=== PATIENT | female | born 2000 | race Native Hawaiian/Other Pacific Islander ===

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

== ENCOUNTER 2019-02-07 20:01 | Emergency (ER) | payer OTHER ==
[2019-02-07] MEDS ORDERED: FLUTICASONE 50MCG/SPRAY NASAL 16GM EA NOSTRIL STA (20:31)
--- NOTE | 2019-02-07 20:55 | XR ---
EXAMINATION TYPE: XR chest 2V DATE OF EXAM: 02/07/2019 COMPARISON: Prior chest x-ray 06/29/2016 HISTORY: Pain, cough and congestion TECHNIQUE: Frontal and lateral views of the chest are obtained. FINDINGS: There is no focal air space opacity, pleural effusion, or pneumothorax seen. The cardiac silhouette size is within normal limits. The osseous structures are intact. IMPRESSION: No acute cardiopulmonary process.
[2019-02-07 21:06] VITALS: BP 120/60; PULSE 96; RESP 18; TEMP 100.8
--- NOTE | 2019-02-07 21:27 | ED ---
General Adult HPI - General Chief complaint: Upper Respiratory Infection Stated complaint: Sore throat Time Seen by Provider: 02/07/19 20:10 Source: patient, RN notes reviewed, old records reviewed Mode of arrival: ambulatory Limitations: no limitations - History of Present Illness Initial comments: 18-year-old female patient with no pertinent past medical history of proceeding with approximate 2 days of sinus congestion, fevers, sore throat, waxing and waning headache, dry cough. Patient is that she is not . Patient has any other complaints today. Patient denies any abdominal pain, nausea vomiting or diarrhea. Patient denies any chest pain or shortness breath. Systemic: Pt denies fatigue, myalgia, rash. Pt denies weakness, night sweats, weight loss. Neuro: Pt denies visual disturbances, syncope or pre-syncope. HEENT: Pt denies ocular discharge or irritation, otalgia, pharyngitis or notable lymphadenopathy. Cardiopulmonary: Pt denies chest pain, SOB, heart palpitations, dyspnea on exertion. Abdominal/GI: Pt denies abdominal pain, n/v/d. : Pt denies dysuria, burning w/ urination, frequency/urgency. Denies new onset urinary or bowel incontinence. MSK: Pt denies myalgia, loss of strength or function in extremities. Neuro: Pt denies new onset weakness, paresthesias. - Related Data Previous Rx's Medication Instructions Recorded Amoxicillin/Potassium Clav 1 each PO Q12HR 7 Days #14 tab 02/07/19 [Augmentin 875-125 Tablet] Allergies Allergy/AdvReac Type Severity Reaction Status Date / Time polymyxin B sulfate Allergy Intermediate Rash/Hives Verified 02/07/19 20:06 [From Polytrim] trimethoprim [From Polytrim] Allergy Intermediate Rash/Hives Verified 02/07/19 20:06 Review of Systems ROS Statement: Those systems with pertinent positive or pertinent negative responses have been documented in the HPI. ROS Other: All systems not noted in ROS Statement are negative. Past Medical History Past Medical History: No Reported History Additional Past Medical History / Comment(s): MIGRAINES, admit 12/2015 for eye infection that "spread in to my brain" History of Any Multi-Drug Resistant Organisms: None Reported Past Surgical History: No Surgical Hx Reported Past Psychological History: No Psychological Hx Reported Smoking Status: Current every day smoker Past Alcohol Use History: None Reported Past Drug Use History: Marijuana - Past Family History Mother Family Medical History: No Reported History General Exam - General Exam Comments Initial Comments: Constitutional: NAD, AOX3, Pt has pleasant affect. HEENT: NC/AT, trachea midline, neck supple, no lymphadenopathy. Posterior pharynx non erythematous, without exudates. External ears appear normal, without discharge. Mucous membranes moist. Eyes PERRLA, EOM intact. There is no scleral icterus. No pallor noted. Maxillary sinus pressure reproducible upon palpation. Cardiopulmonary: RRR, no murmurs, rubs or gallops, no JVD noted. Lungs CTAB in anterior and posterior sam. No peripheral edema. Abdominal exam: Abdomen soft and non-distended. Abdomen non-tender to palpation in all 4 quadrants. Bowel sounds active in LLQ. No hepatosplenomegaly. No ecchymosis Neuro: CN II-XII intact. No nuchal rigidity. MSK: No posterior calf tenderness bilaterally, homans sign negative bilaterally. Posterior tibialis and radial pulse +2 bilaterally. Sensation intact in upper and lower extremities. Full active ROM in upper and lower extremities, 5/5 stregnth. Limitations: no limitations Course Vital Signs 02/07/19 21:05 Temperature 100.8 F H Pulse Rate 96 Respiratory 18 Rate Blood Pressure 120/60 O2 Sat by Pulse 97 Oximetry Medical Decision Making - Medical Decision Making 18-year-old female patient with no pertinent past medical history of proceeding with approximate 2 days of sinus congestion, fevers, sore throat, waxing and waning headache, dry cough. Patient is that she is not . Patient has any other complaints today. Patient denies any abdominal pain, nausea vomiting or diarrhea. Patient denies any chest pain or shortness breath. Patient vital signs displayed mild fever 100.8. Otherwise stable. Physical exam displayed: Maxillary sinus pressure reproducible upon palpation. Laboratory investigations revealed negative influenza. Chest x-ray revealed no acute cardiopulmonary process. Patient is treated for sinusitis. With Augmentin. Patient to follow up with primary care provider in 1-2 days. Case discussed in depth with Dr. Condon. Patient to return to ER if condition worsens in any way. - Lab Data Lab Results 02/07/19 Range/Units 20:00 Influenza Type A RNA Not Detected (Not Detectd) Influenza Type B (PCR) Not Detected (Not Detectd) Disposition Clinical Impression: Sinusitis Disposition: HOME SELF-CARE Condition: Stable Instructions (If sedation given, give patient instructions): Sinusitis (ED) Additional Instructions: Patient to adhere to previously discussed treatment plan and will take medication(s) as directed. Patient to follow up with PCP in 1-2 days. Patient to return to ED if symptoms do not improve. Please up with primary care provider in 1-2 days for continued evaluation. Please take medication as prescribed. Please control fever as necessary Tylenol/Motrin. Prescriptions: Amoxicillin/Potassium Clav [Augmentin 875-125 Tablet] 1 each PO Q12HR 7 Days #14 tab Is patient prescribed a controlled substance at d/c from ED?: No Referrals: None,Stated [Primary Care Provider] - 1-2 days
== END 2019-02-07 21:45 | disposition home or self-care (01) ==
LOC: EC 20:01
DX: J32.9 Chronic sinusitis, unspecified (principal); F17.200 Nicotine dependence, unspecified, uncomplicated; Z86.69 Personal history of other diseases of the nervous system and sense organs; Z88.1 Allergy status to other antibiotic agents
CPT/HCPCS: 71046; 87502; 99284

== ENCOUNTER 2019-02-10 14:59 | Emergency (ER) | payer OTHER ==
[2019-02-10 15:16] VITALS: BP 156/88; PULSE 73; RESP 18; TEMP 98.1
[2019-02-10] MEDS ORDERED: ACETAMINOPHEN TAB 325 MG TAB PO STA (15:22)
--- NOTE | 2019-02-10 15:35 | XR ---
EXAMINATION TYPE: XR ankle complete RT, XR foot complete RT DATE OF EXAM: 02/10/2019 CLINICAL HISTORY: Twisting injury with pain. TECHNIQUE: Frontal, lateral and oblique images of the right ankle and foot are obtained. COMPARISON: None. FINDINGS: There is no acute fracture/dislocation evident in the right ankle. The ankle mortise appe ars within normal limits. The overlying soft tissue appears unremarkable. There is no acute fracture or dislocation evident in the right foot. The joint spaces in the right f oot are preserved. Overlying soft tissue is unremarkable. IMPRESSION: There is no acute fracture or dislocation in the right ankle or foot.
--- NOTE | 2019-02-10 16:06 | ED ---
General Adult HPI - General Chief complaint: Extremity Injury, Lower Stated complaint: fall/ankle pain Time Seen by Provider: 02/10/19 15:12 Source: patient, RN notes reviewed, old records reviewed Mode of arrival: ambulatory Limitations: no limitations - History of Present Illness Initial comments: 18-year-old female patient with no pertinent past history presents ED if he is standing right foot injury. Patient reports that she was walking down stairs when she stumbled and x-rays pain in her right lateral foot. Patient is currently not ambulatory secondary to pain. Patient denies any other complaints. Patient states that she did not fall, had no trauma to head or neck. Systemic: Pt denies fatigue, fever/chills, rash. Pt denies weakness, night sweats, weight loss. Neuro: Pt denies headache, visual disturbances, syncope or pre-syncope. HEENT: Pt denies ocular discharge or irritation, otalgia, rhinorrhea, pharyngitis or notable lymphadenopathy. Cardiopulmonary: Pt denies chest pain, SOB, heart palpitations, dyspnea on exertion. Abdominal/GI: Pt denies abdominal pain, n/v/d. : Pt denies dysuria, burning w/ urination, frequency/urgency. Denies new onset urinary or bowel incontinence. MSK: Pt denies loss of strength or function in extremities. Neuro: Pt denies new onset weakness, paresthesias. - Related Data Previous Rx's Medication Instructions Recorded Amoxicillin/Potassium Clav 1 each PO Q12HR 7 Days #14 tab 02/07/19 [Augmentin 875-125 Tablet] Ibuprofen [Motrin] 600 mg PO Q6HR PRN #40 day 02/10/19 Allergies Allergy/AdvReac Type Severity Reaction Status Date / Time polymyxin B sulfate Allergy Intermediate Rash/Hives Verified 02/10/19 15:15 [From Polytrim] trimethoprim [From Polytrim] Allergy Intermediate Rash/Hives Verified 02/10/19 15:15 Review of Systems ROS Statement: Those systems with pertinent positive or pertinent negative responses have been documented in the HPI. ROS Other: All systems not noted in ROS Statement are negative. Past Medical History Past Medical History: No Reported History Additional Past Medical History / Comment(s): MIGRAINES, admit 12/2015 for eye infection that "spread in to my brain" History of Any Multi-Drug Resistant Organisms: None Reported Past Surgical History: No Surgical Hx Reported Past Psychological History: No Psychological Hx Reported Smoking Status: Current every day smoker Past Alcohol Use History: None Reported Past Drug Use History: Marijuana - Past Family History Mother Family Medical History: No Reported History General Exam - General Exam Comments Initial Comments: Constitutional: NAD, AOX3, Pt has pleasant affect. HEENT: NC/AT, trachea midline, neck supple, no lymphadenopathy. Posterior pharynx non erythematous, without exudates. External ears appear normal, without discharge. Mucous membranes moist. Eyes PERRLA, EOM intact. There is no scleral icterus. No pallor noted. Cardiopulmonary: RRR, no murmurs, rubs or gallops, no JVD noted. Lungs CTAB in anterior and posterior sam. No peripheral edema. Abdominal exam: Abdomen soft and non-distended. Abdomen non-tender to palpation in all 4 quadrants. Bowel sounds active in LLQ. No hepatosplenomegaly. No ecchymosis Neuro: CN II-XII grossly intact. No nuchal rigidity. MSK: Lateral aspect of right foot mildly tender to palpation. Mild amount of ecchymoses noted. Patient able to wiggle toes. Sensation intact. Capillary refill is less than 2 seconds. Patient's is not ambulatory secondary to pain. No posterior calf tenderness bilaterally, homans sign negative bilaterally. Posterior tibialis and radial pulse +2 bilaterally. Sensation intact in upper and lower extremities. Full active ROM in upper and lower extremities, 5/5 stregnth. Limitations: no limitations Course Vital Signs 02/10/19 15:15 Temperature 98.1 F Pulse Rate 73 Respiratory 18 Rate Blood Pressure 156/88 O2 Sat by Pulse 98 Oximetry Medical Decision Making - Medical Decision Making 18-year-old female patient with no pertinent past history presents ED if he is standing right foot injury. Patient reports that she was walking down stairs when she stumbled and x-rays pain in her right lateral foot. Patient is currently not ambulatory secondary to pain. Patient denies any other complaints. Patient states that she did not fall, had no trauma to head or neck. Patient vital signs stable, afebrile. Physical exam displayed: Lateral aspect of right foot mildly tender to palpation. Mild amount of ecchymoses noted. Patient able to wiggle toes. Sensation intact. Capillary refill is less than 2 seconds. Patient's is not ambulatory secondary to pain. Plain film revealed no acute fracture and ankle or foot. Patient placed in postop walking boot. Patient to use crutches, not bear weight until follow-up with primary care provider. Patient also to follow up with orthopedic surgeon referral. Patient denies ibuprofen as needed for pain. Patient to return to ER if condition worsens in any way. Case discussed with Dr. Condon. Disposition Clinical Impression: Sprain of foot, right Disposition: HOME SELF-CARE Condition: Stable Instructions (If sedation given, give patient instructions): Foot Sprain (ED) Additional Instructions: Patient to adhere to previously discussed treatment plan and will take medication(s) as directed. Patient to follow up with PCP in 1-2 days. Patient to return to ED if symptoms do not improve. Please use ibuprofen as needed for pain. Please do not bear weight, use crutches. Please help with primary care provider in 1-2 days. Please follow up with orthopedic consult 1-2 days. Please return to ER if condition worsens in any way. Prescriptions: Ibuprofen [Motrin] 600 mg PO Q6HR PRN #40 day PRN Reason: Pain Is patient prescribed a controlled substance at d/c from ED?: No Referrals: None,Stated [Primary Care Provider] - 1-2 days Federico Velasquez MD [STAFF PHYSICIAN] - [facility] - 1-2 days
== END 2019-02-10 16:29 | disposition home or self-care (01) ==
LOC: EC 14:59
DX: S93.601A Unspecified sprain of right foot, initial encounter (principal); F17.200 Nicotine dependence, unspecified, uncomplicated; Z88.1 Allergy status to other antibiotic agents; Z88.8 Allergy status to other drugs, medicaments and biological substances; W18.40XA Slipping, tripping and stumbling without falling, unspecified, initial encounter; Y93.01 Activity, walking, marching and hiking; Y92.009 Unspecified place in unspecified non-institutional (private) residence as the place of occurrence of the external cause
CPT/HCPCS: 99284

== ENCOUNTER 2019-05-11 00:14 | Emergency (ER) | payer OTHER ==
[2019-05-11 00:30] VITALS: BP 115/68; PULSE 85; RESP 18; TEMP 98.4
[2019-05-11 01:57] LABS: Appearance,Urine Cloudy (Clear); Bilirubin,Urine Negative (Negative); Blood,Urine Negative (Negative); Color,Urine Yellow; Glucose,Urine (UA) Negative (Negative); Ketones,Urine Trace (Negative); Leukocyte Esterase,Urine Small (Negative); Mucus,Urine Few /hpf; Nitrite,Urine Negative (Negative); Protein,Urine Trace (Negative); RBC,Urine 3 /hpf (0-5); Squamous Epithelial Cell,Urine 39 /hpf (0-4)
--- NOTE | 2019-05-11 03:28 | ED ---
Female Urogenital HPI - General Source: patient Mode of arrival: ambulatory Limitations: no limitations - History of Present Illness Last Menstrual Period: 05/03/19 <Veronica Bourne - Last Filed: 05/11/19 05:10> <Chantel Paula - Last Filed: 05/11/19 06:16> - General Chief complaint: Urogenital Stated complaint: Abdominal Pain Time Seen by Provider: 05/11/19 02:22 - History of Present Illness Initial comments: 18-year-old female patient presents to the emergency department today for evaluation of suprapubic abdominal pain and vaginal pain. Patient states over the last week she's been having intermittent episodes sometimes a few per day where she will have a sudden intense cramping pain to her vagina. Patient states this does double over and makes her feel like she cannot stand. States the pain radiates through to her back. Patient denies any pain with int ercourse. Patient denies any hematuria, dysuria, urinary urgency, urinary frequency. She states that she is having some white vaginal discharge. States that her period was 8 days late and was shorter than usual and heavier than usual. Patient denies any current vaginal discharge. Denies any history of . She denies any fever or chills with this. Denies any nausea, vomiting, constipation, or diarrhea. Patient denies any recent rash, shortness breath, chest pain, numbness, tingling, dizziness, weakness, visual changes, or any other complaints. (Veronica Bourne) - Related Data Previous Rx's Medication Instructions Recorded Amoxicillin/Potassium Clav 1 each PO Q12HR 7 Days #14 tab 02/07/19 [Augmentin 875-125 Tablet] Ibuprofen [Motrin] 600 mg PO Q6HR PRN #40 day 02/10/19 Ibuprofen [Motrin] 600 mg PO Q8HR PRN #30 tab 05/11/19 Allergies Allergy/AdvReac Type Severity Reaction Status Date / Time polymyxin B sulfate Allergy Intermediate Rash/Hives Verified 05/11/19 00:30 [From Polytrim] trimethoprim [From Polytrim] Allergy Intermediate Rash/Hives Verified 05/11/19 00:30 Review of Systems ROS Other: All systems not noted in ROS Statement are negative. <Veronica Bourne - Last Filed: 05/11/19 05:10> ROS Other: All systems not noted in ROS Statement are negative. <Chantel Paula P - Last Filed: 05/11/19 06:16> ROS Statement: Those systems with pertinent positive or pertinent negative responses have been documented in the HPI. Past Medical History Past Medical History: No Reported History Additional Past Medical History / Comment(s): MIGRAINES, admit 12/2015 for eye infection that "spread in to my brain" History of Any Multi-Drug Resistant Organisms: None Reported Past Surgical History: No Surgical Hx Reported Past Psychological History: No Psychological Hx Reported Smoking Status: Current every day smoker Past Alcohol Use History: None Reported Past Drug Use History: Marijuana - Past Family History Mother Family Medical History: No Reported History <Veronica Bourne M - Last Filed: 05/11/19 05:10> General Exam Limitations: no limitations General appearance: alert, in no apparent distress, other (Physical well- developed, well-nourished adult female patient in no acute distress. Vital signs upon presentation are temperature 98.4F, pulse 85, respirations 18, blood pressure 115/68, pulse ox 100% on room air.) Eye exam: Present: normal appearance, PERRL, EOMI. Absent: scleral icterus, conjunctival injection, periorbital swelling ENT exam: Present: normal exam, normal oropharynx, mucous membranes moist Respiratory exam: Present: normal lung sounds bilaterally. Absent: respiratory distress, wheezes, rales, rhonchi, stridor Cardiovascular Exam: Present: regular rate, normal rhythm, normal heart sounds. Absent: systolic murmur, diastolic murmur, rubs, gallop, clicks GI/Abdominal exam: Present: soft, tenderness (Supra pubic), normal bowel sounds. Absent: distended, guarding, rebound, rigid External exam: Present: normal external exam Speculum exam: Present: vaginal discharge (White thin). Absent: normal speculum exam, vaginal bleeding By manual exam: Present: cervical motion tenderness, adnexal tenderness (Left). Absent: normal by manual exam Neurological exam: Present: alert, oriented X3, CN II-XII intact Psychiatric exam: Present: normal affect, normal mood Skin exam: Present: warm, dry, intact, normal color. Absent: rash <Veronica Bourne M - Last Filed: 05/11/19 05:10> Course Vital Signs 06/11/19 00:25 Temperature 98.4 F Pulse Rate 85 Respiratory 18 Rate Blood Pressure 115/68 O2 Sat by Pulse 100 Oximetry Medical Decision Making - Lab Data Result diagrams: 05/11/19 03:23 05/11/19 03:23 - Radiology Data Radiology results: report reviewed, image reviewed <Veronica Bourne - Last Filed: 05/11/19 05:10> - Lab Data Result diagrams: 05/11/19 03:23 05/11/19 03:23 <Chantel Paula - Last Filed: 05/11/19 06:16> - Medical Decision Making 18-year-old female patient presented to the emergency department today for evaluation of vaginal pain and cramping. Physical examination did reveal some mild suprapubic tenderness. Pelvic exam was obtained, patient did have significant discomfort with pelvic and bimanual exam. There is some white cervical discharge which was sent for culture. Urinalysis shows no evidence of infection. CT abdomen and pelvis was obtained and did show prominent left ovary but no evidence for ovarian cyst or abscess. Patient be discharged to follow up with a plant buyer for further evaluation. She is given a prescription for ibuprofen. Return parameters were discussed in detail. She verbalizes understanding and agrees with this plan. (Veronica Bourne) I was available for consultation in the emergency department. The history and physical exam were done by the midlevel provider. I was consulted for this patient's care. I reviewed the case with the midlevel provider and based on their presentation of the patient, I agree with the assessment, medical decision making and plan of care as documented. Chart was dictated using [employer] dictation software. Attempts were made to correct any dictation errors however some typographical errors may persist. (Chantel Paula) - Lab Data Lab Results 05/11/19 05/11/19 05/11/19 Range/Units 00:29 00:29 03:06 WBC (4.0-11.0) k/uL RBC (3.80-5.40) m/uL Hgb (11.4-16.0) gm/dL Hct (34.0-46.0) % MCV (80.0-100.0) fL MCH (25.0-35.0) pg MCHC (31.0-37.0) g/dL RDW (11.5-15.5) % Plt Count (150-450) k/uL Neutrophils % % Lymphocytes % % Monocytes % % Eosinophils % % Basophils % % Neutrophils # (1.3-7.7) k/uL Lymphocytes # (1.0-4.8) k/uL Monocytes # (0-1.0) k/uL Eosinophils # (0-0.7) k/uL Basophils # (0-0.2) k/uL Sodium (137-145) mmol/L Potassium (3.5-5.1) mmol/L Chloride (98-107) mmol/L Carbon Dioxide (22-30) mmol/L Anion Gap mmol/L BUN (7-17) mg/dL Creatinine (0.52-1.04) mg/dL Est GFR (CKD-EPI)AfAm (>60 ml/min/1.73 sqM) Est GFR (CKD-EPI)NonAf (>60 ml/min/1.73 sqM) Glucose (74-99) mg/dL Calcium (8.4-10.2) mg/dL Total Bilirubin (0.2-1.3) mg/dL AST (14-36) U/L ALT (9-52) U/L Alkaline Phosphatase (38-126) U/L Total Protein (6.3-8.2) g/dL Albumin (3.5-5.0) g/dL Urine Color Yellow Urine Appearance Cloudy H (Clear) Urine pH 6.0 (5.0-8.0) Ur Specific [place] 1.030 (1.001-1.035) Urine Protein Trace H (Negative) Urine Glucose (UA) Negative (Negative) Urine Ketones Trace H (Negative) Urine Blood Negative (Negative) Urine Nitrite Negative (Negative) Urine Bilirubin Negative (Negative) Urine Urobilinogen 2.0 (<2.0) mg/dL Ur Leukocyte Esterase Small H (Negative) Urine RBC 3 (0-5) /hpf Urine WBC 5 (0-5) /hpf Ur Squamous Epith Cells 39 H (0-4) /hpf Urine Mucus Few H (None) /hpf Urine HCG, Qual Not Detected (Not Detectd) Trichomonas Ag (Rapid) Negative (Negative) 05/11/19 05/11/19 Range/Units 03:23 03:23 WBC 10.5 (4.0-11.0) k/uL RBC 4.45 (3.80-5.40) m/uL Hgb 12.0 (11.4-16.0) gm/dL Hct 36.8 (34.0-46.0) % MCV 82.7 (80.0-100.0) fL MCH 27.0 (25.0-35.0) pg MCHC 32.6 (31.0-37.0) g/dL RDW 15.2 (11.5-15.5) % Plt Count 199 (150-450) k/uL Neutrophils % 51 % Lymphocytes % 38 % Monocytes % 6 % Eosinophils % 3 % Basophils % 0 % Neutrophils # 5.3 (1.3-7.7) k/uL Lymphocytes # 4.0 (1.0-4.8) k/uL Monocytes # 0.6 (0-1.0) k/uL Eosinophils # 0.3 (0-0.7) k/uL Basophils # 0.0 (0-0.2) k/uL Sodium 142 (137-145) mmol/L Potassium 3.3 L (3.5-5.1) mmol/L Chloride 110 H (98-107) mmol/L Carbon Dioxide 23 (22-30) mmol/L Anion Gap 9 mmol/L BUN 10 (7-17) mg/dL Creatinine 0.70 (0.52-1.04) mg/dL Est GFR (CKD-EPI)AfAm >90 (>60 ml/min/1.73 sqM) Est GFR (CKD-EPI)NonAf >90 (>60 ml/min/1.73 sqM) Glucose 90 (74-99) mg/dL Calcium 9.5 (8.4-10.2) mg/dL Total Bilirubin 0.2 (0.2-1.3) mg/dL AST 22 (14-36) U/L ALT 22 (9-52) U/L Alkaline Phosphatase 62 (38-126) U/L Total Protein 7.2 (6.3-8.2) g/dL Albumin 4.5 (3.5-5.0) g/dL Urine Color Urine Appearance (Clear) Urine pH (5.0-8.0) Ur Specific Knox (1.001-1.035) Urine Protein (Negative) Urine Glucose (UA) (Negative) Urine Ketones (Negative) Urine Blood (Negative) Urine Nitrite (Negative) Urine Bilirubin (Negative) Urine Urobilinogen (<2.0) mg/dL Ur Leukocyte Esterase (Negative) Urine RBC (0-5) /hpf Urine WBC (0-5) /hpf Ur Squamous Epith Cells (0-4) /hpf Urine Mucus (None) /hpf Urine HCG, Qual (Not Detectd) Trichomonas Ag (Rapid) (Negative) - Radiology Data CT abdomen and pelvis with contrast was obtained. Report was reviewed in its entirety. Impression by Dr. Horton shows no acute intra-abdominal process. Hepatomegaly with steatosis. Prominent left ovary measuring up to 4.4 cm. (Veronica Bourne) Disposition Is patient prescribed a controlled substance at d/c from ED?: No Time of Disposition: 05:06 <Veronica Bourne - Last Filed: 05/11/19 05:10> <Chantel Paula - Last Filed: 05/11/19 06:16> Clinical Impression: Vaginal pain Disposition: HOME SELF-CARE Condition: Good Additional Instructions: Take medication as directed. Follow up with plant buyer for further evaluation as soon as possible. Return to the emergency department immediately for any new, worsening, or concerning symptoms. Prescriptions: Ibuprofen [Motrin] 600 mg PO Q8HR PRN #30 tab PRN Reason: Pain Referrals: Bisi Fontaine DO [Doctor of Osteopathic Medicine] - 1-2 days
[2019-05-11 03:38] LABS: Basophils % (A) 0 %; Eosinophils # (A) 0.3 k/uL (0-0.7); Eosinophils % (A) 3 %; HCT 36.8 % (34.0-46.0); Lymphocytes % (A) 38 %; MCHC 32.6 g/dL (31.0-37.0); MCV 82.7 fL (80.0-100.0); Mean Platelet Volume 8.2; Monocytes # (A) 0.6 k/uL (0-1.0); Monocytes % (A) 6 %; Neutrophils # (A) 5.3 k/uL (1.3-7.7); Neutrophils % (A) 51 %; Platelet Count 199 k/uL (150-450); RBC 4.45 m/uL (3.80-5.40); RDW 15.2 % (11.5-15.5); WBC 10.5 k/uL (4.0-11.0)
[2019-05-11 03:51] LABS: ALT 22 U/L (9-52); AST 22 U/L (14-36); African American GFR (CKD) >90 (>60 ml/min/1.73 sqM); Albumin 4.5 g/dL (3.5-5.0); Alkaline Phosphatase 62 U/L (38-126); Anion Gap 9 mmol/L; Blood Urea Nitrogen 10 mg/dL (7-17); Calcium 9.5 mg/dL (8.4-10.2); Carbon Dioxide 23 mmol/L (22-30); Chloride 110 mmol/L (98-107); Glucose 90 mg/dL (74-99); Potassium 3.3 mmol/L (3.5-5.1); Sodium 142 mmol/L (137-145); Total Bilirubin 0.2 mg/dL (0.2-1.3); Total Protein 7.2 g/dL (6.3-8.2)
--- NOTE | 2019-05-11 04:52 | CT ---
EXAM: CT Abdomen and Pelvis With Intravenous Contrast CLINICAL HISTORY: ITS.REASON CT Reason: Pain TECHNIQUE: Axial computed tomography images of the abdomen and pelvis with intravenous contrast. CTDI is 21 mGy and DLP is 1034 mGy-cm. This CT exam was performed using one or more of the following dose reduction techniques: automated exposure control, adjustment of the mA and/or kV according to patient size, and/or use of iterative reconstruction technique. COMPARISON: 07/26/15 CT abdomen FINDINGS: Lung bases: No mass. No consolidation. ABDOMEN: Liver: Enlarged with mild steatosis. Gallbladder and bile ducts: Unremarkable. Pancreas: Unremarkable. Spleen: Unremarkable. Adrenals: Unremarkable. Kidneys and ureters: No hydronephrosis. Stomach and bowel: No bowel obstruction. No bowel wall thickening. PELVIS: Appendix: No evidence of appendicitis. Bladder: Unremarkable. Reproductive: Left ovary measures up to 4.4 cm. Right ovary measures approximately 3 cm. ABDOMEN and PELVIS: Intraperitoneal space: Unremarkable. Bones/joints: No acute fractures. Soft tissues: Unremarkable. Vasculature: No abdominal aortic aneurysm. Lymph nodes: No enlarged lymph nodes. IMPRESSION: No acute intra-abdominal process. Hepatomegaly with steatosis. Prominent left ovary measuring up to 4.4 cm.
[2019-05-11] MEDS ORDERED: POTASSIUM CHLORIDE ER 20 MEQ TAB.ER PO STA (05:03)
[2019-05-12 16:08] LABS: N. gonorrhoeae,PCR Negative (Neg,Equiv); Neisseria Source Vagina
[2019-05-12 16:12] LABS: C. trachomatis,PCR Negative (Neg,Equiv); Chlamydia trachomatis Source Vagina
== END 2019-05-11 05:30 | disposition home or self-care (01) ==
LOC: EC 00:14
DX: R10.2 Pelvic and perineal pain (principal); R10.9 Unspecified abdominal pain; N89.8 Other specified noninflammatory disorders of vagina; F17.200 Nicotine dependence, unspecified, uncomplicated; Z88.1 Allergy status to other antibiotic agents
CPT/HCPCS: 36415; 80053; 85025; 81001; 81025; 87808; 87491; 87591; 87070; 87205; 74177; 99284; Q9967

== ENCOUNTER 2019-09-04 21:14 | Emergency (ER) | payer OTHER ==
--- NOTE | 2019-09-04 23:09 | US ---
EXAMINATION TYPE: Transabdominal DATE OF EXAM: 09/04/2019 10:48 PM COMPARISON: NONE CLINICAL HISTORY: fall, 6 wks preg, cramping/pain. Patient fell down 4 stairs this afternoon, crampin g EXAM PERFORMED: Transvaginal (TV) and Transabdominal (TA) EXAM MEASUREMENTS: GESTATIONAL AGE / DATING Physician Established: Not yet established Dates by LMP: (6 weeks/2 days) EDC: 04/27/20 Dates by First Scan: No previous this is first scan Dates by Current Scan for: No IUP seen at this time MATERNAL ANATOMY Uterus: 7.1 x 3.4 x 5.1cm Right Ovary: 2.6 x 1.4 x 1.7cm Left Ovary: 5.5 x 2.5 x 4.3cm Post CDS / Adnexa: free fluid posterior cul-de-sac Presence of free fluid: yes Presence of corpus luteal cyst: cystic area left ovary = 2.2 x 2.2 x 2.2cm GESTATION / SURVEY IUP: No IUP seen at this time Date of LMP: 07/22/19 Beta HcG (if available): Not available at this time Technical limitations due to overlying bowel content, limited evaluation of right ovary. No evidence of IUP at this time. Cystic area left ovary. Free fluid posterior cul-de-sac IMPRESSION: There is some free fluid in the cul-de-sac. Empty uterus. No solid adnexal mass. Left ovarian cyst. N o sign of ectopic .
--- NOTE | 2019-09-04 23:11 | ED ---
Fall HPI - General Chief Complaint: Fall Stated Complaint: 6wks ,fell down stairs Time Seen by Provider: 09/04/19 21:33 Source: patient Mode of arrival: ambulatory - History of Present Illness Initial Comments: 19-year-old female with history of migraines presents emergency department for chief complaint of abdominal cramping status post fall. Patient states late morning she fell down 4 steps. She states she fell onto her bottom. Patient states that she had had abdominal cramping since. Patient states she has not had back pain neck pain she denies any head injury or injury to the neck. Patient denies any direct abdominal trauma. Patient denies any trauma to the chest or face. Patient has a pain in the upper or lower extremities. Patient was concerned that the cramping was a miscarriage and presents emergency department for further evaluation. Patient denies any vaginal bleeding denies any vaginal discharge orders dysuria urgency frequency hematuria. Patient states she started to feel slightly better. Patient states her last menstrual period was July 22, she states she has had an evaluation outpatient by a clinic she states she believes she is about 6 weeks . Remaining review of systems negative. Upon arrival patient appears well she is accompanied by 2 friends does not appear acute distress - Related Data Previous Rx's Medication Instructions Recorded Pnv No.95/Ferrous Fum/Folic AC 1 each PO DAILY 30 Days #30 tablet 09/05/19 [ Multivitamin Tablet] Allergies Allergy/AdvReac Type Severity Reaction Status Date / Time polymyxin B sulfate Allergy Intermediate Rash/Hives Verified 09/04/19 21:26 [From Polytrim] trimethoprim [From Polytrim] Allergy Intermediate Rash/Hives Verified 09/04/19 21:26 Review of Systems ROS Statement: Those systems with pertinent positive or pertinent negative responses have been documented in the HPI. ROS Other: All systems not noted in ROS Statement are negative. Past Medical History Past Medical History: No Reported History Additional Past Medical History / Comment(s): MIGRAINES, admit 12/2015 for eye infection that "spread in to my brain" History of Any Multi-Drug Resistant Organisms: None Reported Past Surgical History: No Surgical Hx Reported Past Psychological History: No Psychological Hx Reported Smoking Status: Current every day smoker Past Alcohol Use History: None Reported Past Drug Use History: Marijuana - Past Family History Mother Family Medical History: No Reported History General Exam - General Exam Comments Initial Comments: General: The patient is awake and alert, in no distress, and does not appear acutely ill. Eye: +3 mm pupils are equal, round and reactive to light, extra-ocular movements are intact. No nystagmus. There is normal conjunctiva bilaterally. No signs of icterus. Ears, nose, mouth and throat: There are moist mucous membranes and no oral lesions. Neck: The neck is supple, there is no tenderness or JVD. Cardiovascular: There is a regular rate and rhythm. No murmur, rub or gallop is appreciated. Respiratory: Lungs are clear to auscultation, respirations are non-labored, breath sounds are equal. No wheezes, stridor, rales, or rhonchi. Gastrointestinal: Soft, non-distended, non-tender abdomen without masses or organomegaly noted. There is no rebound or guarding present. No CVA tenderness. Pelvic exam revealed no external lesions, vaginal mucosa pink well rugated. Scant amount of discharge with no odor on examination. Patient has no cervical motion or adnexal tenderness. No blood in the vaginal vault. Os closed Musculoskeletal: Normal inspection of cervical thoracic and lumbar spine. There is no midline or paravertebral tenderness. No evidence of bruising. Normal ROM, no tenderness. Strength 5/5. Sensation intact. Radial pulses equal bilaterally 2+. Neurological: A&O x 3. CN II-XII intact grossly, There are no obvious motor or sensory deficits. Coordination appears grossly intact. Speech is normal. Skin: Skin is warm and dry and no rashes or lesions are noted. Psychiatric: Cooperative, appropriate mood & affect, normal judgment. Limitations: no limitations Course Vital Signs 09/04/19 09/05/19 21:23 00:34 Temperature 98.3 F 98.1 F Pulse Rate 106 H 99 Respiratory 18 18 Rate Blood Pressure 120/74 136/96 O2 Sat by Pulse 100 98 Oximetry Medical Decision Making - Medical Decision Making 19-year-old female presenting for evaluation of cramping after falling. Patient states she is currently . Last menstrual period July 22 leave she is roughly 6 weeks . Ultrasound did not reveal interuterine . There was a scant amount of free fluid in the posterior cul-de-sac. There is no findings on the ultrasound consistent with ectopic . Patient has hCG less than 900. Patient O+ there is no bleeding on vaginal examination no adnexal or cervical motion tenderness and cervical os is closed. Differential diagnosis includes threatened/active miscarriage versus early . Patient does not appear in distress she is well-appearing no [place] pain on examination. At this time after discussing case in detail reviewing ultrasound studies and labs with my attending provider Dr. Paula we feel patient stable for discharge with outpatient [employer] follow-up. Recommended repeat hCG as well as ultrasound. Patient is agreeable to this care plan she has requested discharge on multiple occasions stating she is ready to go home. Patient was discharged appearing well return parameters were discussed including immediate return for severe pain, patient was discharged appearing well - Lab Data Result diagrams: 09/04/19 22:45 09/04/19 22:45 Lab Results 09/04/19 09/04/19 09/04/19 Range/Units 22:45 22:45 22:45 WBC 12.5 H (4.0-11.0) k/uL RBC 4.60 (3.80-5.40) m/uL Hgb 12.8 (11.4-16.0) gm/dL Hct 40.0 (34.0-46.0) % MCV 87.0 (80.0-100.0) fL MCH 27.8 (25.0-35.0) pg MCHC 32.0 (31.0-37.0) g/dL RDW 14.5 (11.5-15.5) % Plt Count 196 (150-450) k/uL Neutrophils % 57 % Lymphocytes % 32 % Monocytes % 6 % Eosinophils % 3 % Basophils % 1 % Neutrophils # 7.1 (1.3-7.7) k/uL Lymphocytes # 4.0 (1.0-4.8) k/uL Monocytes # 0.7 (0-1.0) k/uL Eosinophils # 0.4 (0-0.7) k/uL Basophils # 0.1 (0-0.2) k/uL Sodium 141 (137-145) mmol/L Potassium 4.0 (3.5-5.1) mmol/L Chloride 107 (98-107) mmol/L Carbon Dioxide 22 (22-30) mmol/L Anion Gap 12 mmol/L BUN 7 (7-17) mg/dL Creatinine 0.62 (0.52-1.04) mg/dL Est GFR (CKD-EPI)AfAm >90 (>60 ml/min/1.73 sqM) Est GFR (CKD-EPI)NonAf >90 (>60 ml/min/1.73 sqM) Glucose 69 L (74-99) mg/dL Calcium 9.5 (8.4-10.2) mg/dL Total Bilirubin 0.4 (0.2-1.3) mg/dL AST 26 (14-36) U/L ALT 19 (9-52) U/L Alkaline Phosphatase 53 (38-126) U/L Total Protein 7.7 (6.3-8.2) g/dL Albumin 4.6 (3.5-5.0) g/dL HCG, Quant 894.6 mIU/mL Urine Color Urine Appearance (Clear) Urine pH (5.0-8.0) Ur Specific Dendron (1.001-1.035) Urine Protein (Negative) Urine Glucose (UA) (Negative) Urine Ketones (Negative) Urine Blood (Negative) Urine Nitrite (Negative) Urine Bilirubin (Negative) Urine Urobilinogen (<2.0) mg/dL Ur Leukocyte Esterase (Negative) Trichomonas Ag (Rapid) (Negative) Blood Type A Positive Blood Type Recheck No Previous Record Bld Type Recheck Status CABO Indicated Antibody Screen NEGATIVE Spec Expiration Date 09/07/2019232809/04/19 09/05/19 Range/Units 22:57 00:20 WBC (4.0-11.0) k/uL RBC (3.80-5.40) m/uL Hgb (11.4-16.0) gm/dL Hct (34.0-46.0) % MCV (80.0-100.0) fL MCH (25.0-35.0) pg MCHC (31.0-37.0) g/dL RDW (11.5-15.5) % Plt Count (150-450) k/uL Neutrophils % % Lymphocytes % % Monocytes % % Eosinophils % % Basophils % % Neutrophils # (1.3-7.7) k/uL Lymphocytes # (1.0-4.8) k/uL Monocytes # (0-1.0) k/uL Eosinophils # (0-0.7) k/uL Basophils # (0-0.2) k/uL Sodium (137-145) mmol/L Potassium (3.5-5.1) mmol/L Chloride (98-107) mmol/L Carbon Dioxide (22-30) mmol/L Anion Gap mmol/L BUN (7-17) mg/dL Creatinine (0.52-1.04) mg/dL Est GFR (CKD-EPI)AfAm (>60 ml/min/1.73 sqM) Est GFR (CKD-EPI)NonAf (>60 ml/min/1.73 sqM) Glucose (74-99) mg/dL Calcium (8.4-10.2) mg/dL Total Bilirubin (0.2-1.3) mg/dL AST (14-36) U/L ALT (9-52) U/L Alkaline Phosphatase (38-126) U/L Total Protein (6.3-8.2) g/dL Albumin (3.5-5.0) g/dL HCG, Quant mIU/mL Urine Color Yellow Urine Appearance Clear (Clear) Urine pH 6.5 (5.0-8.0) Ur Specific Dendron 1.026 (1.001-1.035) Urine Protein Trace H (Negative) Urine Glucose (UA) Negative (Negative) Urine Ketones Negative (Negative) Urine Blood Negative (Negative) Urine Nitrite Negative (Negative) Urine Bilirubin Negative (Negative) Urine Urobilinogen <2.0 (<2.0) mg/dL Ur Leukocyte Esterase Negative (Negative) Trichomonas Ag (Rapid) Negative (Negative) Blood Type Blood Type Recheck Bld Type Recheck Status Antibody Screen Spec Expiration Date Disposition Clinical Impression: Threatened , Abdominal cramping Disposition: HOME SELF-CARE Condition: Good Instructions (If sedation given, give patient instructions): Threatened Miscarriage (ED) Additional Instructions: Please use medication as discussed. Please follow-up with OBGYN in next week, repeat HCG and ultrasound. Please return to emergency room if the symptoms inc rease or worsen or for any other concerns. Prescriptions: Pnv No.95/Ferrous Fum/Folic AC [ Multivitamin Tablet] 1 each PO DAILY 30 Days #30 tablet Is patient prescribed a controlled substance at d/c from ED?: No Referrals: None,Stated [Primary Care Provider] - 1-2 days Jocelynn Guzman MD [STAFF PHYSICIAN] - 1-2 days Time of Disposition: 00:25
[2019-09-04 23:20] LABS: Basophils # (A) 0.1 k/uL (0-0.2); Basophils % (A) 1 %; Eosinophils # (A) 0.4 k/uL (0-0.7); Eosinophils % (A) 3 %; HGB 12.8 gm/dL (11.4-16.0); Lymphocytes % (A) 32 %; MCH 27.8 pg (25.0-35.0); Mean Platelet Volume 7.8; Monocytes # (A) 0.7 k/uL (0-1.0); Monocytes % (A) 6 %; Neutrophils # (A) 7.1 k/uL (1.3-7.7); Neutrophils % (A) 57 %; Platelet Count 196 k/uL (150-450); RDW 14.5 % (11.5-15.5); WBC 12.5 k/uL (4.0-11.0)
[2019-09-04 23:21] LABS: Appearance,Urine Clear (Clear); Bilirubin,Urine Negative (Negative); Blood,Urine Negative (Negative); Color,Urine Yellow; Glucose,Urine (UA) Negative (Negative); Ketones,Urine Negative (Negative); Leukocyte Esterase,Urine Negative (Negative); Nitrite,Urine Negative (Negative); PH, Urine 6.5 (5.0-8.0); Protein,Urine Trace (Negative); Specific Gravity,Urine 1.026 (1.001-1.035); Urobilinogen,Urine <2.0 mg/dL (<2.0)
[2019-09-04 23:33] LABS: ALT 19 U/L (9-52); AST 26 U/L (14-36); African American GFR (CKD) >90 (>60 ml/min/1.73 sqM); Albumin 4.6 g/dL (3.5-5.0); Alkaline Phosphatase 53 U/L (38-126); Anion Gap 12 mmol/L; Blood Urea Nitrogen 7 mg/dL (7-17); Calcium 9.5 mg/dL (8.4-10.2); Carbon Dioxide 22 mmol/L (22-30); Chloride 107 mmol/L (98-107); Glucose 69 mg/dL (74-99); Sodium 141 mmol/L (137-145); Total Bilirubin 0.4 mg/dL (0.2-1.3); Total Protein 7.7 g/dL (6.3-8.2)
[2019-09-04 23:49] LABS: HCG,Quantitative Serum 894.6 mIU/mL
[2019-09-05 00:19] VITALS: TEMP 98.1
[2019-09-05 00:35] VITALS: BP 136/96; PULSE 99; RESP 18
[2019-09-06 13:39] LABS: C. trachomatis,PCR Negative (Neg,Equiv); Chlamydia trachomatis Source Vagina; N. gonorrhoeae,PCR Negative (Neg,Equiv); Neisseria Source Vagina
== END 2019-09-05 00:35 | disposition home or self-care (01) ==
LOC: EC 21:14
DX: O20.0 Threatened abortion (principal); Z67.40 Type O blood, Rh positive; O99.331 Smoking (tobacco) complicating pregnancy, first trimester; F17.200 Nicotine dependence, unspecified, uncomplicated; Z88.1 Allergy status to other antibiotic agents; W10.9XXA Fall (on) (from) unspecified stairs and steps, initial encounter; Y92.89 Other specified places as the place of occurrence of the external cause; Z3A.01 Less than 8 weeks gestation of pregnancy
CPT/HCPCS: 36415; 76801; 76817; 80053; 81003; 84702; 85025; 86850; 86900; 86901; 87070; 87491; 87591; 87808; 99284

== ENCOUNTER → 2019-11-03 | Outpatient (CLI) | payer OTHER ==
[2019-11-03 14:20] LABS: HCT 38.5 % (34.0-46.0); HGB 13.2 gm/dL (11.4-16.0); MCH 29.9 pg (25.0-35.0); MCHC 34.2 g/dL (31.0-37.0); MCV 87.5 fL (80.0-100.0); Mean Platelet Volume 7.2; Platelet Count 181 k/uL (150-450); RDW 14.2 % (11.5-15.5); WBC 13.2 k/uL (4.0-11.0)
[2019-11-03 20:02] LABS: African American GFR (CKD) 152.1 (60.0-200.0); Non-African American GFR(CKD) 131.2 (60.0-200.0)
[2019-11-03 20:23] LABS: Hepatitis B Surface Antigen Non-Reactive (Non-Reactive)
[2019-11-03 20:31] LABS: HIV 1 AB Non-Reactive (Non-Reactive); HIV 2 AB Non-Reactive (Non-Reactive); HIV AB P24 Non-Reactive (Non-Reactive); HIV P24 AG Non-Reactive (Non-Reactive)
[2019-11-04 16:15] LABS: C. trachomatis,PCR Negative (Neg,Equiv); Chlamydia trachomatis Source Urine; N. gonorrhoeae,PCR Negative (Neg,Equiv); Neisseria Source Urine
== END | disposition home or self-care (01) ==
LOC: LABWHC1 13:35
PROVIDERS: ATTEND Obstetrics & Gynecology
DX: Z34.01 Encounter for supervision of normal first pregnancy, first trimester (principal); Z3A.00 Weeks of gestation of pregnancy not specified
CPT/HCPCS: 36415; 82565; 82947; 85027; 86762; 86780; 86850; 86900; 86901; 87340; 87390; 87491; 87591

== ENCOUNTER 2020-01-04 19:50 | Outpatient (CLI) | payer OTHER ==
[2020-01-04 20:37] VITALS: BP 138/73; PULSE 98; RESP 18; TEMP 97.7
[2020-01-04 20:44] LABS: Appearance,Urine Clear (Clear); Bilirubin,Urine Negative (Negative); Blood,Urine Negative (Negative); Color,Urine Light Yellow; Glucose,Urine (UA) Negative (Negative); Ketones,Urine Negative (Negative); Leukocyte Esterase,Urine Negative (Negative); Nitrite,Urine Negative (Negative); PH, Urine 6.5 (5.0-8.0); Protein,Urine Negative (Negative); Specific Gravity,Urine 1.008 (1.001-1.035); Urobilinogen,Urine <2.0 mg/dL (<2.0)
--- NOTE | 2020-01-05 06:45 | P.MSEPDOC ---
Presenting Problems - Arrival Data Date of Arrival on Unit: 01/04/20 Time of Arrival on Unit: 19:50 Mode of Transport: Ambulatory - Complaint OB-Reason for Admission/Chief Complaint: Pain Comment: pain started 45 min prior to arrival when walking home from a friends house. lower abdominal and lower back pt rates 8/10. Medical History - Information : 1 Para: 0 Term: 0 : 0 Abortions: Spontaneous or Elective: 0 Number of Living Children: 0 - Gestational Age Gestational Age by CORINNE (wks/days): 22 Weeks and 0 Days Review of Systems - Review of Systems Constitutional: No problems Breast: No problems ENT: No problems Cardiovascular: No problems Respiratory: No problems Gastrointestinal: No problems Genitourinary: Urgency Musculoskeletal: No problems Neurological: No problems Skin: No problems Vital Signs - Temperature Temperature: 97.7 F Temperature Source: Temporal Artery Scan - Pulse Right Pulse Oximetery Pulse Rate: 98 Pulse Assessment Method: Pulse Oximetry - Respirations Respiratory Rate: 18 Oxygen Delivery Method: Room Air O2 Sat by Pulse Oximetry: 98 - Blood Pressure Right Arm Blood Pressure: 138/73 Blood Pressure Mean: 94 Blood Pressure Source: Automatic Cuff Medical Screen Scoring (Pre) - Cervical Exam Dilation: 0 cm = 0 Membranes: Intact - Uterine Contractions Frequency: N/A Duration: N/A Intensity: N/A - Maternal Vital Signs Maternal Temperature: N/A Maternal Blood Pressure: N/A Signs of Preeclampsia: N/A Maternal Respirations: N/A - Maternal Trauma Maternal Trauma: N/A - Assessment - Baby A Baseline FHR: 140 Heart Rate - NICHD Category: Category I (Normal) = 0 Position: N/A Station: N/A - Total Score - Baby A Total Score - Baby A: 0 - Total Score - Baby B Total Score - Baby B: 0 - Total Score - Baby C Total Score - Baby C: 0 - Level of Risk - Baby A Level of Risk - Baby A: Low (0-5) - Level of Risk - Baby B Level of Risk - Baby B: Low (0-5) - Level of Risk - Baby C Level of Risk - Baby C: Low (0-5) Physician Notification (Pre) - Physician Notified Physician Notified Date: 01/04/20 Physician Notified Time: 20:15 New Order Received: Yes - Notification Comment Comment: order received to send U/A and culture and sensitivity and check patients cervix. physician states if patients cervix is closed, pt to be discharged with instructions to increase fluids and to call office for culture results in 2 days. states not necessary to wait for U/A prior to discharge Disposition - Disposition OB Disposition: Discharge to home Discharge Date: 01/04/20 Discharge Time: 20:30 I agree with the RN Medical Screening Exam: Yes Risk & Benefit of care provided described in d/c instruction: Yes Diagnosis: FALSE LABOR BEFORE 37 COMPLETED WEEKS OF GEST, THIRD TRI
== END 2020-01-04 20:30 | disposition home or self-care (01) ==
LOC: FBPOP 19:50
PROVIDERS: ATTEND Obstetrics & Gynecology
DX: O47.02 False labor before 37 completed weeks of gestation, second trimester (principal); Z3A.22 22 weeks gestation of pregnancy
CPT/HCPCS: 81003; 87086; G0463; 99213

== ENCOUNTER 2020-02-12 19:05 | Outpatient (CLI) | payer OTHER ==
[2020-02-12 20:17] VITALS: BP 128/75; PULSE 95; RESP 16; TEMP 96.5
--- NOTE | 2020-02-22 07:37 | P.MSEPDOC ---
Presenting Problems - Arrival Data Date of Arrival on Unit: 02/12/20 Time of Arrival on Unit: 19:05 Mode of Transport: Ambulatory - Complaint OB-Reason for Admission/Chief Complaint: Decreased Movement Comment: Pt states decreased movement since yesterday Medical History - Information : 1 Para: 0 Term: 0 : 0 Abortions: Spontaneous or Elective: 0 Number of Living Children: 0 - Gestational Age Gestational Age by CORINNE (wks/days): 29 Weeks and 1 Days - History Complications: No Care Review of Systems - Review of Systems Constitutional: No problems Breast: No problems ENT: No problems Cardiovascular: No problems Respiratory: No problems Gastrointestinal: No problems Genitourinary: No problems Musculoskeletal: No problems Neurological: No problems Skin: No problems Vital Signs - Temperature Temperature: 96.5 F Temperature Source: Temporal Artery Scan - Pulse Right Brachial Pulse Rate: 95 Pulse Assessment Method: Automatic Cuff - Respirations Respiratory Rate: 16 Oxygen Delivery Method: Room Air O2 Sat by Pulse Oximetry: 98 - Blood Pressure Right Arm Blood Pressure: 128/75 Blood Pressure Mean: 92 Blood Pressure Source: Automatic Cuff Medical Screen Scoring (Pre) - Cervical Exam Dilation: Exam Deferred Effacement: Exam Deferred - Uterine Contractions Frequency: N/A Duration: N/A Intensity: N/A - Maternal Vital Signs Maternal Temperature: N/A Signs of Preeclampsia: N/A Maternal Respirations: N/A - Maternal Trauma Maternal Trauma: N/A - Assessment - Baby A Baseline FHR: 135 Heart Rate - NICHD Category: Category I (Normal) = 0 - Total Score - Baby A Total Score - Baby A: 0 - Total Score - Baby B Total Score - Baby B: 0 - Total Score - Baby C Total Score - Baby C: 0 - Level of Risk - Baby A Level of Risk - Baby A: Low (0-5) - Level of Risk - Baby B Level of Risk - Baby B: Low (0-5) - Level of Risk - Baby C Level of Risk - Baby C: Low (0-5) Physician Notification (Pre) - Physician Notified Physician Notified Date: 02/12/20 Physician Notified Time: 19:50 New Order Received: Yes - Notification Comment Comment: D/c home, reactive NST, pt feeling infant moving. Disposition - Disposition OB Disposition: Discharge to home, Written follow up instructions reviewed Discharge Date: 02/12/20 Discharge Time: 19:57 I agree with the RN Medical Screening Exam: Yes Risk & Benefit of care provided described in d/c instruction: Yes Diagnosis: DECREASED MOVEMENTS, THIRD TRIMESTER, FETUS 1
== END 2020-02-12 19:57 | disposition home or self-care (01) ==
LOC: FBPOP 19:05
PROVIDERS: ATTEND Obstetrics & Gynecology
DX: O36.8131 Decreased fetal movements, third trimester, fetus 1 (principal); Z3A.29 29 weeks gestation of pregnancy
CPT/HCPCS: 59025; G0463; 99213

== ENCOUNTER 2020-03-26 12:32 | Outpatient (CLI) | payer OTHER ==
[2020-03-26] MEDS ORDERED: LACTATED RINGERS 1,000 ML IV SCH (13:45)
[2020-03-26 13:49] LABS: Basophils % (A) 0 %; Eosinophils # (A) 0.2 k/uL (0-0.7); Eosinophils % (A) 2 %; HCT 38.4 % (34.0-46.0); HGB 12.4 gm/dL (11.4-16.0); Lymphocytes # (A) 1.8 k/uL (1.0-4.8); Lymphocytes % (A) 16 %; MCH 28.7 pg (25.0-35.0); MCHC 32.4 g/dL (31.0-37.0); MCV 88.8 fL (80.0-100.0); Mean Platelet Volume 9.4; Monocytes # (A) 0.7 k/uL (0-1.0); Monocytes % (A) 6 %; Neutrophils # (A) 8.4 k/uL (1.3-7.7); Neutrophils % (A) 75 %; Platelet Count 138 k/uL (150-450); RBC 4.33 m/uL (3.80-5.40); RDW 14.3 % (11.5-15.5); WBC 11.2 k/uL (4.0-11.0)
[2020-03-26 15:03] LABS: Amorphous Sediment,Urine Few /hpf; Appearance,Urine Turbid (Clear); Bilirubin,Urine 1+ (Negative); Blood,Urine Trace (Negative); Color,Urine Yellow; Glucose,Urine (UA) Negative (Negative); Ketones,Urine Negative (Negative); Leukocyte Esterase,Urine Negative (Negative); Mucus,Urine Occasional /hpf; Nitrite,Urine Negative (Negative); PH, Urine 7.5 (5.0-8.0); Protein,Urine Trace (Negative); RBC,Urine 3 /hpf (0-5); Specific Gravity,Urine 1.019 (1.001-1.035); Squamous Epithelial Cell,Urine <1 /hpf (0-4); WBC,Urine 3 /hpf (0-5)
[2020-03-26 16:27] VITALS: BP 137/78; PULSE 98; RESP 16; TEMP 96.2
--- NOTE | 2020-04-06 08:59 | P.MSEPDOC ---
Presenting Problems - Arrival Data Date of Arrival on Unit: 03/26/20 Time of Arrival on Unit: 12:32 Mode of Transport: Wheelchair - Complaint OB-Reason for Admission/Chief Complaint: Pain Comment: pelvic pressure and back pain Medical History - Information : 1 Para: 0 Term: 0 : 0 Abortions: Spontaneous or Elective: 0 Number of Living Children: 0 - Gestational Age Gestational Age by CORINNE (wks/days): 35 Weeks and 2 Days - History Complications: Smoker Review of Systems - Review of Systems Constitutional: No problems Breast: No problems ENT: No problems Cardiovascular: No problems Respiratory: No problems Gastrointestinal: No problems Genitourinary: No problems Musculoskeletal: No problems Neurological: No problems Skin: No problems Vital Signs - Temperature Temperature: 96.2 F Temperature Source: Temporal Artery Scan - Pulse Right Sitting Pulse Rate: 98 Pulse Assessment Method: Automatic Cuff - Respirations Respiratory Rate: 16 Oxygen Delivery Method: Room Air - Blood Pressure Right Arm Blood Pressure: 137/78 Blood Pressure Mean: 97 Blood Pressure Source: Automatic Cuff Medical Screen Scoring (Pre) - Cervical Exam Dilation: 1-3 cm = 1 Membranes: Intact - Uterine Contractions Frequency: N/A Duration: N/A Intensity: N/A - Maternal Vital Signs Maternal Temperature: N/A Maternal Blood Pressure: N/A Signs of Preeclampsia: N/A Maternal Respirations: N/A - Maternal Trauma Maternal Trauma: N/A - Assessment - Baby A Baseline FHR: 150 Heart Rate - NICHD Category: Category I (Normal) = 0 NST: Reactive Position: N/A Station: N/A - Total Score - Baby A Total Score - Baby A: 1 - Total Score - Baby B Total Score - Baby B: 1 - Total Score - Baby C Total Score - Baby C: 1 - Level of Risk - Baby A Level of Risk - Baby A: Low (0-5) - Level of Risk - Baby B Level of Risk - Baby B: Low (0-5) - Level of Risk - Baby C Level of Risk - Baby C: Low (0-5) Physician Notification (Pre) - Physician Notified Physician Notified Date: 03/26/20 Physician Notified Time: 13:15 New Order Received: Yes (iv hydration, cbc, ua) Disposition - Disposition OB Disposition: Discharge to home Discharge Date: 03/26/20 Discharge Time: 15:30 I agree with the RN Medical Screening Exam: Yes Physician's MSE Comment: Pt was seen in triage by myself as well. She did look uncomfortable at first but with IV fluids, she appeared comfortable in the bed. Her abdomen was soft, only tender in suprapubic area and low back. Minimal vaginal bleeding on pad after digital exam of cervix. category 1 tracing Risk & Benefit of care provided described in d/c instruction: Yes Risk & Benefit of Care Comment: Pt was instructed to return in pain or bleeding increased. Diagnosis: URINARY TRACT INFECTION, SITE NOT SPECIFIED
== END 2020-03-26 15:30 | disposition home or self-care (01) ==
LOC: FBPOP 12:32
PROVIDERS: ATTEND Obstetrics & Gynecology
DX: O23.43 Unspecified infection of urinary tract in pregnancy, third trimester (principal); O99.333 Smoking (tobacco) complicating pregnancy, third trimester; F17.200 Nicotine dependence, unspecified, uncomplicated; Z3A.35 35 weeks gestation of pregnancy
CPT/HCPCS: 59025; 96360; 96361; 85025; 81001; 87086; G0463; 99214

== ENCOUNTER 2020-03-26 23:49 | Inpatient (IN) | payer OTHER ==
[2020-03-27] MEDS ORDERED: LIDOCAINE 0.5% (PF) 5 MG/ML (50 ML SDV) SQ PRN (00:41)
[2020-03-27] MEDS ORDERED: TERBUTALINE 1 MG/ML VIAL SQ PRN (00:41)
[2020-03-27] MEDS ORDERED: OXYTOCIN 10 UNIT/ML 1 ML VIAL IM PRN (00:41)
[2020-03-27] MEDS ORDERED: CITRIC ACID-SODIUM CITRATE 15 ML CUP PO ONE (00:41)
[2020-03-27] MEDS ORDERED: METHYLERGONOVINE 0.2 MG/ML 1 ML AMP IM PRN (00:41)
[2020-03-27] MEDS ORDERED: CARBOPROST TROMETHAMINE 250 MCG/ML 1 ML AMP IM PRN (00:41)
[2020-03-27 01:00] LABS: Basophils % (A) 0 %; Eosinophils # (A) 0.5 k/uL (0-0.7); Eosinophils % (A) 2 %; HCT 36.5 % (34.0-46.0); HGB 11.6 gm/dL (11.4-16.0); Lymphocytes # (A) 1.6 k/uL (1.0-4.8); Lymphocytes % (A) 7 %; MCH 28.3 pg (25.0-35.0); MCHC 31.9 g/dL (31.0-37.0); MCV 88.8 fL (80.0-100.0); Mean Platelet Volume 9.9; Monocytes # (A) 0.8 k/uL (0-1.0); Monocytes % (A) 3 %; Neutrophils # (A) 20.8 k/uL (1.3-7.7); Neutrophils % (A) 88 %; Platelet Count 146 k/uL (150-450); RBC 4.11 m/uL (3.80-5.40); RDW 14.1 % (11.5-15.5); WBC 23.8 k/uL (4.0-11.0)
[2020-03-27] MEDS ORDERED: MORPHINE SULFATE (PF) 0.3 MG/0.3 ML SYR ONE (01:07)
[2020-03-27] MEDS ORDERED: ONDANSETRON 4 MG/2 ML VIAL ONE (01:07)
[2020-03-27] MEDS ORDERED: OXYTOCIN 10 UNIT/ML 1 ML VIAL ONE (01:07)
--- NOTE | 2020-03-27 01:11 | US ---
EXAMINATION TYPE: US OB limited DATE OF EXAM: 03/27/2020 COMPARISON: NONE CLINICAL HISTORY: bleeding and pain. pelvic pain and bleeding today EXAM PERFORMED: Transabdominal (TA) GESTATIONAL AGE / DATING Physician Established: (35 weeks/3 days) EDC: 04/28/20 SURVEY PLACENTA: Anterior - heterogeneous PREVIA: No Previa CATHERINE: 8.8 cm lower limits of normal CERVICAL LENGTH (transabdominal: norm > 3.0cm): 4.5 cm PRESENTATION: Vertex LIE: Longitudinal HEART RATE: 149 bpm RHYTHM: Normal IMPRESSION: Cervix is closed. Amniotic fluid is adequate. No complicating process seen.
[2020-03-27] MEDS ORDERED: ONDANSETRON 4 MG/2 ML VIAL IVP PRN (01:35)
[2020-03-27] MEDS ORDERED: NALOXONE 0.4 MG/ML 1 ML VIAL IV PRN (01:35)
[2020-03-27] MEDS ORDERED: diphenhydrAMINE 50 MG/ML 1 ML VIAL IVP PRN ×3 (01:35→01:57)
[2020-03-27] MEDS ORDERED: LANOLIN CREAM 5 GM TUBE TOPICAL PRN (01:57)
[2020-03-27] MEDS ORDERED: diphenhydrAMINE 25 MG CAP PO PRN (01:57)
[2020-03-27] MEDS ORDERED: METOCLOPRAMIDE 5 MG/ML 2 ML VIAL IVP PRN (01:57)
[2020-03-27] MEDS ORDERED: ACETAMINOPHEN TAB 325 MG TAB PO PRN (01:57)
[2020-03-27] MEDS ORDERED: ZOLPIDEM 5 MG TAB PO PRN (01:57)
[2020-03-27] MEDS ORDERED: diphenhydrAMINE 50 MG CAP PO PRN (01:57)
[2020-03-27] MEDS ORDERED: SIMETHICONE 80 MG CHEWABLE PO PRN (01:57)
[2020-03-27] MEDS ORDERED: OXYTOCIN 20 UNITS/1000 ML NS 1,000 ML IV SCH (02:00)
--- NOTE | 2020-03-27 02:18 | P.HPOB ---
History of Present Illness H&P Date: 03/27/20 Chief Complaint: vaginal bleeding and abdominal pain 19-year-old presents at 35 weeks and 1 day complaining of suprapubic pain, back pain and increased vaginal bleeding. Her cervix is once entered, 90% effaced, and -2 station. She is skyla every 2-3 minutes. heart tones 140 with minimal variability and repetitive decelerations down to 120 after contractions. This is a category 3 monitoring strip. Patient was in earlier in the day but was not having contractions, did have some suprapubic pain and back pain but her abdomen was soft and heart tones had moderate variability with a reactive NST. She called me after her pain and bleeding increased at home and instructed her to come back to the hospital. She came back to the hospital approximately 2 hours after a spoke with her. Review of Systems All systems: negative Constitutional: Denies chills, Denies fever Eyes: denies blurred vision, denies pain Ears, nose, mouth and throat: Denies headache, Denies sore throat Cardiovascular: Denies chest pain, Denies shortness of breath Respiratory: Denies cough Gastrointestinal: Denies abdominal pain, Denies diarrhea, Denies nausea, Denies vomiting Genitourinary: Denies dysuria, Denies hematuria Musculoskeletal: Denies myalgias Integumentary: Denies pruritus, Denies rash Neurological: Denies numbness, Denies weakness Psychiatric: Denies anxiety, Denies depression Endocrine: Denies fatigue, Denies weight change Past Medical History Past Medical History: No Reported History Additional Past Medical History / Comment(s): MIGRAINES, admit 12/2015 for eye infection that "spread in to my brain". Obstetric history:She has had care with Dr Hernandez. A+, abs neg, Rub Imm, RPR NR, Hep B neg. History of Any Multi-Drug Resistant Organisms: None Reported Past Surgical History: No Surgical Hx Reported Past Anesthesia/Blood Transfusion Reactions: No Reported Reaction Past Psychological History: No Psychological Hx Reported Smoking Status: Current every day smoker Past Alcohol Use History: None Reported Past Drug Use History: Marijuana Additional Drug Use History / Comment(s): pt states smokes less than half a pack a day - Past Family History Mother Family Medical History: No Reported History Medications and Allergies Home Medications Medication Instructions Recorded Confirmed Type Pnv No.95/Ferrous Fum/Folic AC 1 each PO DAILY 30 Days #30 tablet 09/05/19 03/26/20 Rx [ Multivitamin Tablet] Allergies Allergy/AdvReac Type Severity Reaction Status Date / Time polymyxin B sulfate Allergy Intermediate Rash/Hives Verified 03/26/20 13:36 [From Polytrim] trimethoprim [From Polytrim] Allergy Intermediate Rash/Hives Verified 03/26/20 13:36 Exam Osteopathic Statement: *. No significant issues noted on an osteopathic structural exam other than those noted in the History and Physical/Consult. Vital Signs Temp Pulse Resp BP 03/27/20 00:03 97.6 F 72 16 132/64 03/26/20 23:57 97.6 F 87 16 132/64 Intake and Output 03/26/20 03/26/20 03/27/20 14:59 22:59 06:59 Other: Weight 96.162 kg Heart: Regular rate and rhythm Lungs: Clear to auscultation bilaterally Abdomen: Soft, tender over the lower pelvis/uterus but soft. tender with contractions. Extremities: Negative Homans sign Results Result Diagrams: 03/27/20 00:39 Abnormal Lab Results - Last 24 Hours (Table) 03/27/20 Range/Units 00:39 WBC 23.8 H (4.0-11.0) k/uL Plt Count 146 L (150-450) k/uL Neutrophils # 20.8 H (1.3-7.7) k/uL Assessment and Plan (1) with third trimester bleeding, antepartum Current Visit: Yes Status: Acute Code(s): O46.93 - ANTEPARTUM HEMORRHAGE, UNSPECIFIED, THIRD TRIMESTER SNOMED Code(s): 845603264 (2) 35 weeks gestation of Current Visit: Yes Status: Acute Code(s): Z3A.35 - 35 WEEKS GESTATION OF SNOMED Code(s): 52143014 (3) Late deceleration of heart rate Current Visit: Yes Status: Acute Code(s): O36.8390 - MATERN CARE FOR ABNLT FETL HRT RATE OR RHYM, UNSP TRI, UNSP SNOMED Code(s): 355852722 Plan: 1. Informed consent was obtained and section was called 2. prep for
--- NOTE | 2020-03-27 02:29 | P.OP ---
Date of Procedure: 03/27/20 Preoperative Diagnosis: 1. at 35 weeks and 1 day 2. Category 3 heart tones 3. Vaginal bleeding in the third trimester Postoperative Diagnosis: 1. at 35 weeks and 1 day 2. Category 3 heart tones 3. Vaginal bleeding in the third trimester 4. Abruption of the placenta Procedure(s) Performed: Primary low transverse Anesthesia: spinal Surgeon: Alva Sparrow Weather Forcaster #1: Johana Covington Estimated Blood Loss (ml): 1,000 IV fluids (ml): 1,000 Urine output (ml): 300 Pathology: other (Placenta) Condition: stable Disposition: floor Indications for Procedure: Please see dictated H&P for indications for this procedure. Operative Findings: Viable male, Apgars pending, weight 4 pounds 8.8 ounces Description of Procedure: Patient was taken to the operating room where spinal anesthesia was found be adequate. She was prepped and draped in normal sterile fashion in dorsal supine position with a leftward tilt. Pfannenstiel skin incision was made the scalpel and carried through to the underlying layer of fascia with the scalpel. Fascia was incised in midline and carried bilaterally with the Gonsales scissors. The superior aspect of the fascial incision was grasped with Darlene clamps elevated and the underlying rectus muscles dissected off with the Gonsales's. Attention was then turned to inferior aspect of same incision which in a similar fashion was grasped tented up and the underlying rectus muscles dissected off with the Gonsales's. The rectus muscles were the midline and the peritoneum was identified tented up and entered sharply with the scalpel. The incision was extended superiorly and inferiorly with good visualization of the bladder. The bladder blade was inserted. A low transverse incision was then made on the uterus with the scalpel. This was carried bilaterally and digital manner. 's head delivered atraumatically, nose and mouth bulb suctioned, cord clamped and cut, handed off to waiting nurses. Apgars pending, weight 4 lbs. 8.8 oz. Placenta delivered manually, intact with three-vessel cord. There were several clots behind the placenta indicating the likelihood of abruption. The uterus is exteriorized and cleared of all clots and debris. The uterine incision was closed with 0 Vicryl in a running locked fashion. Second layer of the same sutures used in imbricating fashion to obtain excellent hemostasis. Both ovaries and tubes appeared normal. The uterus was placed back into the abdomen. The fascia was reapproximated using 0 Vicryl in a running fashion. The subcutaneous tissues closed with 3-0 Vicryl running fashion. The skin was closed zechariah. Patient tolerated the procedure well, sponge and instrument counts were correct times 2 and she was taken to the recovery room in stable condition.
[2020-03-27] MEDS: KETOROLAC 30 MG/ML 1 ML VIAL IVP SCH ×3 (07:54→20:37)
[2020-03-27] MEDS: LACTATED RINGERS 1,000 ML IV SCH ×6 (07:55→23:12)
[2020-03-27] MEDS: MORPHINE SULFATE 2 MG/ML SYRINGE IVP PRN ×2 (10:14→16:41)
[2020-03-27] MEDS: SENNOSIDES-DOCUSATE SODIUM 1 EACH TAB PO SCH ×2 (10:29→20:37)
[2020-03-28] MEDS: MORPHINE SULFATE 2 MG/ML SYRINGE IVP PRN (00:11)
[2020-03-28] MEDS: KETOROLAC 30 MG/ML 1 ML VIAL IVP SCH (02:33)
[2020-03-28] MEDS: LACTATED RINGERS 1,000 ML IV SCH (02:58)
[2020-03-28] MEDS: HYDROcodone/APAP 7.5-325MG 1 EACH TAB PO PRN ×3 (05:39→19:32)
[2020-03-28 05:54] LABS: Basophils % (A) 0 %; Eosinophils # (A) 0.2 k/uL (0-0.7); Eosinophils % (A) 1 %; HCT 29.3 % (34.0-46.0); Hypochromasia Slight; Lymphocytes # (A) 2.7 k/uL (1.0-4.8); Lymphocytes % (A) 23 %; MCH 29.9 pg (25.0-35.0); MCHC 33.2 g/dL (31.0-37.0); MCV 90.3 fL (80.0-100.0); Mean Platelet Volume 10.6; Monocytes # (A) 0.8 k/uL (0-1.0); Monocytes % (A) 7 %; Neutrophils # (A) 7.9 k/uL (1.3-7.7); Neutrophils % (A) 67 %; Platelet Count 104 k/uL (150-450); RBC 3.24 m/uL (3.80-5.40); RDW 14.3 % (11.5-15.5); WBC 11.8 k/uL (4.0-11.0)
[2020-03-28 06:10] LABS: HGB 9.7 gm/dL (11.4-16.0)
--- NOTE | 2020-03-28 06:51 | P.PN ---
Progress Note - Text Progress Note Date: 03/28/20 Patient doing well. Ambulating without pain or paresthesia. Denies headache or pruritis. Moderate pain treated with breakthrough medication. Back c/d A/P POD#1 s/p with duramorph -- doing well
--- NOTE | 2020-03-28 08:19 | P.PNOBGPC ---
Subjective - Subjective Principal diagnosis: S/P 1*LTCS POD #1 Interval history: Pt seen and examined. denies N/V, F,/C, CP, SOB, calf pain. Her pain is controlled and she did realize that after we had a talk about realistic expectations of pain control with po pain meds, ice packs, ets. reviewed Incentive Spirometry. Patient reports: Reports appetite normal, Reports voiding normally, Reports pain well controlled, Reports ambulating normally Objective - Vital Signs Latest vital signs: Vital Signs Temp Pulse Resp BP Pulse Ox 03/28/20 08:00 98.7 F 90 16 116/67 98 03/28/20 00:00 98.8 F 79 18 122/63 98 03/27/20 19:55 99.0 F 87 18 116/71 100 03/27/20 16:00 98.3 F 66 16 118/68 99 03/27/20 12:00 98.3 F 76 16 115/62 99 03/27/20 10:00 16 Intake and Output 03/27/20 03/28/20 03/28/20 22:59 06:59 14:59 Output Total 200 550 Balance -200 -550 Output: Urine 200 550 Straight 200 Other: # Voids 0 1 1 - Exam Lungs: bilateral: normal Chest: Normal S1, Normal S2 Extremities: Present: normal Abdomen: Present: normal appearance, soft. Absent: distention, tenderness Incision: Present: normal, dry, intact Uterus: Present: normal, firm - Labs Labs: Abnormal Lab Results - Last 24 Hours (Table) 03/28/20 Range/Units 05:34 WBC 11.8 H (4.0-11.0) k/uL RBC 3.24 L (3.80-5.40) m/uL Hgb 9.7 L D (11.4-16.0) gm/dL Hct 29.3 L (34.0-46.0) % Plt Count 104 L (150-450) k/uL Neutrophils # 7.9 H (1.3-7.7) k/uL Assessment and Plan (1) with third trimester bleeding, antepartum Current Visit: Yes Status: Resolved Code(s): O46.93 - ANTEPARTUM HEMORRHAGE, UNSPECIFIED, THIRD TRIMESTER SNOMED Code(s): 388758403 (2) 35 weeks gestation of Current Visit: Yes Status: Resolved Code(s): Z3A.35 - 35 WEEKS GESTATION OF SNOMED Code(s): 28200249 (3) Late deceleration of heart rate Current Visit: Yes Status: Resolved Code(s): O36.8390 - MATERN CARE FOR ABNLT FETL HRT RATE OR RHYM, UNSP TRI, UNSP SNOMED Code(s): 941414215 (4) Status post primary low transverse section Current Visit: Yes Status: Acute Code(s): Z98.891 - HISTORY OF UTERINE SCAR FROM PREVIOUS SURGERY SNOMED Code(s): 883989347 Plan: 1. increase ambulation 2. po pain meds 3. IS 4. reg diet
[2020-03-28] MEDS: IBUPROFEN 600 MG TAB PO PRN ×3 (09:04→22:35)
[2020-03-28] MEDS: SENNOSIDES-DOCUSATE SODIUM 1 EACH TAB PO SCH ×2 (09:04→19:32)
[2020-03-29] MEDS: HYDROcodone/APAP 7.5-325MG 1 EACH TAB PO PRN ×3 (01:40→19:37)
[2020-03-29] MEDS: SENNOSIDES-DOCUSATE SODIUM 1 EACH TAB PO SCH ×2 (08:14→19:37)
--- NOTE | 2020-03-29 08:23 | P.PNOBGPC ---
Subjective - Subjective Principal diagnosis: Postop day 2 Interval history: Patient doing very well postop day 2 from primary section. She is involuting, voiding and tolerating her diet. She voices no complaints other than incisional tenderness. She is passing flatus. Patient reports: Reports appetite normal, Reports voiding normally, Reports pain well controlled, Reports ambulating normally : in NICU Objective - Vital Signs Latest vital signs: Vital Signs Temp Pulse Resp BP Pulse Ox 03/29/20 00:00 98.3 F 83 16 125/75 97 03/28/20 15:59 98.5 F 99 16 113/59 99 Intake and Output 03/28/20 03/29/20 03/29/20 22:59 06:59 14:59 Other: # Voids 1 2 - Exam Lungs: bilateral: normal Chest: Normal S1, Normal S2 Extremities: Present: normal Abdomen: Present: normal appearance, soft. Absent: distention, tenderness Incision: Present: normal, dry, intact Uterus: Present: normal, firm
[2020-03-29] MEDS: IBUPROFEN 600 MG TAB PO PRN ×2 (13:02→22:46)
[2020-03-30] MEDS: HYDROcodone/APAP 7.5-325MG 1 EACH TAB PO PRN ×3 (01:23→22:47)
[2020-03-30] MEDS: IBUPROFEN 600 MG TAB PO PRN ×2 (04:39→16:29)
[2020-03-30] MEDS: SENNOSIDES-DOCUSATE SODIUM 1 EACH TAB PO SCH ×2 (08:00→21:54)
--- NOTE | 2020-03-30 10:09 | P.PNOBGPC ---
Subjective - Subjective Principal diagnosis: Postop day 3 Interval history: Patient doing very well this morning. Her pain is much better controlled and she is ambulating voiding without difficulty. She voices no complaints this time. Patient reports: Reports appetite normal, Reports voiding normally, Reports pain well controlled, Reports ambulating normally [place]: in NICU Objective - Vital Signs Latest vital signs: Vital Signs Temp Pulse Resp BP Pulse Ox 03/30/20 08:00 98.2 F 94 18 104/62 97 03/29/20 23:54 98.7 F 81 16 112/62 03/29/20 16:00 98.4 F 76 18 131/74 97 Intake and Output 03/29/20 03/30/20 03/30/20 22:59 06:59 14:59 Other: # Voids 2 1 2 # Bowel Movements 1 1 - Exam Lungs: bilateral: normal Chest: Normal S1, Normal S2 Extremities: Present: normal Abdomen: Present: normal appearance, soft. Absent: distention, tenderness Incision: Present: normal, dry, intact Uterus: Present: normal, firm
[2020-03-30 16:44] VITALS: RESP 16
[2020-03-31] MEDS: IBUPROFEN 600 MG TAB PO PRN ×2 (05:39→11:38)
[2020-03-31] MEDS: HYDROcodone/APAP 7.5-325MG 1 EACH TAB PO PRN ×2 (07:56→14:37)
[2020-03-31 08:15] VITALS: BP 117/66; PULSE 95; TEMP 98.4
[2020-03-31] MEDS: SENNOSIDES-DOCUSATE SODIUM 1 EACH TAB PO SCH (10:50)
== END 2020-03-31 14:45 | disposition home or self-care (01) | DRG 786 ==
LOC: 4FBP 23:49 → OBSVTOIN 03-27 06:39
PROVIDERS: ADMIT Obstetrics & Gynecology; ATTEND Obstetrics & Gynecology
PROC: 10D00Z1 Extraction of Products of Conception, Low, Open Approach (ICD-10-PCS; principal; 2020-03-27 01:02)
DX: O76 Abnormality in fetal heart rate and rhythm complicating labor and delivery (principal); O45.93 Premature separation of placenta, unspecified, third trimester; O99.334 Smoking (tobacco) complicating childbirth; F17.200 Nicotine dependence, unspecified, uncomplicated; Z3A.35 35 weeks gestation of pregnancy
CPT/HCPCS: 76815; 85025; 86850; 86900; 86901; 88307

== ENCOUNTER 2020-04-10 18:47 | Inpatient (IN) | payer OTHER ==
[2020-04-10] MEDS ORDERED: FAMOTIDINE 20 MG/2 ML VIAL IV STA (19:02)
[2020-04-10] MEDS ORDERED: SODIUM CHLORIDE 0.9% 500 ML 500 ML IV STA (19:02)
[2020-04-10] MEDS ORDERED: ONDANSETRON 4 MG/2 ML VIAL IVP STA (19:02)
[2020-04-10] MEDS ORDERED: MORPHINE SULFATE 4 MG/ML SYRINGE IVP STA (19:02)
[2020-04-10] MEDS ORDERED: SODIUM CHLORIDE 0.9% 1,000 ML IV STA (19:02)
[2020-04-10 19:28] LABS: Basophils % (A) 0 %; Eosinophils # (A) 0.3 k/uL (0-0.7); Eosinophils % (A) 3 %; HCT 37.4 % (34.0-46.0); HGB 11.7 gm/dL (11.4-16.0); Hypochromasia Slight; Lymphocytes # (A) 1.7 k/uL (1.0-4.8); Lymphocytes % (A) 17 %; MCH 27.2 pg (25.0-35.0); MCHC 31.3 g/dL (31.0-37.0); MCV 86.9 fL (80.0-100.0); Mean Platelet Volume 8.6; Monocytes # (A) 0.7 k/uL (0-1.0); Monocytes % (A) 7 %; Neutrophils # (A) 6.8 k/uL (1.3-7.7); Neutrophils % (A) 71 %; RDW 14.3 % (11.5-15.5); WBC 9.6 k/uL (4.0-11.0)
[2020-04-10 19:34] LABS: Appearance,Urine Clear (Clear); Bilirubin,Urine Negative (Negative); Blood,Urine Moderate (Negative); Color,Urine Yellow; Glucose,Urine (UA) Negative (Negative); Ketones,Urine Negative (Negative); Leukocyte Esterase,Urine Small (Negative); Nitrite,Urine Negative (Negative); Protein,Urine Negative (Negative); RBC,Urine 1 /hpf (0-5); Specific Gravity,Urine 1.001 (1.001-1.035); Squamous Epithelial Cell,Urine <1 /hpf (0-4); Urobilinogen,Urine <2.0 mg/dL (<2.0); WBC,Urine 2 /hpf (0-5)
--- NOTE | 2020-04-10 19:35 | ED ---
Abdominal Pain HPI - General Source: patient Mode of arrival: ambulatory Limitations: no limitations <Veronica Bourne - Last Filed: 04/10/20 21:40> <Jamie Linda - Last Filed: 04/10/20 21:50> - General Chief Complaint: Abdominal Pain Stated Complaint: Abd Pain Time Seen by Provider: 04/10/20 18:53 - History of Present Illness Initial Comments: 19-year-old female patient presents to the emergency department today for evaluation of midepigastric abdominal pain radiates through to her back. States that pain started for her around 3:00 this morning and has been persistent. States that she has had pain like this on and off for the last couple of months but this is worse. Patient is 2 weeks after delivering via section. She is breast-feeding. Patient thought that these symptoms over the last couple of months related to heartburn. States she has been taking Motrin for symptom relief but is not helping. States she has been nauseated but has not vomited. Denies any constipation or diarrhea. Denies any hematuria, dysuria, urinary frequency, urinary urgency. Denies any other abdominal surgeries other than the . Denies fever or chills. Patient denies any recent rash, cough, shortness of breath, chest pain, back pain, numbness, tingling, dizziness, weakness, hematuria, dysuria, urinary urgency, urinary frequency, headache, visual changes, or any other complaints. (Veronica Bourne) - Related Data Previous Rx's Medication Instructions Recorded Ibuprofen [Motrin] 600 mg PO Q6HR PRN #30 tab 03/31/20 Allergies Allergy/AdvReac Type Severity Reaction Status Date / Time polymyxin B sulfate Allergy Intermediate Rash/Hives Verified 04/10/20 21:11 [From Polytrim] trimethoprim [From Polytrim] Allergy Intermediate Rash/Hives Verified 04/10/20 21:11 Review of Systems ROS Other: All systems not noted in ROS Statement are negative. <Veronica Bourne - Last Filed: 04/10/20 21:40> ROS Other: All systems not noted in ROS Statement are negative. <Jamie Linda - Last Filed: 04/10/20 21:50> ROS Statement: Those systems with pertinent positive or pertinent negative responses have been documented in the HPI. Past Medical History Past Medical History: No Reported History Additional Past Medical History / Comment(s): MIGRAINES, admit 12/2015 for eye infection that "spread in to my brain". Obstetric history:She has had care with Dr Hernandez. A+, abs neg, Rub Imm, RPR NR, Hep B neg. History of Any Multi-Drug Resistant Organisms: None Reported Past Surgical History: No Surgical Hx Reported Past Anesthesia/Blood Transfusion Reactions: No Reported Reaction Past Psychological History: No Psychological Hx Reported Smoking Status: Current every day smoker Past Alcohol Use History: None Reported Past Drug Use History: Marijuana - Past Family History Mother Family Medical History: No Reported History <Veronica Bourne - Last Filed: 04/10/20 21:40> General Exam Limitations: no limitations General appearance: alert, in no apparent distress, other (This is a well- developed, well-nourished adult female patient in no acute distress. Vital signs upon presentation are temperature 98.7F, pulse 126, respirations 18, blood pressure 101/52, pulse ox 100% on room air.) Eye exam: Present: normal appearance, PERRL, EOMI. Absent: scleral icterus, conjunctival injection, periorbital swelling ENT exam: Present: normal exam, normal oropharynx, mucous membranes moist Respiratory exam: Present: normal lung sounds bilaterally. Absent: respiratory distress, wheezes, rales, rhonchi, stridor Cardiovascular Exam: Present: regular rate, normal rhythm, normal heart sounds. Absent: systolic murmur, diastolic murmur, rubs, gallop, clicks GI/Abdominal exam: Present: soft, tenderness (Midepigastric and right upper quadrant tenderness), normal bowel sounds, other (Positive [place] sign). Absent: distended, guarding, rebound, rigid Back exam: Present: normal inspection. Absent: CVA tenderness (R), CVA tenderness (L) Neurological exam: Present: alert, oriented X3, CN II-XII intact Psychiatric exam: Present: normal affect, normal mood Skin exam: Present: warm, dry, intact, normal color. Absent: rash <Veronica Bourne - Last Filed: 04/10/20 21:40> Course <Jamie Linda - Last Filed: 04/10/20 21:50> Vital Signs 04/10/20 18:49 Temperature 98.7 F Pulse Rate 126 H Respiratory 18 Rate Blood Pressure 101/52 O2 Sat by Pulse 100 Oximetry - Reevaluation(s) Reevaluation #1: 04/10/20 21:18 LICENSED PHARMACIST supervision: I did personally evaluate his patient does have cholecystitis with a lipase elevation she'll be admitted to medicine with GI and surgical consultation. I do agree with the assessment and plan (Jamie Linda) Reevaluation #2: 04/10/20 21:[address] Matos the patient's presence and consult (Jamie Linda) Medical Decision Making - Lab Data Result diagrams: 04/10/20 19:15 04/10/20 19:15 - Radiology Data Radiology results: report reviewed, image reviewed <Veronica Bourne - Last Filed: 04/10/20 21:40> - Lab Data Result diagrams: 04/10/20 19:15 04/10/20 19:15 <Jamie Linda - Last Filed: 04/10/20 21:50> - Medical Decision Making 19-year-old female who is two weeks post , presents to the emergency department today for evaluation of midepigastric and right upper quadrant abdominal pain radiating through to her back. Patient is also reporting nausea. Physical examination did reveal tenderness over the midepigastric and right upper quadrant regions. Labs reviewed and did reveal transaminitis with elevated lipase. Ultrasound was obtained and showed a large gallbladder, multiple gallstones consistent with possible cholecystitis. Given pancreatitis and presence of gallstones this is most likely choledocholithiasis. We will give zosyn. Consult GI and surgery. Patient is agreeable with this plan. Patient will be placed on the Labor and Delivery unit where her is currently in the special care unit. (Veronica Bourne) - Lab Data Lab Results 04/10/20 04/10/20 04/10/20 Range/Units 19:15 19:15 19:15 WBC 9.6 (4.0-11.0) k/uL RBC 4.30 (3.80-5.40) m/uL Hgb 11.7 (11.4-16.0) gm/dL Hct 37.4 (34.0-46.0) % MCV 86.9 (80.0-100.0) fL MCH 27.2 (25.0-35.0) pg MCHC 31.3 (31.0-37.0) g/dL RDW 14.3 (11.5-15.5) % Plt Count 246 D (150-450) k/uL Neutrophils % 71 % Lymphocytes % 17 % Monocytes % 7 % Eosinophils % 3 % Basophils % 0 % Neutrophils # 6.8 (1.3-7.7) k/uL Lymphocytes # 1.7 (1.0-4.8) k/uL Monocytes # 0.7 (0-1.0) k/uL Eosinophils # 0.3 (0-0.7) k/uL Basophils # 0.0 (0-0.2) k/uL Hypochromasia Slight Sodium 142 (137-145) mmol/L Potassium 3.7 (3.5-5.1) mmol/L Chloride 110 H (98-107) mmol/L Carbon Dioxide 26 (22-30) mmol/L Anion Gap 6 mmol/L BUN 7 (7-17) mg/dL Creatinine 0.71 (0.52-1.04) mg/dL Est GFR (CKD-EPI)AfAm >90 (>60 ml/min/1.73 sqM) Est GFR (CKD-EPI)NonAf >90 (>60 ml/min/1.73 sqM) Glucose 97 (74-99) mg/dL Plasma Lactic Acid [place] (0.7-2.0) mmol/L Calcium 9.3 (8.4-10.2) mg/dL Total Bilirubin 1.3 (0.2-1.3) mg/dL AST 980 H (14-36) U/L ALT 409 H (4-34) U/L Alkaline Phosphatase 356 H (38-126) U/L Total Protein 7.4 (6.3-8.2) g/dL Albumin 4.2 (3.5-5.0) g/dL Amylase 3021 H* (30-110) U/L Lipase >77761 H (23-300) U/L Urine Color Yellow Urine Appearance Clear (Clear) Urine pH 6.0 (5.0-8.0) Ur Specific [place] 1.001 (1.001-1.035) Urine Protein Negative (Negative) Urine Glucose (UA) Negative (Negative) Urine Ketones Negative (Negative) Urine Blood Moderate H (Negative) Urine Nitrite Negative (Negative) Urine Bilirubin Negative (Negative) Urine Urobilinogen <2.0 (<2.0) mg/dL Ur Leukocyte Esterase Small H (Negative) Urine RBC 1 (0-5) /hpf Urine WBC 2 (0-5) /hpf Ur Squamous Epith Cells <1 (0-4) /hpf Urine HCG, Qual (Not Detectd) 04/10/20 04/10/20 Range/Units 19:15 19:15 WBC (4.0-11.0) k/uL RBC (3.80-5.40) m/uL Hgb (11.4-16.0) gm/dL Hct (34.0-46.0) % MCV (80.0-100.0) fL MCH (25.0-35.0) pg MCHC (31.0-37.0) g/dL RDW (11.5-15.5) % Plt Count (150-450) k/uL Neutrophils % % Lymphocytes % % Monocytes % % Eosinophils % % Basophils % % Neutrophils # (1.3-7.7) k/uL Lymphocytes # (1.0-4.8) k/uL Monocytes # (0-1.0) k/uL Eosinophils # (0-0.7) k/uL Basophils # (0-0.2) k/uL Hypochromasia Sodium (137-145) mmol/L Potassium (3.5-5.1) mmol/L Chloride (98-107) mmol/L Carbon Dioxide (22-30) mmol/L Anion Gap mmol/L BUN (7-17) mg/dL Creatinine (0.52-1.04) mg/dL Est GFR (CKD-EPI)AfAm (>60 ml/min/1.73 sqM) Est GFR (CKD-EPI)NonAf (>60 ml/min/1.73 sqM) Glucose (74-99) mg/dL Plasma Lactic Acid [place] 1.0 (0.7-2.0) mmol/L Calcium (8.4-10.2) mg/dL Total Bilirubin (0.2-1.3) mg/dL AST (14-36) U/L ALT (4-34) U/L Alkaline Phosphatase (38-126) U/L Total Protein (6.3-8.2) g/dL Albumin (3.5-5.0) g/dL Amylase (30-110) U/L Lipase (23-300) U/L Urine Color Urine Appearance (Clear) Urine pH (5.0-8.0) Ur Specific [place] (1.001-1.035) Urine Protein (Negative) Urine Glucose (UA) (Negative) Urine Ketones (Negative) Urine Blood (Negative) Urine Nitrite (Negative) Urine Bilirubin (Negative) Urine Urobilinogen (<2.0) mg/dL Ur Leukocyte Esterase (Negative) Urine RBC (0-5) /hpf Urine WBC (0-5) /hpf Ur Squamous Epith Cells (0-4) /hpf Urine HCG, Qual Not Detected (Not Detectd) - Radiology Data Ultrasound of the right upper quadrant was obtained. Report is reviewed in its entirety. Impression by Dr. Pena shows numerous gallstones. Some tenderness over the gallbladder. No gallbladder wall thickening. No dilated ducts. Gallbladder is large and measures 9.2 x 3.6 cm. Cholecystitis is possible (Veronica Bourne) Disposition Decision to Admit Reason: Admit from EC Decision Date: 04/10/20 Decision Time: 21:42 <Veronica Bourne - Last Filed: 04/10/20 21:40> <Jamie Linda - Last Filed: 04/10/20 21:50> Clinical Impression: Choledocholithiasis, Pancreatitis Disposition: ADMITTED IP TO THIS [facility] Condition: Serious
[2020-04-10 19:37] LABS: ALT 409 U/L (4-34); African American GFR (CKD) >90 (>60 ml/min/1.73 sqM); Albumin 4.2 g/dL (3.5-5.0); Alkaline Phosphatase 356 U/L (38-126); Anion Gap 6 mmol/L; Blood Urea Nitrogen 7 mg/dL (7-17); Calcium 9.3 mg/dL (8.4-10.2); Carbon Dioxide 26 mmol/L (22-30); Chloride 110 mmol/L (98-107); Glucose 97 mg/dL (74-99); Non-African American GFR(CKD) >90 (>60 ml/min/1.73 sqM); Potassium 3.7 mmol/L (3.5-5.1); Sodium 142 mmol/L (137-145); Total Bilirubin 1.3 mg/dL (0.2-1.3); Total Protein 7.4 g/dL (6.3-8.2)
[2020-04-10 19:49] LABS: Platelet Count 246 k/uL (150-450)
[2020-04-10 19:51] LABS: AST 980 U/L (14-36)
[2020-04-10 20:07] LABS: Amylase 3021 U/L (30-110)
[2020-04-10] MEDS ORDERED: HYDROmorphone 1 MG/ML 1 ML SYRINGE IVP STA (20:51)
[2020-04-10] MEDS: SODIUM CHLORIDE 0.9% 1,000 ML IV SCH (21:04)
--- NOTE | 2020-04-10 21:13 | US ---
EXAMINATION TYPE: US abdomen limited DATE OF EXAM: 04/10/2020 COMPARISON: CT CLINICAL HISTORY: RUQ/midepigastric pain. RUQ/Midepigastric pain x 4 months. Pain worsened x 1 day. H x of . EXAM MEASUREMENTS: Liver Length: 18.6 cm Gallbladder Wall: 0.39 cm CBD: 0.67 cm Right Kidney: 12.6 x 5.5 x 4.4 cm. Pancreas: Partially obscured by overlying bowel gas. Liver: Measures enlarged. Gallbladder: Measures 9.2 cm in length. Multiple echogenic foci with posterior shadowing seen within the gallbladder. Wall measures upper limits of normal versus slightly thickened. Evidence for sonographic [place]'s sign: Patient did feel pain while scanning over the gallbladder. CBD: Measures upper limits of normal versus mildly dilated. Right Kidney: No hydronephrosis or masses seen. Measures minimally enlarged. IMPRESSION: There are numerous gallstones. There is some tenderness over the gallbladder. There is no gallbladder wall thickening. No dilated ducts. Gallbladder is large and measures 9.2 x 3.6 cm. Cholecystitis is possible.
[2020-04-10] MEDS ORDERED: PIPERACILLIN-TAZOBACTAM 3.375 GM in SODIUM CHLORIDE 0.9% 100 ML IVPB STA (21:15)
[2020-04-10] MEDS ORDERED: NALOXONE 0.4 MG/ML 1 ML VIAL IV PRN (21:24)
[2020-04-10] MEDS ORDERED: MORPHINE SULFATE 4 MG/ML SYRINGE IV PRN (21:24)
[2020-04-10] MEDS ORDERED: ONDANSETRON 4 MG/2 ML VIAL IVP PRN (21:42)
[2020-04-11] MEDS: HYDROmorphone 1 MG/ML 1 ML SYRINGE IVP PRN ×4 (03:37→19:33)
[2020-04-11 05:44] LABS: Basophils % (A) 0 %; Eosinophils # (A) 0.3 k/uL (0-0.7); Eosinophils % (A) 4 %; HCT 30.2 % (34.0-46.0); Hypochromasia Moderate; Lymphocytes # (A) 2.2 k/uL (1.0-4.8); Lymphocytes % (A) 31 %; MCH 27.8 pg (25.0-35.0); MCHC 31.3 g/dL (31.0-37.0); MCV 88.6 fL (80.0-100.0); Mean Platelet Volume 9.6; Monocytes # (A) 0.5 k/uL (0-1.0); Monocytes % (A) 8 %; Neutrophils % (A) 56 %; Platelet Count 236 k/uL (150-450); RBC 3.41 m/uL (3.80-5.40); RDW 14.2 % (11.5-15.5); WBC 7.2 k/uL (4.0-11.0)
[2020-04-11] MEDS: PIPERACILLIN-TAZOBACTAM 3.375 GM in SODIUM CHLORIDE 0.9% 100 ML IVPB SCH ×2 (05:47→13:50)
[2020-04-11 05:52] LABS: ALT 359 U/L (4-34); AST 483 U/L (14-36); African American GFR (CKD) >90 (>60 ml/min/1.73 sqM); Albumin 3.4 g/dL (3.5-5.0); Alkaline Phosphatase 344 U/L (38-126); Anion Gap 5 mmol/L; Blood Urea Nitrogen 7 mg/dL (7-17); Calcium 8.2 mg/dL (8.4-10.2); Carbon Dioxide 24 mmol/L (22-30); Chloride 113 mmol/L (98-107); Glucose 99 mg/dL (74-99); Non-African American GFR(CKD) >90 (>60 ml/min/1.73 sqM); Potassium 3.8 mmol/L (3.5-5.1); Sodium 142 mmol/L (137-145); Total Bilirubin 0.8 mg/dL (0.2-1.3); Total Protein 6.2 g/dL (6.3-8.2)
[2020-04-11 06:01] LABS: HGB 9.5 gm/dL (11.4-16.0)
[2020-04-11] MEDS: SODIUM CHLORIDE 0.9% 1,000 ML IV SCH ×3 (06:13→16:54)
--- NOTE | 2020-04-11 13:29 | P.GSCN ---
History of Present Illness Consult date: 04/11/20 Reason for Consult: Cholecystitis, cholelithiasis Requesting physician: Veronica Bourne History of present illness: CHIEF COMPLAINT: Abdominal pain HISTORY OF PRESENT ILLNESS: 19-year-old female who presented to emergency room with a chief complaint of abdominal pain. Patient is 2 weeks . Patient reports the pain is in the epigastric region and radiates to her back. Patient reports nausea but denies emesis. Denies fever or chills. PAST MEDICAL HISTORY: See list. PAST SURGICAL HISTORY: See list. SOCIAL HISTORY: No illicit drug use. REVIEW OF SYSTEMS: CONSTITUTIONAL: Denies fever or chills. HEENT: Denies blurred vision, vision changes, or eye pain. Denies hemoptysis CARDIOVASCULAR: Denies chest pain or pressure. RESPIRATORY: No shortness of breath. GASTROINTESTINAL: Refer to [facility] for pertinent findings HEMATOLOGIC: Denies bleeding disorders. GENITOURINARY: Denies any blood in urine. SKIN: Denies pruitis. Denies rash. PHYSICAL EXAM: VITAL SIGNS: Reviewed. GENERAL: Well-developed in no acute distress. HEENT: No sclera icterus. Extraocular movements grossly intact. Moist buccal mucosa. Head is atraumatic, normocephalic. ABDOMEN: Soft. Nondistended. Tenderness upon palpation of epigastric region. NEUROLOGIC: Alert and oriented. Cranial nerves II through XII grossly intact. LABORATORY DATA: WBC 7.2. AST 483. ALT 359. Bilirubin 0.8. Amylase 3021. Lipase greater than 20,000 on admission. Repeat 9606. IMAGING: Abdominal ultrasound: Numerous gallstones. Tenderness over the gallbladder. No clubbing thickening. No dilated ducts. Gallbladder is large and measures 9.2 x 3.6 cm. Cholecystitis is possible. ASSESSMENT: 1. Abdominal pain 2. Cholelithiasis 3. Cholecystitis 4. Pancreatitis PLAN: -NPO -Continue IV fluids -GI consulted. Await evaluation -Monitor labs -Patient to undergo lap candice today with Dr. Matos Nurse practitioner note has been reviewed by physician. Signing provider agrees with the documented findings, assessment, and plan of care. Past Medical History Past Medical History: No Reported History Additional Past Medical History / Comment(s): MIGRAINES, admit 12/2015 for eye infection that "spread in to my brain". Obstetric history:She has had care with Dr Hernandez. A+, abs neg, Rub Imm, RPR NR, Hep B neg. History of Any Multi-Drug Resistant Organisms: None Reported Past Surgical History: No Surgical Hx Reported Past Anesthesia/Blood Transfusion Reactions: No Reported Reaction Past Psychological History: No Psychological Hx Reported Smoking Status: Current every day smoker Past Alcohol Use History: None Reported Past Drug Use History: Marijuana Additional Drug Use History / Comment(s): pt states smokes less than half a pack a day - Past Family History Mother Family Medical History: No Reported History Medications and Allergies Home Medications Medication Instructions Recorded Confirmed Type Ibuprofen [Motrin] 600 mg PO Q6HR PRN #30 tab 03/31/20 04/10/20 Rx Allergies Allergy/AdvReac Type Severity Reaction Status Date / Time polymyxin B sulfate Allergy Intermediate Rash/Hives Verified 04/10/20 21:11 [From Polytrim] trimethoprim [From Polytrim] Allergy Intermediate Rash/Hives Verified 04/10/20 21:11 Surgical - Exam Vital Signs Temp Pulse Resp BP Pulse Ox 98.7 F 126 H 18 101/52 100 04/10/20 18:49 04/10/20 18:49 04/10/20 18:49 04/10/20 18:49 04/10/20 18:49 Results - Labs 04/11/20 05:19 04/11/20 05:19 Abnormal Lab Results - Last 24 Hours (Table) 04/10/20 04/10/20 04/11/20 Range/Units 19:15 19:15 05:19 RBC 3.41 L (3.80-5.40) m/uL Hgb 9.5 L D (11.4-16.0) gm/dL Hct 30.2 L (34.0-46.0) % Chloride 110 H (98-107) mmol/L Calcium (8.4-10.2) mg/dL AST 980 H (14-36) U/L ALT 409 H (4-34) U/L Alkaline Phosphatase 356 H (38-126) U/L Total Protein (6.3-8.2) g/dL Albumin (3.5-5.0) g/dL Amylase 3021 H* (30-110) U/L Lipase >76260 H (23-300) U/L Urine Blood Moderate H (Negative) Ur Leukocyte Esterase Small H (Negative) 04/11/20 Range/Units 05:19 RBC (3.80-5.40) m/uL Hgb (11.4-16.0) gm/dL Hct (34.0-46.0) % Chloride 113 H (98-107) mmol/L Calcium 8.2 L (8.4-10.2) mg/dL AST 483 H (14-36) U/L ALT 359 H (4-34) U/L Alkaline Phosphatase 344 H (38-126) U/L Total Protein 6.2 L (6.3-8.2) g/dL Albumin 3.4 L (3.5-5.0) g/dL Amylase (30-110) U/L Lipase 9606 H (23-300) U/L Urine Blood (Negative) Ur Leukocyte Esterase (Negative) Diabetes panel 04/10/20 04/11/20 Range/Units 19:15 05:19 Sodium 142 142 (137-145) mmol/L Potassium 3.7 3.8 (3.5-5.1) mmol/L Chloride 110 H 113 H (98-107) mmol/L Carbon Dioxide 26 24 (22-30) mmol/L BUN 7 7 (7-17) mg/dL Creatinine 0.71 0.78 (0.52-1.04) mg/dL Glucose 97 99 (74-99) mg/dL Calcium 9.3 8.2 L (8.4-10.2) mg/dL AST 980 H 483 H (14-36) U/L ALT 409 H 359 H (4-34) U/L Alkaline Phosphatase 356 H 344 H (38-126) U/L Total Protein 7.4 6.2 L (6.3-8.2) g/dL Albumin 4.2 3.4 L (3.5-5.0) g/dL Calcium panel 04/10/20 04/11/20 Range/Units 19:15 05:19 Calcium 9.3 8.2 L (8.4-10.2) mg/dL Albumin 4.2 3.4 L (3.5-5.0) g/dL Pituitary panel 04/10/20 04/11/20 Range/Units 19:15 05:19 Sodium 142 142 (137-145) mmol/L Potassium 3.7 3.8 (3.5-5.1) mmol/L Chloride 110 H 113 H (98-107) mmol/L Carbon Dioxide 26 24 (22-30) mmol/L BUN 7 7 (7-17) mg/dL Creatinine 0.71 0.78 (0.52-1.04) mg/dL Glucose 97 99 (74-99) mg/dL Calcium 9.3 8.2 L (8.4-10.2) mg/dL Adrenal panel 04/10/20 04/11/20 Range/Units 19:15 05:19 Sodium 142 142 (137-145) mmol/L Potassium 3.7 3.8 (3.5-5.1) mmol/L Chloride 110 H 113 H (98-107) mmol/L Carbon Dioxide 26 24 (22-30) mmol/L BUN 7 7 (7-17) mg/dL Creatinine 0.71 0.78 (0.52-1.04) mg/dL Glucose 97 99 (74-99) mg/dL Calcium 9.3 8.2 L (8.4-10.2) mg/dL Total Bilirubin 1.3 0.8 (0.2-1.3) mg/dL AST 980 H 483 H (14-36) U/L ALT 409 H 359 H (4-34) U/L Alkaline Phosphatase 356 H 344 H (38-126) U/L Total Protein 7.4 6.2 L (6.3-8.2) g/dL Albumin 4.2 3.4 L (3.5-5.0) g/dL
--- NOTE | 2020-04-11 17:51 | CONS ---
CONSULTATION DATE OF DICTATION: 04/11/2020 REASON FOR CONSULTATION: Elevated LFTs and gallstone pancreatitis. HISTORY OF PRESENT ILLNESS: The patient is a 19-year-old pleasant white female who is 2 weeks , admitted to the hospital with acute onset of severe epigastric pain about 2 nights ago. The pain is mostly in the epigastric area radiating to the right upper quadrant area and to the back associated with several episodes of nausea and vomiting. She came into the emergency room and was noted to have elevated amylase and lipase consistent with acute pancreatitis. She was also noted to have elevated serum transaminases, with an AST and ALT in the range of 600 and 900, respectively. She did have ultrasound of the gallbladder done that showed evidence of multiple gallstones but no biliary ductal dilation. PAST MEDICAL HISTORY: Unremarkable. PAST SURGICAL HISTORY: 2 weeks ago. MEDICATIONS AT HOME: Ibuprofen. ALLERGIES: SULFA. SOCIAL HISTORY: Chronic smoker. No alcohol use. FAMILY HISTORY: Mother and father are healthy. REVIEW OF SYSTEMS: CARDIOPULMONARY: No chest pain or shortness of breath. GENITOURINARY: No dysuria or hematuria. MUSCULOSKELETAL: Unremarkable. SKIN: Unremarkable. ENDOCRINE: Unremarkable. PSYCHIATRIC: Unremarkable. NEUROLOGY: Unremarkable. ENT/VISION: Unremarkable. CONSTITUTIONAL: No recent weight loss. No fever, chills, night sweats. PHYSICAL EXAMINATION: She appears comfortable. No apparent distress. Vital signs are stable. Blood pressure 130/65, pulse rate 60, temperature 98.4. HEENT examination unremarkable. Conjunctivae pink. Sclerae anicteric. Oral cavity no lesions. NECK: No JVD or lymph node enlargement. CHEST: Clear to auscultation. HEART: Regular rate and rhythm. ABDOMEN: Soft. Tenderness in the epigastric and right upper quadrant area. Rest of the abdomen benign. Bowel sounds are positive. No organomegaly. EXTREMITIES: No pedal edema. SKIN: No rashes. NEUROLOGIC: Alert and oriented x3. No focal deficits. LABS: WBC 9.6, hemoglobin 11.7, platelets normal. Basic metabolic panel is within normal limits. Amylase 3021, lipase more than 20,000. AST and ALT are 980 and 409, respectively. Alkaline phosphatase and T-bilirubin are within normal limits. Today AST is down to 483, ALT is down to 359. Lipase is down to 9606, alkaline phosphatase is 344, but T-bilirubin is 0.8. IMPRESSION: 1. Acute gallstone pancreatitis with elevated serum transaminases and elevated amylase and lipase. Ultrasound did show multiple gallstones but no biliary ductal dilation. She is noted to have elevated serum transaminases, and possibility of CBD stone is very likely, but her serum transaminases are improving, which could indicate spontaneous passage of the stone. Clinically she is improving. 2. Two weeks . RECOMMENDATIONS: 1. Symptomatic and supportive care. 2. Pain medications as needed. 3. Repeat LFTs tomorrow morning. 4. Patient is already scheduled for gallbladder surgery today by Dr. Matos. 5. If her labs continue to improve, we will hold off on the ERCP. Will follow with you closely and repeat labs tomorrow morning. Thank you for this consultation. MMODL / IJN: [id number] /
[2020-04-11] MEDS ORDERED: DEXAMETHASONE SOD PHOSPHATE 10 MG/ML 1 ML VIAL IV ONE ×2 (18:46→21:44)
[2020-04-11] MEDS ORDERED: MIDAZOLAM 2 MG/2 ML VIAL IV PRN (18:46)
[2020-04-11] MEDS ORDERED: HYDROmorphone 0.5 MG/0.5 ML SYRINGE IVP PRN (18:46)
[2020-04-11] MEDS ORDERED: SCOPOLAMINE 1.5MG/72HR PATCH TRANSDERM ONE ×2 (18:46→21:44)
[2020-04-11] MEDS ORDERED: ONDANSETRON 4 MG/2 ML VIAL IVP ONE ×2 (18:46→21:44)
[2020-04-11] MEDS ORDERED: METOCLOPRAMIDE 5 MG/ML 2 ML VIAL IVP PRN (18:46)
[2020-04-11] MEDS ORDERED: LIDOCAINE 1% (10MG/ML) FOR IV START INTRADERMA PRN (18:46)
[2020-04-11] MEDS ORDERED: LACTATED RINGERS 1,000 ML IV SCH (19:00)
[2020-04-11] MEDS ORDERED: GLYCOPYRROLATE 0.2 MG/ML 2 ML VIAL ONE (22:05)
[2020-04-11] MEDS ORDERED: KETOROLAC 30 MG/ML 1 ML VIAL ONE (22:05)
[2020-04-11] MEDS ORDERED: IV FLUID CONTINUATION 300 ML IV ONE (22:05)
[2020-04-11] MEDS ORDERED: MIDAZOLAM 2 MG/2 ML VIAL ONE (22:05)
[2020-04-11] MEDS ORDERED: NEOSTIGMINE 1 MG/ML 10 ML VIAL ONE (22:05)
[2020-04-11] MEDS ORDERED: PROPOFOL 10 MG/ML 20 ML VIAL IV ONE (22:05)
[2020-04-11] MEDS ORDERED: SUCCINYLCHOLINE CHLORIDE 100 MG/5 ML SYR IV ONE (22:05)
[2020-04-11] MEDS ORDERED: fentaNYL (PF) 50 MCG/ML 2 ML AMP ONE (22:05)
[2020-04-11] MEDS ORDERED: LIDOCAINE 1% INJ 10MG/ML (20 ML MDV) ONE (22:05)
[2020-04-11] MEDS ORDERED: ROCURONIUM BROMIDE 10 MG/ML 5 ML VIAL IV ONE (22:05)
[2020-04-11] MEDS ORDERED: BUPIVACAIN-EPI 0.25%-1:200,000 30 ML VIAL SQ ONE ×2 (22:18→22:22)
[2020-04-11] MEDS ORDERED: LACTATED RINGERS 1,000 ML IV ONE (22:25)
--- NOTE | 2020-04-11 22:39 | P.OP ---
Date of Procedure: 04/11/20 Preoperative Diagnosis: Cholecystitis Postoperative Diagnosis: Cholecystitis Procedure(s) Performed: Laparoscopic cholecystectomy Anesthesia: FLORENCE Surgeon: Wilfrid Matos Estimated Blood Loss (ml): 10 Pathology: other (Gallbladder) Condition: stable Disposition: PACU Description of Procedure: The patient was placed on the operating table. The patient received a general endotracheal tube anesthesia. The patients abdomen was prepped and draped in the usual sterile fashion. Through an infraumbilical stab incision, the fascia of the anterior abdominal wall was grasped with a pair of Kochers and then the Veress needle was placed in the peritoneal cavity. Position of the Veress needle was confirmed with positive drop test. The abdomen was then insufflated. After adequate insufflation, the 10 mm trocar was placed in the peritoneal cavity. Following this the laparoscope was placed in the peritoneal cavity. The patient was placed in the head-up, right side up position and then a 5 mm trocar was placed in the right lateral and right subcostal position under direct visualization. A 8 mm trocar was placed in the epigastric position. The gallbladder was grasped in the fundus and infundibulum. Traction on the gallbladder was placed in the lateral and the cephalad positions. The triangle of Calot was visualized.. The cystic duct was bluntly dissected until the union of the cystic duct and common bile duct was seen. A critical view of safety was achieved. The cystic duct was then divided and sealed with the Harmonic scissors. A PDS Endoloop was then placed throughout the cystic duct stump. The cystic artery divided and sealed with the Harmonic scissors. The gallbladder was then removed from the liver bed using Harmonic scissors. The gallbladder was then extracted through the epigastric port site. Operative field was checked for any bleeding spots and Harmonic scissors was used to coagulate the liver bed. The abdomen was irrigated. The trocars were removed. The skin was closed using interrupted 3-0 Vicryl suture. Dermabond dressing were applied. The patient tolerated the procedure well.
[2020-04-11 22:55] VITALS: RESP 16
--- NOTE | 2020-04-11 23:02 | P.HPIM ---
History of Present Illness H&P Date: 04/11/20 Chief Complaint: Abdominal pain Patient is a 19-year-old female with a known history of migraine headache and 2 weeks came to ER with the complaints of abdominal pain mainly in the epigastric region radiating to her back. Patient states that she has been having epigastric abdominal pain for almost 4 months and thought it is due to her heartburn. Patient has been taking Motrin for symptom relief but not helping. Last night around 3 AM patient has been having persistent pain which made her to come to ER. States she has been nauseated but has not vomited. Den ies any constipation or diarrhea. Denies any hematuria, dysuria, urinary frequency, urinary urgency. Denies any other abdominal surgeries other than the . Denies fever or chills. Patient denies any recent rash, cough, shortness of breath, chest pain, back pain, numbness, tingling, dizziness, weakness, hematuria, dysuria, urinary urgency, urinary frequency, headache, visual changes, or any other complaints. Ultrasound of the abdomen showed there are numerous gallstones. There is some tenderness of the gallbladder. There is no gallbladder wall thickening. No ductal dilatation. Gallbladder is large and measures 9.2 x 3.6 cm. Cholecystitis is possible. Laboratory data showed AST 980, ALT 409, alk phos 356, amylase 3021 and lipase level greater than 20,000. UA negative for infection. Review of Systems Constitutional: Patient denies any fever or chills . No generalized weakness or weight loss. Abdomen: Patient denied nausea vomiting and diarrhea . epigastric abdominal pain. Cardiovascular: Patient denies any chest pain or short of breath no palpitations. Respiratory: patient denied any cough is from production. No shortness of breath Neurologic: Patient denied any numbness or tingling. Patient does have dizziness and headache and ringing ears. Musculoskeletal: Patient denies any complaints of joint swelling or deformity. Skin: Negative Psychiatric: Negative Endocrine: No heat or cold intolerance. No recent weight gain. Genitourinary: No dysuria or hematuria. All other 14 point ROS negative except the above Past Medical History Past Medical History: No Reported History Additional Past Medical History / Comment(s): MIGRAINES, admit 12/2015 for eye infection that "spread in to my brain". Obstetric history:She has had care with Dr Hernandez. A+, abs neg, Rub Imm, RPR NR, Hep B neg. History of Any Multi-Drug Resistant Organisms: None Reported Past Surgical History: No Surgical Hx Reported Past Anesthesia/Blood Transfusion Reactions: No Reported Reaction Past Psychological History: No Psychological Hx Reported Smoking Status: Current every day smoker Past Alcohol Use History: None Reported Past Drug Use History: Marijuana Additional Drug Use History / Comment(s): pt states smokes less than half a pack a day - Past Family History Mother Family Medical History: No Reported History Medications and Allergies Home Medications Medication Instructions Recorded Confirmed Type Ibuprofen [Motrin] 600 mg PO Q6HR PRN #30 tab 03/31/20 04/10/20 Rx Allergies Allergy/AdvReac Type Severity Reaction Status Date / Time polymyxin B sulfate Allergy Intermediate Rash/Hives Verified 04/10/20 21:11 [From Polytrim] trimethoprim [From Polytrim] Allergy Intermediate Rash/Hives Verified 04/10/20 21:11 Physical Exam Vitals: Vital Signs Temp Pulse Pulse Resp BP BP Pulse Ox 04/11/20 11:55 98.2 F 69 16 128/82 98 04/11/20 07:43 97.4 F L 71 16 120/72 98 04/11/20 03:46 98.5 F 65 16 130/77 98 04/10/20 22:42 98.6 F 95 16 138/78 98 04/10/20 22:16 99.3 F 74 17 116/69 99 04/10/20 18:49 98.7 F 126 H 18 101/52 100 Intake and Output 04/10/20 04/11/20 04/11/20 22:59 06:59 14:59 Intake Total 200 Balance 200 Intake: Amount of Fluid Infused ( 200 ml) Other: Weight 96.162 kg PHYSICAL EXAMINATION: Patient is lying in the bed comfortably, no acute distress, awake alert and oriented.. HEENT: Normocephalic. Neck is supple. Pupils reactive. Nostrils clear. Oral cavity is moist. Ears reveal no drainage. Neck reveals no JVD, carotid bruits, or thyromegaly. CHEST EXAMINATION: Trachea is central. Symmetrical expansion. Lung sam clear to auscultation and percussion. CARDIAC: Normal S1, S2 with no gallops. No murmurs ABDOMEN: Soft. epigastric tenderness, Bowel sounds normal. No organomegaly. No abdominal bruits. Extremities: reveal no edema. No clubbing or cyanosis Neurologically awake, alert, oriented x3 with well-coordinated movements. No focal deficits noted Skin: No rash or skin lesions. Psychiatric: Coperative. Nonsuicidal Musculoskeletal: No joint swelling or deformity. Normal range of motion. Results CBC & Chem 7: 04/11/20 05:19 04/11/20 05:19 Labs: Abnormal Lab Results - Last 24 Hours (Table) 04/10/20 04/10/20 04/11/20 Range/Units 19:15 19:15 05:19 RBC 3.41 L (3.80-5.40) m/uL Hgb 9.5 L D (11.4-16.0) gm/dL Hct 30.2 L (34.0-46.0) % Chloride 110 H (98-107) mmol/L Calcium (8.4-10.2) mg/dL AST 980 H (14-36) U/L ALT 409 H (4-34) U/L Alkaline Phosphatase 356 H (38-126) U/L Total Protein (6.3-8.2) g/dL Albumin (3.5-5.0) g/dL Amylase 3021 H* (30-110) U/L Lipase >35934 H (23-300) U/L Urine Blood Moderate H (Negative) Ur Leukocyte Esterase Small H (Negative) 04/11/20 Range/Units 05:19 RBC (3.80-5.40) m/uL Hgb (11.4-16.0) gm/dL Hct (34.0-46.0) % Chloride 113 H (98-107) mmol/L Calcium 8.2 L (8.4-10.2) mg/dL AST 483 H (14-36) U/L ALT 359 H (4-34) U/L Alkaline Phosphatase 344 H (38-126) U/L Total Protein 6.2 L (6.3-8.2) g/dL Albumin 3.4 L (3.5-5.0) g/dL Amylase (30-110) U/L Lipase 9606 H (23-300) U/L Urine Blood (Negative) Ur Leukocyte Esterase (Negative) Thrombosis Risk Factor Assmnt - DVT/VTE Prophylaxis DVT/VTE Prophylaxis: Pharmacologic Prophylaxis ordered Assessment and Plan Assessment: Acute gallstone pancreatitis Possible Acute Cholecystitis Elevated AST, ALT and alk phos and amylase lipase secondary to above 2 weeks History of migraine headache Ongoing nicotine addiction History of marijuana use Plan: Patient will be continued on IV hydration and empiric antibiotics. Liver enzymes are trending down as well as lipase level. No ductal dilation noted in the ultrasound of the abdomen. Gastroenterology and general surgery is following. General surgery is planning for cholecystectomy today. Continue with pain management. Time with Patient: Greater than 30
[2020-04-12] MEDS: HYDROmorphone 1 MG/ML 1 ML SYRINGE IVP PRN ×2 (00:52→12:49)
[2020-04-12 05:48] LABS: Basophils % (A) 0 %; Eosinophils % (A) 0 %; HCT 32.6 % (34.0-46.0); HGB 10.3 gm/dL (11.4-16.0); Hypochromasia Marked; Lymphocytes # (A) 1.2 k/uL (1.0-4.8); Lymphocytes % (A) 14 %; MCHC 31.7 g/dL (31.0-37.0); MCV 88.1 fL (80.0-100.0); Monocytes # (A) 0.1 k/uL (0-1.0); Monocytes % (A) 1 %; Neutrophils # (A) 7.2 k/uL (1.3-7.7); Neutrophils % (A) 83 %; Platelet Count 236 k/uL (150-450); RDW 14.2 % (11.5-15.5); WBC 8.6 k/uL (4.0-11.0)
[2020-04-12] MEDS: PIPERACILLIN-TAZOBACTAM 3.375 GM in SODIUM CHLORIDE 0.9% 100 ML IVPB SCH ×3 (05:56→05:58)
[2020-04-12] MEDS: SODIUM CHLORIDE 0.9% 1,000 ML IV SCH (06:00)
[2020-04-12 06:02] LABS: ALT 235 U/L (4-34); AST 98 U/L (14-36); African American GFR (CKD) >90 (>60 ml/min/1.73 sqM); Albumin 3.7 g/dL (3.5-5.0); Alkaline Phosphatase 350 U/L (38-126); Anion Gap 12 mmol/L; Blood Urea Nitrogen 9 mg/dL (7-17); Carbon Dioxide 18 mmol/L (22-30); Chloride 108 mmol/L (98-107); Glucose 93 mg/dL (74-99); Non-African American GFR(CKD) >90 (>60 ml/min/1.73 sqM); Potassium 4.1 mmol/L (3.5-5.1); Sodium 138 mmol/L (137-145); Total Bilirubin 0.4 mg/dL (0.2-1.3); Total Protein 6.8 g/dL (6.3-8.2)
[2020-04-12] MEDS: KETOROLAC 30 MG/ML 1 ML VIAL IVP SCH ×2 (08:37→17:21)
[2020-04-12] MEDS ORDERED: ENOXAPARIN 40 MG/0.4 ML SYRINGE SQ SCH (09:00)
--- NOTE | 2020-04-12 11:34 | P.PN ---
Subjective Progress Note Date: 04/12/20 CHIEF COMPLAINT: Abdominal pain HISTORY OF PRESENT ILLNESS: Patient is status post laparoscopic cholecystectomy Dr. Maots. Postoperative day #1. Patient examined at the bedside with Dr. Matos. Patient states her pain is tolerable at this time. She denies nausea or vomiting. Vital signs stable. She is afebrile. Bilirubin 0.4. AST 98. ALT 235. Lipase 329. PHYSICAL EXAM: VITAL SIGNS: Reviewed. GENERAL: Well-developed in no acute distress. HEENT: No sclera icterus. Extraocular movements grossly intact. Moist buccal mucosa. Head is atraumatic, normocephalic. ABDOMEN: Soft. Nondistended. Surgical sites clean dry and intact. NEUROLOGIC: Alert and oriented. Cranial nerves II through XII grossly intact. ASSESSMENT: 1. Abdominal pain 2. Cholelithiasis 3. Cholecystitis 4. Pancreatitis PLAN: -Clear liquid diet. Advance as tolerated to regular diet -Pain control -Incentive spirometer -Activity as tolerated -Patient is stable for discharge from a surgical standpoint. We will defer to internal medicine. Patient to follow-up with Dr. Matos in one week. Nurse practitioner note has been reviewed by physician. Signing provider agrees with the documented findings, assessment, and plan of care. Objective - Vital Signs Vital signs: Vital Signs Temp 98.3 F 04/12/20 08:00 Pulse 83 04/12/20 08:00 Resp 16 04/12/20 08:00 BP 124/83 04/12/20 08:00 Pulse Ox 99 04/12/20 08:00 Intake & Output 04/11/20 04/12/20 04/12/20 18:59 06:59 18:59 Intake Total 400 Output Total 5 Balance 395 Intake: IV 400 Output: Estimated Blood Loss 5 Other: # Voids 0 - Labs CBC & Chem 7: 04/12/20 05:18 04/12/20 05:18 Labs: Abnormal Lab Results - Last 24 Hours (Table) 04/12/20 04/12/20 Range/Units 05:18 05:18 RBC 3.70 L (3.80-5.40) m/uL Hgb 10.3 L (11.4-16.0) gm/dL Hct 32.6 L (34.0-46.0) % Chloride 108 H (98-107) mmol/L Carbon Dioxide 18 L (22-30) mmol/L AST 98 H (14-36) U/L ALT 235 H (4-34) U/L Alkaline Phosphatase 350 H (38-126) U/L Lipase 329 H (23-300) U/L
[2020-04-12] MEDS ORDERED: HYDROcodone/APAP 5-325MG 1 EACH TAB PO PRN (15:07)
--- NOTE | 2020-04-12 15:22 | PN ---
PROGRESS NOTE DATE OF DICTATION: 04/12/2020 Patient is a 19-year-old female admitted to hospital with acute onset of severe epigastric and right upper quadrant abdominal pain, 2 weeks . She was diagnosed with gallstones and elevated LFTs and elevated amylase and lipase consistent with acute gallstone pancreatitis. She is feeling much better today. She underwent laparoscopic cholecystectomy by Dr. Matos yesterday. She is feeling much better. She has some epigastric discomfort. No further episodes of nausea, vomiting. On a clear liquid diet and tolerating well. PHYSICAL EXAMINATION: Appears comfortable. VITAL SIGNS: Stable, blood pressure 124/83, pulse rate 83, temperature 98.3. HEENT: Examination unremarkable, conjunctivae are pink, sclerae nonicteric, oral cavity no lesions. NECK: No JVD or lymph node enlargement. CHEST: Clear to auscultation. HEART: Regular rate and rhythm. ABDOMEN: Soft. There was mild tenderness in the epigastric area. The rest of the abdomen was benign. EXTREMITIES: No pedal edema. SKIN: No rashes. NEUROLOGIC: Alert and oriented x3. No focal deficits. LABS: From today WBC 8.6, hemoglobin 10.3, platelets normal. Basic metabolic panel is within normal limits. AST and ALT have significantly improved to 98 and 235 respectively. Alkaline phosphatase is 350. T-bilirubin is normal. Lipase is down to 329. IMPRESSION: 1. Acute gallstone pancreatitis, gradually improving. 2. Gallstones, status post laparoscopic cholecystectomy yesterday by Dr. Matos. 3. Elevated serum transaminases with AST and ALT at 409 and 90 respectively, which are significantly improved and today is 98 and 235 respectively, possibly she has passed the CBD stone spontaneously. RECOMMENDATION: 1. Continue with a clear liquid diet and advance as tolerated. 2. Symptomatic pain medications as needed. 3. Increase ambulation. 4. Repeat labs in the morning and if serum transaminases continue to trend down, will continue with the close observation and a conservative approach. No plans for any endoscopic intervention at the present time. Thank you for this consultation. MMODL / IJN: [id number] /
[2020-04-12 15:33] VITALS: BP 138/75; PULSE 82; TEMP 98.2
== END 2020-04-12 17:50 | disposition home or self-care (01) | DRG 769 ==
LOC: EC 18:47 → 4FBP 21:17
PROVIDERS: ADMIT Hospitalist; ATTEND Hospitalist
PROC: 0FT44ZZ Resection of Gallbladder, Percutaneous Endoscopic Approach (ICD-10-PCS; principal; 2020-04-11 10:25)
DX: O99.63 Diseases of the digestive system complicating the puerperium (principal); K85.10 Biliary acute pancreatitis without necrosis or infection; K80.64 Calculus of gallbladder and bile duct with chronic cholecystitis without obstruction; G43.909 Migraine, unspecified, not intractable, without status migrainosus; F17.210 Nicotine dependence, cigarettes, uncomplicated; Z11.59 Encounter for screening for other viral diseases; Z88.1 Allergy status to other antibiotic agents; Z98.891 History of uterine scar from previous surgery; Z88.2 Allergy status to sulfonamides
CPT/HCPCS: 36415; 76705; 80053; 81001; 81025; 82150; 83605; 83690; 85025; 87635; 88304; 96361; 96365; 96375; 99285

== ENCOUNTER 2020-08-08 21:44 | Emergency (ER) | payer OTHER ==
[2020-08-08] MEDS ORDERED: FLUORESCEIN STRIPS 1 MG STRIP RIGHT EYE STA (22:05)
[2020-08-08] MEDS ORDERED: PROPARACAINE 0.5% OPHTH DROPS 15 ML BTL RIGHT EYE STA (22:05)
--- NOTE | 2020-08-08 22:17 | ED ---
General Adult HPI - General Source: patient, RN notes reviewed Mode of arrival: ambulatory <Luis Antonio Gay P - Last Filed: 08/08/20 23:12> <Chantel Paula P - Last Filed: 08/08/20 23:55> - General Chief complaint: Eye Problems Stated complaint: Eye Problems Time Seen by Provider: 08/08/20 21:59 - History of Present Illness Initial comments: 20-year-old female with a past medical history of migraines, orbital cellulitis presents to the emergency room for a chief complaint of right eye pain. Patient states it is painful to move her right eye. She denies visual changes. She states it is a little bit swollen. Patient is concerned given her history of orbital cellulitis about 5 years ago for which she was treated here in this hosp ital. Patient has not had any fevers. No drainage from the eye. She has noticed some erythema. She does not wear contacts. She does were glasses but reports she hasn't worn them in a few years.Patient has no other complaints at this time including shortness of breath, chest pain, abdominal pain, nausea or vomiting, headache, or visual changes. (Luis Antonio Gay) - Related Data Previous Rx's Medication Instructions Recorded Clindamycin [Cleocin] 450 mg PO Q8H #30 cap 08/08/20 Allergies Allergy/AdvReac Type Severity Reaction Status Date / Time polymyxin B sulfate Allergy Intermediate Rash/Hives Verified 08/08/20 22:32 [From Polytrim] trimethoprim [From Polytrim] Allergy Intermediate Rash/Hives Verified 08/08/20 22:32 Review of Systems ROS Other: All systems not noted in ROS Statement are negative. <Luis Antonio Gay P - Last Filed: 08/08/20 23:12> ROS Other: All systems not noted in ROS Statement are negative. <Chantel Paula P - Last Filed: 08/08/20 23:55> ROS Statement: Those systems with pertinent positive or pertinent negative responses have been documented in the HPI. Past Medical History Past Medical History: No Reported History Additional Past Medical History / Comment(s): MIGRAINES, admit 12/2015 for eye infection that "spread in to my brain". Obstetric history:She has had care with Dr Hernandez. A+, abs neg, Rub Imm, RPR NR, Hep B neg. History of Any Multi-Drug Resistant Organisms: None Reported Past Surgical History: Section, Cholecystectomy Past Anesthesia/Blood Transfusion Reactions: No Reported Reaction Past Psychological History: No Psychological Hx Reported Smoking Status: Former smoker Past Alcohol Use History: None Reported Past Drug Use History: None Reported - Past Family History Mother Family Medical History: No Reported History <Luis Antonio Gay P - Last Filed: 08/08/20 23:12> General Exam General appearance: alert, in no apparent distress Head exam: Present: atraumatic, normocephalic, normal inspection Eye exam: Present: normal appearance, PERRL, EOMI, periorbital swelling (Minimal lateral right periorbital edema. tenderness noted ). Absent: scleral icterus, conjunctival injection, periorbital tenderness Expanded IOP (R) in mmH IOP (L) in mmH IOP measured with: Tonopen ENT exam: Present: normal exam, mucous membranes moist Neck exam: Present: normal inspection. Absent: tenderness, meningismus, lymphadenopathy Respiratory exam: Present: normal lung sounds bilaterally. Absent: respiratory distress, wheezes, rales, rhonchi, stridor Cardiovascular Exam: Present: regular rate, normal rhythm, normal heart sounds. Absent: systolic murmur, diastolic murmur, rubs, gallop, clicks GI/Abdominal exam: Present: soft, normal bowel sounds. Absent: distended, tende rness, guarding, rebound, rigid <Luis Antonio Gay P - Last Filed: 08/08/20 23:12> Course Vital Signs 08/08/20 21:50 Temperature 98.5 F Pulse Rate 111 H Respiratory 20 Rate Blood Pressure 116/87 O2 Sat by Pulse 98 Oximetry Medical Decision Making - Lab Data Result diagrams: 08/08/20 22:32 08/08/20 22:32 <Luis Antonio Gay P - Last Filed: 08/08/20 23:12> - Lab Data Result diagrams: 08/08/20 22:32 08/08/20 22:32 <Chantel Paula P - Last Filed: 08/08/20 23:55> - Medical Decision Making Patient presents for right eye pain. Patient has a history of orbital cellulitis. States that it will do this from time to time ever since she had orbital cellulitis. Patient reports that her symptoms today are not similar with her previous episode of orbital cellulitis. States her eye was much more swollen at that time. Patient denies any fevers to as she does report there is some pain with movement of the right eye and some minimal swelling. The eye was stained with fluorescein stain, no evidence of corneal abrasion. Pressures are normal. Lab work was obtained and white blood cell count is normal. CMP is unremarkable. Patient was found to be . Therefore urinalysis was obtained. CRP was ordered. It care was signed out to Dr. Paula pending this result. (Luis Antonio Gay) - Lab Data Lab Results 08/08/20 08/08/20 08/08/20 Range/Units 22:32 22:32 22:32 WBC 10.5 (3.8-10.6) k/uL RBC 4.89 (3.80-5.40) m/uL Hgb 10.8 L (11.4-16.0) gm/dL Hct 34.9 (34.0-46.0) % MCV 71.4 L (80.0-100.0) fL MCH 22.2 L (25.0-35.0) pg MCHC 31.1 (31.0-37.0) g/dL RDW 18.0 H (11.5-15.5) % Plt Count 209 (150-450) k/uL Neutrophils % 60 % Lymphocytes % 28 % Monocytes % 7 % Eosinophils % 4 % Basophils % 0 % Neutrophils # 6.2 (1.3-7.7) k/uL Lymphocytes # 2.9 (1.0-4.8) k/uL Monocytes # 0.7 (0-1.0) k/uL Eosinophils # 0.4 (0-0.7) k/uL Basophils # 0.0 (0-0.2) k/uL Hypochromasia Slight Anisocytosis Slight Microcytosis Marked Sodium 137 (137-145) mmol/L Potassium 3.6 (3.5-5.1) mmol/L Chloride 107 (98-107) mmol/L Carbon Dioxide 21 L (22-30) mmol/L Anion Gap 9 mmol/L BUN 10 (7-17) mg/dL Creatinine 0.75 (0.52-1.04) mg/dL Est GFR (CKD-EPI)AfAm >90 (>60 ml/min/1.73 sqM) Est GFR (CKD-EPI)NonAf >90 (>60 ml/min/1.73 sqM) Glucose 77 (74-99) mg/dL Plasma Lactic Acid [place] (0.7-2.0) mmol/L Calcium 9.2 (8.4-10.2) mg/dL Total Bilirubin 0.2 (0.2-1.3) mg/dL AST 27 (14-36) U/L ALT 32 (4-34) U/L Alkaline Phosphatase 60 (38-126) U/L C-Reactive Protein (<10.0) mg/L Total Protein 6.9 (6.3-8.2) g/dL Albumin 4.2 (3.5-5.0) g/dL Urine Color Urine Appearance (Clear) Urine pH (5.0-8.0) Ur Specific [place] (1.001-1.035) Urine Protein (Negative) Urine Glucose (UA) (Negative) Urine Ketones (Negative) Urine Blood (Negative) Urine Nitrite (Negative) Urine Bilirubin (Negative) Urine Urobilinogen (<2.0) mg/dL Ur Leukocyte Esterase (Negative) Urine RBC (0-5) /hpf Urine WBC (0-5) /hpf Ur Squamous Epith Cells (0-4) /hpf Urine Bacteria (None) /hpf Urine Mucus (None) /hpf Urine HCG, Qual Detected (Not Detectd) 08/08/20 08/08/20 08/08/20 Range/Units 22:32 22:32 22:32 WBC (3.8-10.6) k/uL RBC (3.80-5.40) m/uL Hgb (11.4-16.0) gm/dL Hct (34.0-46.0) % MCV (80.0-100.0) fL MCH (25.0-35.0) pg MCHC (31.0-37.0) g/dL RDW (11.5-15.5) % Plt Count (150-450) k/uL Neutrophils % % Lymphocytes % % Monocytes % % Eosinophils % % Basophils % % Neutrophils # (1.3-7.7) k/uL Lymphocytes # (1.0-4.8) k/uL Monocytes # (0-1.0) k/uL Eosinophils # (0-0.7) k/uL Basophils # (0-0.2) k/uL Hypochromasia Anisocytosis Microcytosis Sodium (137-145) mmol/L Potassium (3.5-5.1) mmol/L Chloride (98-107) mmol/L Carbon Dioxide (22-30) mmol/L Anion Gap mmol/L BUN (7-17) mg/dL Creatinine (0.52-1.04) mg/dL Est GFR (CKD-EPI)AfAm (>60 ml/min/1.73 sqM) Est GFR (CKD-EPI)NonAf (>60 ml/min/1.73 sqM) Glucose (74-99) mg/dL Plasma Lactic Acid [place] 1.3 (0.7-2.0) mmol/L Calcium (8.4-10.2) mg/dL Total Bilirubin (0.2-1.3) mg/dL AST (14-36) U/L ALT (4-34) U/L Alkaline Phosphatase (38-126) U/L C-Reactive Protein <5.0 (<10.0) mg/L Total Protein (6.3-8.2) g/dL Albumin (3.5-5.0) g/dL Urine Color Yellow Urine Appearance Turbid H (Clear) Urine pH 6.0 (5.0-8.0) Ur Specific [place] 1.023 (1.001-1.035) Urine Protein Trace H (Negative) Urine Glucose (UA) Negative (Negative) Urine Ketones Negative (Negative) Urine Blood Negative (Negative) Urine Nitrite Negative (Negative) Urine Bilirubin Negative (Negative) Urine Urobilinogen <2.0 (<2.0) mg/dL Ur Leukocyte Esterase Trace H (Negative) Urine RBC 1 (0-5) /hpf Urine WBC 2 (0-5) /hpf Ur Squamous Epith Cells 51 H (0-4) /hpf Urine Bacteria Rare H (None) /hpf Urine Mucus Rare H (None) /hpf Urine HCG, Qual (Not Detectd) Disposition <Luis Antonio Gay P - Last Filed: 08/08/20 23:12> Is patient prescribed a controlled substance at d/c from ED?: No <Chantel Paula P - Last Filed: 08/08/20 23:55> Clinical Impression: Preseptal cellulitis of right eye, Disposition: HOME SELF-CARE Condition: Stable Prescriptions: Clindamycin [Cleocin] 450 mg PO Q8H #30 cap Referrals: None,Stated [Primary Care Provider] - 1-2 days
[2020-08-08 22:46] LABS: Anisocytosis Slight; Basophils % (A) 0 %; Eosinophils # (A) 0.4 k/uL (0-0.7); Eosinophils % (A) 4 %; HCT 34.9 % (34.0-46.0); HGB 10.8 gm/dL (11.4-16.0); Hypochromasia Slight; Lymphocytes # (A) 2.9 k/uL (1.0-4.8); Lymphocytes % (A) 28 %; MCH 22.2 pg (25.0-35.0); MCHC 31.1 g/dL (31.0-37.0); MCV 71.4 fL (80.0-100.0); Mean Platelet Volume 9.1; Microcytosis Marked; Monocytes # (A) 0.7 k/uL (0-1.0); Monocytes % (A) 7 %; Neutrophils # (A) 6.2 k/uL (1.3-7.7); Neutrophils % (A) 60 %; Platelet Count 209 k/uL (150-450); RBC 4.89 m/uL (3.80-5.40); WBC 10.5 k/uL (3.8-10.6)
[2020-08-08 22:52] LABS: ALT 32 U/L (4-34); AST 27 U/L (14-36); African American GFR (CKD) >90 (>60 ml/min/1.73 sqM); Albumin 4.2 g/dL (3.5-5.0); Alkaline Phosphatase 60 U/L (38-126); Anion Gap 9 mmol/L; Blood Urea Nitrogen 10 mg/dL (7-17); Calcium 9.2 mg/dL (8.4-10.2); Carbon Dioxide 21 mmol/L (22-30); Chloride 107 mmol/L (98-107); Glucose 77 mg/dL (74-99); Non-African American GFR(CKD) >90 (>60 ml/min/1.73 sqM); Potassium 3.6 mmol/L (3.5-5.1); Sodium 137 mmol/L (137-145); Total Bilirubin 0.2 mg/dL (0.2-1.3); Total Protein 6.9 g/dL (6.3-8.2)
[2020-08-08 23:08] LABS: Appearance,Urine Turbid (Clear); Bacteria,Urine Rare /hpf; Bilirubin,Urine Negative (Negative); Blood,Urine Negative (Negative); Color,Urine Yellow; Glucose,Urine (UA) Negative (Negative); Ketones,Urine Negative (Negative); Leukocyte Esterase,Urine Trace (Negative); Mucus,Urine Rare /hpf; Nitrite,Urine Negative (Negative); Protein,Urine Trace (Negative); RBC,Urine 1 /hpf (0-5); Specific Gravity,Urine 1.023 (1.001-1.035); Squamous Epithelial Cell,Urine 51 /hpf (0-4); Urobilinogen,Urine <2.0 mg/dL (<2.0); WBC,Urine 2 /hpf (0-5)
[2020-08-08] MEDS ORDERED: CLINDAMYCIN 150 MG CAP PO STA (23:52)
[2020-08-09 00:09] VITALS: BP 140/78; PULSE 93; RESP 19; TEMP 99.1
== END 2020-08-09 00:09 | disposition home or self-care (01) ==
LOC: EC 21:44
DX: L03.213 Periorbital cellulitis (principal); Z88.1 Allergy status to other antibiotic agents; Z87.891 Personal history of nicotine dependence
CPT/HCPCS: 36415; 80053; 81001; 81025; 83605; 85025; 86140; 99283

== ENCOUNTER 2020-09-25 23:02 | Emergency (ER) | payer OTHER ==
--- NOTE | 2020-09-25 23:30 | ED ---
ENT HPI - General Chief complaint: ENT Stated complaint: Pain on RT side of head Time Seen by Provider: 09/25/20 23:12 Source: patient Mode of arrival: ambulatory Limitations: no limitations - History of Present Illness Initial comments: 20-year-old female patient presents to the emergency department today for evaluation of right-sided head pain. Patient states that couple of hours ago she started having pain and tenderness to the right scalp kind the right ear. States the area is tender to touch. States the pain is going into her ear. States she did take Tylenol which didn't help. States she has been having some intermittent dental pain but no pain today. No pain with chewing. Denies fever or chills. Eyes nausea or vomiting. Denies facial pain. Denies any recent upper respiratory infection. Denies history of frequent ear infections or diabetes. She is 10 weeks . Denies having any abdominal pain or vaginal bleeding/discharge. Patient denies any recent rash, cough, shortness of breath, chest pain, abdominal pain, nausea, vomiting, diarrhea, constipation, back pain, numbness, tingling, dizziness, weakness, hematuria, dysuria, urinary urgency, urinary frequency, headache, visual changes, or any other complaints. - Related Data Previous Rx's Medication Instructions Recorded Amoxicillin 875 mg PO Q12HR #20 tablet 09/26/20 Allergies Allergy/AdvReac Type Severity Reaction Status Date / Time polymyxin B sulfate Allergy Intermediate Rash/Hives Verified 09/25/20 23:53 [From Polytrim] trimethoprim [From Polytrim] Allergy Intermediate Rash/Hives Verified 09/25/20 23:53 Review of Systems ROS Statement: Those systems with pertinent positive or pertinent negative responses have been documented in the HPI. ROS Other: All systems not noted in ROS Statement are negative. Past Medical History Past Medical History: No Reported History Additional Past Medical History / Comment(s): MIGRAINES, admit 12/2015 for eye infection that "spread in to my brain". Obstetric history:She has had care with Dr Hernandez. A+, abs neg, Rub Imm, RPR NR, Hep B neg. History of Any Multi-Drug Resistant Organisms: None Reported Past Surgical History: Section, Cholecystectomy Past Anesthesia/Blood Transfusion Reactions: No Reported Reaction Past Psychological History: No Psychological Hx Reported Smoking Status: Current every day smoker Past Alcohol Use History: None Reported Past Drug Use History: None Reported - Past Family History Mother Family Medical History: No Reported History General Exam Limitations: no limitations General appearance: alert, in no apparent distress, other (This is a well- developed, well-nourished adult female patient in no acute distress. Vital signs upon presentation are temperature 98.9F, pulse 98, respirations 18, blood pressure 113/72, pulse ox 100% on room air) ENT exam: Present: normal exam, normal oropharynx, mucous membranes moist, TM's normal bilaterally, other (There is a right mastoid tenderness, right scalp tenderness. No skin changes or edema.) Respiratory exam: Present: normal lung sounds bilaterally. Absent: respiratory distress, wheezes, rales, rhonchi, stridor Cardiovascular Exam: Present: regular rate, normal rhythm, normal heart sounds. Absent: systolic murmur, diastolic murmur, rubs, gallop, clicks Neurological exam: Present: alert, oriented X3, CN II-XII intact Psychiatric exam: Present: normal affect, normal mood Skin exam: Present: warm, dry, intact, normal color. Absent: rash Course Vital Signs 09/25/20 09/26/20 23:08 00:17 Temperature 98.9 F 98.2 F Pulse Rate 98 71 Respiratory 18 20 Rate Blood Pressure 113/72 129/74 O2 Sat by Pulse 100 97 Oximetry Medical Decision Making - Medical Decision Making 20-year-old female patient presented to the emergency department today for evaluation of right-sided head pain especially over the postauricular area. Physical examination did reveal some mastoid tenderness. She is afebrile, vital signs. She is 10 weeks with no abdominal or vaginal complaints. Labs reviewed and did reveal mildly elevated white blood cell count consistent with . She also had normal CRP. Patient will be given amoxicillin for possible early ear infection or dental infection. She is instructed follow up with her primary care physician for recheck in 1-2 days. Return parameters discussed in detail. She verbalizes understanding and agrees with this plan. - Lab Data Result diagrams: 09/25/20 23:30 09/25/20 23:30 Lab Results 09/25/20 09/25/20 Range/Units 23:30 23:30 WBC 13.7 H (3.8-10.6) k/uL RBC 4.96 (3.80-5.40) m/uL Hgb 12.1 (11.4-16.0) gm/dL Hct 38.1 (34.0-46.0) % MCV 76.9 L D (80.0-100.0) fL MCH 24.4 L (25.0-35.0) pg MCHC 31.8 (31.0-37.0) g/dL RDW 18.7 H (11.5-15.5) % Plt Count 205 (150-450) k/uL Neutrophils % 61 % Lymphocytes % 30 % Monocytes % 5 % Eosinophils % 3 % Basophils % 0 % Neutrophils # 8.4 H (1.3-7.7) k/uL Lymphocytes # 4.1 (1.0-4.8) k/uL Monocytes # 0.7 (0-1.0) k/uL Eosinophils # 0.4 (0-0.7) k/uL Basophils # 0.0 (0-0.2) k/uL Anisocytosis Slight Microcytosis Moderate Sodium 136 L (137-145) mmol/L Potassium 3.6 (3.5-5.1) mmol/L Chloride 106 (98-107) mmol/L Carbon Dioxide 22 (22-30) mmol/L Anion Gap 8 mmol/L BUN 5 L (7-17) mg/dL Creatinine 0.56 (0.52-1.04) mg/dL Est GFR (CKD-EPI)AfAm >90 (>60 ml/min/1.73 sqM) Est GFR (CKD-EPI)NonAf >90 (>60 ml/min/1.73 sqM) Glucose 95 (74-99) mg/dL Calcium 9.7 (8.4-10.2) mg/dL Total Bilirubin 0.2 (0.2-1.3) mg/dL AST 24 (14-36) U/L ALT 27 (4-34) U/L Alkaline Phosphatase 63 (38-126) U/L C-Reactive Protein 6.5 (<10.0) mg/L Total Protein 7.8 (6.3-8.2) g/dL Albumin 4.4 (3.5-5.0) g/dL Disposition Clinical Impression: Head pain, Right ear pain Disposition: ADMITTED IP TO THIS HOSP Condition: Good Instructions (If sedation given, give patient instructions): Acute Headache (ED), Earache (ED) Additional Instructions: Take tylenol for pain control. Complete antibiotic prescription in full. follow- up with your primary care physician for recheck in 1-2 days. Return to the emergency department for any new, worsening, or concerning symptoms. Prescriptions: Amoxicillin 875 mg PO Q12HR #20 tablet Is patient prescribed a controlled substance at d/c from ED?: No Referrals: None,Stated [Primary Care Provider] - 1-2 days Time of Disposition: 00:11
[2020-09-25 23:43] LABS: Anisocytosis Slight; Basophils % (A) 0 %; Eosinophils # (A) 0.4 k/uL (0-0.7); Eosinophils % (A) 3 %; HCT 38.1 % (34.0-46.0); HGB 12.1 gm/dL (11.4-16.0); Lymphocytes # (A) 4.1 k/uL (1.0-4.8); Lymphocytes % (A) 30 %; MCH 24.4 pg (25.0-35.0); MCHC 31.8 g/dL (31.0-37.0); Microcytosis Moderate; Monocytes # (A) 0.7 k/uL (0-1.0); Monocytes % (A) 5 %; Neutrophils # (A) 8.4 k/uL (1.3-7.7); Neutrophils % (A) 61 %; Platelet Count 205 k/uL (150-450); RBC 4.96 m/uL (3.80-5.40); RDW 18.7 % (11.5-15.5); WBC 13.7 k/uL (3.8-10.6)
[2020-09-25 23:59] LABS: ALT 27 U/L (4-34); AST 24 U/L (14-36); African American GFR (CKD) >90 (>60 ml/min/1.73 sqM); Albumin 4.4 g/dL (3.5-5.0); Alkaline Phosphatase 63 U/L (38-126); Anion Gap 8 mmol/L; Blood Urea Nitrogen 5 mg/dL (7-17); C Reactive Protein 6.5 mg/L (<10.0); Calcium 9.7 mg/dL (8.4-10.2); Carbon Dioxide 22 mmol/L (22-30); Chloride 106 mmol/L (98-107); Glucose 95 mg/dL (74-99); Non-African American GFR(CKD) >90 (>60 ml/min/1.73 sqM); Potassium 3.6 mmol/L (3.5-5.1); Sodium 136 mmol/L (137-145); Total Bilirubin 0.2 mg/dL (0.2-1.3); Total Protein 7.8 g/dL (6.3-8.2)
[2020-09-26 00:06] LABS: MCV 76.9 fL (80.0-100.0)
[2020-09-26] MEDS ORDERED: AMOXICILLIN 500MG STARTER PACK 3 CAP BTL PO STA (00:11)
[2020-09-26 00:20] VITALS: BP 129/74; PULSE 71; RESP 20; TEMP 98.2
== END 2020-09-26 00:20 | disposition other institution (70) ==
LOC: EC 23:02
DX: O99.351 Diseases of the nervous system complicating pregnancy, first trimester (principal); R51.9 Headache, unspecified; H92.01 Otalgia, right ear; O99.111 Other diseases of the blood and blood-forming organs and certain disorders involving the immune mechanism complicating pregnancy, first trimester; D72.829 Elevated white blood cell count, unspecified; O99.331 Smoking (tobacco) complicating pregnancy, first trimester; F17.200 Nicotine dependence, unspecified, uncomplicated; Z88.1 Allergy status to other antibiotic agents; Z88.8 Allergy status to other drugs, medicaments and biological substances; Z3A.10 10 weeks gestation of pregnancy
CPT/HCPCS: 36415; 80053; 85025; 86140; 99284

== ENCOUNTER 2020-11-10 17:33 | Emergency (ER) | payer OTHER ==
[2020-11-10 19:25] LABS: Appearance,Urine Cloudy (Clear); Bacteria,Urine Rare /hpf; Bilirubin,Urine Negative (Negative); Blood,Urine Negative (Negative); Color,Urine Yellow; Glucose,Urine (UA) Negative (Negative); Hyaline Casts,Urine 3 /lpf (0-2); Ketones,Urine Negative (Negative); Leukocyte Esterase,Urine Small (Negative); Mucus,Urine Rare /hpf; Nitrite,Urine Negative (Negative); PH, Urine 6.5 (5.0-8.0); Protein,Urine Negative (Negative); RBC,Urine 1 /hpf (0-5); Specific Gravity,Urine 1.016 (1.001-1.035); Squamous Epithelial Cell,Urine 30 /hpf (0-4); Urobilinogen,Urine <2.0 mg/dL (<2.0); WBC,Urine 3 /hpf (0-5)
--- NOTE | 2020-11-10 20:03 | ED ---
General Adult HPI - General Chief complaint: Abdominal Pain Stated complaint: 17wks preg, bleeding/cramping Time Seen by Provider: 11/10/20 18:27 Source: patient Mode of arrival: ambulatory Limitations: no limitations - History of Present Illness Initial comments: Patient is a 20-year-old female presenting to the emergency Department with complaints of abnormal vaginal discharge 4 days. She is currently 17 weeks , no complications thus far. , SR. PRICING ANALYST is Dr. Sparrow. Patient states 4 days ago she started noticing a brownish colored discharge and some dysuria. Patient states her boyfriend was cheating on her and that the other girl had gonorrhea. Patient is concerned that she contracted an STD. Patient states she is currently high risk secondary to her first delivering at 33 weeks. Patient states she is supposed to be on pelvic rest however she has been having intercourse with her boyfriend. She denies any pain with intercourse. Patient denies any abdominal pain, she states she does get some very mild cramping over her bladder. She denies any vaginal bleeding. She denies any fever, chills, nausea or vomiting. She has any diarrhea. She has no further complaints at this time. - Related Data Previous Rx's Medication Instructions Recorded Amoxicillin 875 mg PO Q12HR #20 tablet 09/26/20 Allergies Allergy/AdvReac Type Severity Reaction Status Date / Time polymyxin B sulfate Allergy Intermediate Rash/Hives Verified 11/10/20 17:55 [From Polytrim] trimethoprim [From Polytrim] Allergy Intermediate Rash/Hives Verified 11/10/20 17:55 Review of Systems ROS Statement: Those systems with pertinent positive or pertinent negative responses have been documented in the HPI. ROS Other: All systems not noted in ROS Statement are negative. Past Medical History Past Medical History: No Reported History Additional Past Medical History / Comment(s): MIGRAINES, admit 12/2015 for eye infection that "spread in to my brain". Obstetric history:She has had care with Dr Hernandez. A+, abs neg, Rub Imm, RPR NR, Hep B neg. History of Any Multi-Drug Resistant Organisms: None Reported Past Surgical History: Section, Cholecystectomy Past Anesthesia/Blood Transfusion Reactions: No Reported Reaction Past Psychological History: No Psychological Hx Reported Smoking Status: Current every day smoker Past Alcohol Use History: None Reported Past Drug Use History: None Reported - Past Family History Mother Family Medical History: No Reported History General Exam - General Exam Comments Initial Comments: GENERAL: Patient is well-developed and well-nourished. Patient is nontoxic and in no acute distress. HEAD: Atraumatic, normocephalic. EYES: Pupils equal round and reactive to light, extraocular movements intact, sclera anicteric, conjunctiva are normal. Eyelids were unremarkable. ENT: TMs normal, nares patent, oropharynx clear without exudates. Moist mucous membranes. NECK: Normal range of motion, supple without lymphadenopathy or JVD. LUNGS: Unlabored respirations. Breath sounds clear to auscultation bilaterally and equal. No wheezes rales or rhonchi. HEART: Regular rate and rhythm without murmurs, rubs or gallops. ABDOMEN: Soft, nontender, normoactive bowel sounds. No guarding, no rebound. No masses appreciated. MUSCULOSKELETAL: Normal extremities with adequate strength and normal range of motion, no pitting or edema. No clubbing or cyanosis. NEUROLOGICAL: Patient is alert and oriented x 3. Motor and sensory are also intact. Cranial nerves II through XII grossly intact. Symmetrical smile. Normal speech, normal gait. PSYCH: Normal mood, normal affect. SKIN: Warm, Dry, normal turgor, no rashes or lesions noted. Limitations: no limitations External exam: Present: normal external exam Speculum exam: Present: vaginal discharge. Absent: vaginal bleeding, foreign body By manual exam: Present: normal by manual exam Course Vital Signs 11/10/20 11/10/20 17:51 19:45 Temperature 98.6 F 98.2 F Pulse Rate 102 H 88 Respiratory 18 16 Rate Blood Pressure 124/78 118/82 O2 Sat by Pulse 99 98 Oximetry Medical Decision Making - Medical Decision Making Patient is a 20-year-old female, currently 17 weeks , presenting with abnormal vaginal discharge 4 days. She was exposed to gonorrhea as her boyfriend was cheating on her. Patient denies any fever, no abdominal pain, some very mild lower abdominal cramping. No vaginal bleeding. heart tones were also completed and were normal at around 156 bpm. Urinalysis shows rare urine bacteria, small amount leukocyte Estrace. Trichomonas is positive. Patient will be treated for Trichomonas as well as gonorrhea and chlamydia. Those swabs are pending as well as genital culture. Patient is in agreement with this plan of care. Patient's partner needs to be treated. Patient will follow up with her SR. PRICING ANALYST. Return parameters were discussed with the patient she verbalized understanding. - Lab Data Lab Results 11/10/20 11/10/20 Range/Units 19:03 19:40 Urine Color Yellow Urine Appearance Cloudy H (Clear) Urine pH 6.5 (5.0-8.0) Ur Specific [place] 1.016 (1.001-1.035) Urine Protein Negative (Negative) Urine Glucose (UA) Negative (Negative) Urine Ketones Negative (Negative) Urine Blood Negative (Negative) Urine Nitrite Negative (Negative) Urine Bilirubin Negative (Negative) Urine Urobilinogen <2.0 (<2.0) mg/dL Ur Leukocyte Esterase Small H (Negative) Urine RBC 1 (0-5) /hpf Urine WBC 3 (0-5) /hpf Ur Squamous Epith Cells 30 H (0-4) /hpf Urine Bacteria Rare H (None) /hpf Hyaline Casts 3 H (0-2) /lpf Urine Mucus Rare H (None) /hpf Trichomonas Ag (Rapid) Positive H (Negative) Disposition Clinical Impression: Vaginal discharge, Trichomonas infection, Disposition: HOME SELF-CARE Condition: Stable Instructions (If sedation given, give patient instructions): Trichomoniasis (ED) Additional Instructions: Please return to the Emergency Department if symptoms worsen or any other concerns. Positive for Trichomonas today. You were treated for Trichomonas, gonorrhea and Chlamydia. The rest of the swabs are pending at this time. Partner needs to be treated as well. Follow-up with your SR. PRICING ANALYST. Is patient prescribed a controlled substance at d/c from ED?: No Referrals: None,Stated [Primary Care Provider] - 1-2 days
[2020-11-10 20:05] VITALS: BP 118/82; PULSE 88; RESP 16; TEMP 98.2
[2020-11-10] MEDS ORDERED: AZITHROMYCIN 250 MG TAB PO STA (20:21)
[2020-11-10] MEDS ORDERED: metroNIDAZOLE 500 MG TAB PO STA (20:21)
[2020-11-10] MEDS ORDERED: cefTRIAXone 250 MG VIAL IM STA (20:21)
== END 2020-11-10 20:50 | disposition home or self-care (01) ==
LOC: EC 17:33
DX: O98.312 Other infections with a predominantly sexual mode of transmission complicating pregnancy, second trimester (principal); A59.9 Trichomoniasis, unspecified; O99.332 Smoking (tobacco) complicating pregnancy, second trimester; Z3A.17 17 weeks gestation of pregnancy; F17.200 Nicotine dependence, unspecified, uncomplicated; Z88.1 Allergy status to other antibiotic agents; Z90.49 Acquired absence of other specified parts of digestive tract; Z98.890 Other specified postprocedural states
CPT/HCPCS: 81001; 87808; 87491; 87591; 87070; 99284; 96372; J0696

== ENCOUNTER 2021-01-18 22:45 | Outpatient (CLI) | payer OTHER ==
[2021-01-18 23:15] LABS: Appearance,Urine Cloudy (Clear); Bacteria,Urine Rare /hpf; Bilirubin,Urine Negative (Negative); Blood,Urine Negative (Negative); Color,Urine Yellow; Glucose,Urine (UA) Negative (Negative); Ketones,Urine Negative (Negative); Leukocyte Esterase,Urine Moderate (Negative); Mucus,Urine Occasional /hpf; Nitrite,Urine Negative (Negative); PH, Urine 6.5 (5.0-8.0); Protein,Urine 1+ (Negative); Squamous Epithelial Cell,Urine 43 /hpf (0-4); WBC,Urine 7 /hpf (0-5)
--- NOTE | 2021-01-18 23:31 | P.HPOB ---
History of Present Illness H&P Date: 01/18/21 Chief Complaint: Intrauterine Precis 26 weeks: Left-sided pain Patient is a 20-year-old at 27 weeks gestation who arrives having a 2 hour history of left back and flank pain radiating down towards the groin. She relates the pain started suddenly and is coming and going it is not severe at this second certainly renal lithiasis needs to be ruled out. Urine was sent to the lab but was contaminated sample. We'll plan to do straight catheter sample if renal stone appears negative. Her prior was, complicated by a abruption at 32 weeks necessitating emergency delivery. This is, complicated by a low-lying placenta but she is seeing maternal medicine and coordinating care with them. She denies bleeding or contractions there is no signs of abruption but will order ultrasound of the fetus and ultrasound kidneys to fully evaluate her current condition. She does relate that she had a bowel movement earlier today and was normal. No issues with constipation or diarrhea no blood in her stool. Category 1 tracings noted and for 26 weeks. What is reactive with 10 x 10 accelerations. Vital signs are stable and she is afebrile. Heart regular, lungs clear, extremities without pain. Abdomen is overall soft there is some mild tenderness in the left flank but no true costovertebral angle tenderness. Will await ultrasound. Past Medical History Past Medical History: No Reported History Additional Past Medical History / Comment(s): MIGRAINES, admit 12/2015 for eye infection that "spread in to my brain". Obstetric history:She has had care with Dr Hernandez. A+, abs neg, Rub Imm, RPR NR, Hep B neg. History of Any Multi-Drug Resistant Organisms: None Reported Past Surgical History: Section, Cholecystectomy Past Anesthesia/Blood Transfusion Reactions: No Reported Reaction Smoking Status: Never smoker - Past Family History Mother Family Medical History: No Reported History Medications and Allergies Allergies Allergy/AdvReac Type Severity Reaction Status Date / Time polymyxin B sulfate Allergy Intermediate Rash/Hives Verified 01/18/21 23:01 [From Polytrim] trimethoprim [From Polytrim] Allergy Intermediate Rash/Hives Verified 01/18/21 23:01 Exam Osteopathic Statement: *. No significant issues noted on an osteopathic structural exam other than those noted in the History and Physical/Consult. Intake and Output 0201/18/21 01/19/21 14:59 22:59 06:59 Other: Weight 97.069 kg Results Abnormal Lab Results - Last 24 Hours (Table) 01/18/21 Range/Units 22:50 Urine Appearance Cloudy H (Clear) Urine Protein 1+ H (Negative) Ur Leukocyte Esterase Moderate H (Negative) Urine WBC 7 H (0-5) /hpf Ur Squamous Epith Cells 43 H (0-4) /hpf Urine Bacteria Rare H (None) /hpf Urine Mucus Occasional H (None) /hpf
--- NOTE | 2021-01-19 01:20 | US ---
EXAM: US Second or Third Trimester , Transabdominal and Transvaginal CLINICAL HISTORY: ITS.REASON US Reason: abdominal pain TECHNIQUE: Real-time transabdominal and endovaginal obstetrical ultrasound of the maternal pelvis and a second or third trimester with image documentation. Endovaginal imaging was used for better evaluation of the fetus and adnexa. COMPARISON: No relevant prior studies available. FINDINGS: Fetus: Single live intrauterine . Heart rate: 150 BPM Presentation: Cephalic Placenta: Posterior placenta, inferior tip not well seen. Amniotic fluid: CATHERINE 13.4 cm Anatomy: Limited evaluation. No gross anomaly as visualized. BIOMETRICS Gestational age: 26 weeks 5 days CORINNE: 04/21/21 EFW: 1021 g BPD: 6.8 cm HC: 25.3 cm AC: 22.8 cm FL: 5 cm MATERNAL: Uterus: Unremarkable, as visualized. Cervix: The cervix measures approximately 3.5 cm in length. Free fluid: No significant free fluid. IMPRESSION: 1. Single live intrauterine measuring 26 weeks 5 days. 2. Posterior placenta, inferior tip not well seen. Recommend attention on followup to evaluate for placenta previa.
--- NOTE | 2021-01-19 01:30 | US ---
EXAM: US Retroperitoneal Limited, Renal CLINICAL HISTORY: abdominal pain TECHNIQUE: Real-time limited ultrasound of the retroperitoneum with image documentation. COMPARISON: No relevant prior studies available. FINDINGS: Right kidney: The right kidney measures 12.5 x 5.7 x 4.5 cm. No significant hydronephrosis. Left kidney: The left kidney measures 12.8 x 5.5 x 5.1 cm. No significant hydronephrosis. Bladder: Bladder jets not visualized. IMPRESSION: No significant hydronephrosis.
[2021-01-19 02:34] VITALS: BP 113/65; PULSE 97; RESP 16; TEMP 97.7
--- NOTE | 2021-01-19 07:40 | US ---
EXAMINATION TYPE: US OB TV Cervical Measurement DATE OF EXAM: 01/19/2021 COMPARISON: NONE REASON FOR EXAM: Per Ordering Physician?this transvaginal scan is to assess the CERVICAL LENGTH for i ncompetence or funneling. GESTATIONAL AGE / DATING Physician Established: (27weeks/0 days) EDC: 04/19/2021 MATERNAL/ SURVEY CERVICAL LENGTH (transvaginal: norm> 2.5cm): 3.51 cm. Ultrasound evidence of shortened cervix? No PRESENTATION: Vertex HEART RATE: 150pm RHYTHM: Normal *Images under OB Growth study. IMPRESSION: As above
== END 2021-01-19 01:59 | disposition home or self-care (01) ==
LOC: FBPOP 22:45
PROVIDERS: ATTEND Obstetrics & Gynecology
DX: O26.892 Other specified pregnancy related conditions, second trimester (principal); Z3A.26 26 weeks gestation of pregnancy; R10.32 Left lower quadrant pain
CPT/HCPCS: 81001; 76805; 76817; 76770; G0463; 99213

== ENCOUNTER 2021-01-22 02:56 | Outpatient (CLI) | payer OTHER ==
[2021-01-22 03:52] LABS: Appearance,Urine Clear (Clear); Bilirubin,Urine Negative (Negative); Blood,Urine Negative (Negative); Color,Urine Yellow; Glucose,Urine (UA) Negative (Negative); Ketones,Urine Negative (Negative); Leukocyte Esterase,Urine Negative (Negative); Nitrite,Urine Negative (Negative); PH, Urine 6.5 (5.0-8.0); Protein,Urine Negative (Negative); Urobilinogen,Urine <2.0 mg/dL (<2.0)
--- NOTE | 2021-01-22 05:32 | US ---
EXAM: US Retroperitoneal Limited, Renal CLINICAL HISTORY: ITS.REASON US Reason: Abdominal pain TECHNIQUE: Real-time limited ultrasound of the retroperitoneum with image documentation. COMPARISON: No relevant prior studies available. FINDINGS: Right Kidney: 12.0 x 5.1 x 4.8 cm Left Kidney: 12.7 x 4.8 x 4.8 cm Right Kidney: No hydronephrosis or masses seen Left Kidney: No hydronephrosis or masses seen Bladder: Within normal limits. IMPRESSION: No acute findings.
[2021-01-22 05:53] VITALS: BP 128/64; PULSE 102; RESP 16; TEMP 98.2
--- NOTE | 2021-01-26 07:37 | P.MSEPDOC ---
Presenting Problems - Arrival Data Date of Arrival on Unit: 01/22/21 Time of Arrival on Unit: 02:56 Mode of Transport: Wheelchair - Complaint OB-Reason for Admission/Chief Complaint: Pain Comment: LLQ pain that extends to LL back. Medical History - Information : 2 Para: 1 Term: 0 : 1 Abortions: Spontaneous or Elective: 0 Number of Living Children: 1 - Gestational Age Gestational Age by CORINNE (wks/days): 27 Weeks and 6 Days Review of Systems - Review of Systems Constitutional: No problems Breast: No problems ENT: No problems Cardiovascular: No problems Respiratory: No problems Gastrointestinal: No problems Genitourinary: No problems Musculoskeletal: No problems Neurological: No problems Skin: No problems Vital Signs - Temperature Temperature: 98.2 F Temperature Source: Oral - Pulse Right Brachial Pulse Rate: 102 Pulse Assessment Method: Automatic Cuff - Respirations Respiratory Rate: 16 Oxygen Delivery Method: Room Air O2 Sat by Pulse Oximetry: 98 - Blood Pressure Right Arm Blood Pressure: 128/64 Blood Pressure Mean: 85 Blood Pressure Source: Automatic Cuff Medical Screen Scoring (Pre) - Cervical Exam Dilation: Exam Deferred Effacement: Exam Deferred Membranes: Intact - Uterine Contractions Frequency: N/A Duration: N/A Intensity: N/A - Maternal Vital Signs Maternal Temperature: N/A Maternal Blood Pressure: N/A Signs of Preeclampsia: N/A Maternal Respirations: N/A - Maternal Trauma Maternal Trauma: N/A - Assessment - Baby A Baseline FHR: 135 Heart Rate - NICHD Category: Category I (Normal) = 0 NST: Reactive Position: N/A Station: N/A - Total Score - Baby A Total Score - Baby A: 0 - Total Score - Baby B Total Score - Baby B: 0 - Total Score - Baby C Total Score - Baby C: 0 - Level of Risk - Baby A Level of Risk - Baby A: Low (0-5) - Level of Risk - Baby B Level of Risk - Baby B: Low (0-5) - Level of Risk - Baby C Level of Risk - Baby C: Low (0-5) Physician Notification (Pre) - Physician Notified Physician Notified Date: 01/22/21 Physician Notified Time: 05:43 New Order Received: Yes - Notification Comment Comment: Dr. Steele called and given report on pt. Pt c/o. VS WNL. Cat 1 FHTs. No. contractions noted per monitor. Partial placenta previa. U/A results WNL. aware of. pt recent visit with lab results. Orders recieved to send urine for culture. To obtain. bilat Kidney U/S limited. Results readback to Pt rates pain 0/10. Orders to d/c to home. Disposition - Disposition OB Disposition: Discharge to home Discharge Date: 01/22/21 Discharge Time: 05:50 I agree with the RN Medical Screening Exam: Yes Case reviewed; plan agreed upon as documented in EMR&OBIX.: Yes Diagnosis: LOWER ABDOMINAL PAIN, UNSPECIFIED
== END 2021-01-22 05:50 | disposition home or self-care (01) ==
LOC: FBPOP 02:56
PROVIDERS: ATTEND Obstetrics & Gynecology
DX: O26.92 Pregnancy related conditions, unspecified, second trimester (principal); Z3A.27 27 weeks gestation of pregnancy
CPT/HCPCS: 81003; 87086; 76770; G0463; 99213

== ENCOUNTER 2021-04-09 08:46 | Inpatient (IN) | payer OTHER ==
[2021-04-09 09:36] LABS: Amorphous Sediment,Urine Occasional /hpf; Appearance,Urine Cloudy (Clear); Bacteria,Urine Rare /hpf; Bilirubin,Urine Negative (Negative); Blood,Urine Negative (Negative); Color,Urine Yellow; Glucose,Urine (UA) Negative (Negative); Ketones,Urine Trace (Negative); Leukocyte Esterase,Urine Large (Negative); Mucus,Urine Many /hpf; Nitrite,Urine Negative (Negative); PH, Urine 6.5 (5.0-8.0); Protein,Urine 1+ (Negative); RBC,Urine 2 /hpf (0-5); Specific Gravity,Urine 1.029 (1.001-1.035); Squamous Epithelial Cell,Urine 43 /hpf (0-4); WBC,Urine 6 /hpf (0-5)
[2021-04-09 10:44] LABS: Amphetamine Screen,Urine Not Detected (NotDetected); Barbiturate Screen,Urine Not Detected (NotDetected); Benzodiazepines Screen,Urine Not Detected (NotDetected); Cocaine Screen,Urine Not Detected (NotDetected); Methadone Screen, Urine Not Detected (NotDetected); Opiate Screen,Urine Not Detected (NotDetected); Oxycodone Screen, Urine Not Detected (NotDetected); Phencyclidine Screen,Urine Not Detected (NotDetected); Tricyclic Antidepressant,Urine Not Detected (NotDetected); Urn Cannabinoid Scrn Detected (NotDetected)
[2021-04-09] MEDS ORDERED: LACTATED RINGERS 1,000 ML IV ONE (12:02)
[2021-04-09] MEDS ORDERED: CITRIC ACID-SODIUM CITRATE 15 ML CUP PO ONE (12:02)
[2021-04-09] MEDS ORDERED: LACTATED RINGERS 1,000 ML IV SCH (12:15)
[2021-04-09 12:26] LABS: Anisocytosis Slight; Basophils % (A) 0 %; Eosinophils # (A) 0.2 k/uL (0-0.7); Eosinophils % (A) 1 %; Hypochromasia Slight; Lymphocytes # (A) 2.2 k/uL (1.0-4.8); Lymphocytes % (A) 17 %; MCH 23.5 pg (25.0-35.0); MCHC 32.3 g/dL (31.0-37.0); MCV 72.8 fL (80.0-100.0); Mean Platelet Volume 10.5; Microcytosis Moderate; Monocytes # (A) 0.7 k/uL (0-1.0); Monocytes % (A) 5 %; Neutrophils # (A) 9.7 k/uL (1.3-7.7); Neutrophils % (A) 76 %; Platelet Count 144 k/uL (150-450); Poikilocytosis Slight; RBC 4.67 m/uL (3.80-5.40); RDW 17.4 % (11.5-15.5); WBC 12.8 k/uL (3.8-10.6)
--- NOTE | 2021-04-09 12:45 | P.HPOB ---
History of Present Illness H&P Date: 04/09/21 Chief Complaint: Contractions, previous section This patient is a 20-year-old 2 para 1 female estimated date of confinement 04/19/2021 estimated gestational age 38-4/7 weeks gestation who presents to labor and delivery with complaints of contractions since 6:00 this morning. Patient care is complicated by history of a previous abruption and subsequent section. Patient is scheduled for repeat section. otherwise was complicated by low-lying placenta but this has resolved. Patient is now very uncomfortable thought to be in active labor. Review of Systems Genitourinary: Reports Menstruation: Reports amenorrhea Past Medical History Past Medical History: No Reported History Additional Past Medical History / Comment(s): Previous (35 weeks) for placental abruption. History of Any Multi-Drug Resistant Organisms: None Reported Past Surgical History: Section, Cholecystectomy Past Anesthesia/Blood Transfusion Reactions: No Reported Reaction Smoking Status: Never smoker Past Alcohol Use History: None Reported Past Drug Use History: Marijuana - Past Family History Mother Family Medical History: No Reported History Medications and Allergies Home Medications Medication Instructions Recorded Confirmed Type Pnv No.95/Ferrous Fum/Folic AC 1 tab PO DAILY 04/09/21 04/09/21 History [ Multivitamin Tablet] Allergies Allergy/AdvReac Type Severity Reaction Status Date / Time polymyxin B sulfate Allergy Intermediate Rash/Hives Verified 04/09/21 09:07 [From Polytrim] trimethoprim [From Polytrim] Allergy Intermediate Rash/Hives Verified 04/09/21 09:07 Exam Intake and Output 04/08/21 04/09/21 04/09/21 22:59 06:59 14:59 Other: Weight 101.151 kg - OBG Physical Exam Abdomen: bowel sounds normal, no diffuse tenderness, no bruit present, no guarding noted, no hepatomegaly, no splenomegaly, no mass Vulva: both: normal Vagina: normal moisture, no discharge Cervix: no lesion, no discharge Uterus: enlarged (Fundal height is 37 cm) Results blood work shows she is A positive, rubella immune, RPR nonreactive, hepatitis B negative, HIV is nonreactive, anatomy ultrasounds have been normal. Group B strep was negative Result Diagrams: 04/09/21 12:00 Abnormal Lab Results - Last 24 Hours (Table) 04/09/21 04/09/21 04/09/21 Range/Units 08:55 08:55 12:00 WBC 12.8 H (3.8-10.6) k/uL Hgb 11.0 L (11.4-16.0) gm/dL MCV 72.8 L (80.0-100.0) fL MCH 23.5 L (25.0-35.0) pg RDW 17.4 H (11.5-15.5) % Plt Count 144 L (150-450) k/uL Neutrophils # 9.7 H (1.3-7.7) k/uL Urine Appearance Cloudy H (Clear) Urine Protein 1+ H (Negative) Urine Ketones Trace H (Negative) Ur Leukocyte Esterase Large H (Negative) Urine WBC 6 H (0-5) /hpf Ur Squamous Epith Cells 43 H (0-4) /hpf Amorphous Sediment Occasional H (None) /hpf Urine Bacteria Rare H (None) /hpf Urine Mucus Many H (None) /hpf U Marijuana (THC) Screen Detected H (NotDetected) Assessment and Plan Assessment: This is a 20-year-old 1 para 0 female 38-4/7 weeks gestation admitted to labor and delivery in active labor and previous section. Plan is repeat low transverse section. Of note the patient did have a positive marijuana screen on admission. (1) 38 weeks gestation of Current Visit: Yes Status: Acute Code(s): Z3A.38 - 38 WEEKS GESTATION OF SNOMED Code(s): 07252901 (2) Previous delivery affecting Current Visit: Yes Status: Acute Code(s): O34.219 - MATERNAL CARE FOR UNSP TYPE SCAR FROM PREVIOUS DEL SNOMED Code(s): 250279799 (3) Substance abuse affecting in third trimester, antepartum Current Visit: Yes Status: Acute Code(s): O99.323 - DRUG USE COMPLICATING , THIRD TRIMESTER SNOMED Code(s): 57617380
[2021-04-09] MEDS ORDERED: KETOROLAC 15 MG/ML 1 ML VIAL ONE (13:25)
[2021-04-09] MEDS ORDERED: OXYTOCIN 10 UNIT/ML 1 ML VIAL ONE (13:25)
[2021-04-09] MEDS ORDERED: ONDANSETRON 4 MG/2 ML VIAL ONE (13:25)
[2021-04-09] MEDS ORDERED: MORPHINE SULFATE (PF) 0.3 MG/0.3 ML SYR ONE (13:25)
[2021-04-09] MEDS ORDERED: diphenhydrAMINE 25 MG CAP PO PRN (14:24)
[2021-04-09] MEDS ORDERED: SIMETHICONE 80 MG CHEWABLE PO PRN (14:24)
[2021-04-09] MEDS ORDERED: METOCLOPRAMIDE 5 MG/ML 2 ML VIAL IVP PRN (14:24)
[2021-04-09] MEDS ORDERED: LANOLIN CREAM 5 GM TUBE TOPICAL PRN (14:24)
[2021-04-09] MEDS ORDERED: KETOROLAC 15 MG/ML 1 ML VIAL IVP PRN (14:24)
[2021-04-09] MEDS ORDERED: NALOXONE 0.4 MG/ML 1 ML VIAL IV PRN (14:24)
[2021-04-09] MEDS ORDERED: OXYTOCIN 30 UNITS/500 ML NS 30 UNIT in SALINE 1 500ML.BAG IV SCH (14:24)
[2021-04-09] MEDS ORDERED: diphenhydrAMINE 50 MG/ML 1 ML VIAL IVP PRN (14:24)
[2021-04-09] MEDS ORDERED: ONDANSETRON 4 MG/2 ML VIAL IVP PRN (14:24)
[2021-04-09] MEDS ORDERED: ZOLPIDEM 5 MG TAB PO PRN (14:24)
--- NOTE | 2021-04-09 14:41 | P.OP ---
Date of Procedure: 04/09/21 Preoperative Diagnosis: #1: 39-3/7 week intrauterine . #2: Previous section desires repeat. #3: Active labor Postoperative Diagnosis: Same Procedure(s) Performed: Repeat low transverse section Anesthesia: spinal Surgeon: Obinna Krause Civil Engineering Teacher #1: Yolanda Steele Estimated Blood Loss (ml): 600 Pathology: other (Placenta) Condition: stable Disposition: floor Indications for Procedure: Please see dictated H&P for intimate details of this patient's admission. Brief summary this is a 20-year-old 2 para 1 female 39-3/7 weeks gestation admitted to labor and delivery in active labor. Patient's had a previous section desires repeat. Patient does understand the surgery and risks and risks of infection, bleeding, possible injury to bowel, bladder, vessels, and/or other organs. All the patient's questions are answered and a written consent is obtained. Operative Findings: This is a viable male Apgars are 9 and 9 delivery time was 1352 hrs. Nuchal cord 2. Description of Procedure: This patient has a Fry catheter placed to straight drain. She is subsequent taken to the operating room where she sat up and spinal anesthetic is administered without incident. With an adequate level of anesthesia, she is placed in the supine position. She subsequent has abdominal prep and drape. Scalpels and taken the previous Pfannenstiel incision is incised. A second scalpel is taken down the fascia the fascia scored with a knife. Fascial incision extended bilaterally using the Gonsales scissors. Thus is then dissected off the rectus muscles. Rectus muscles are the peritoneum was identified and entered sharply. Of note there is some omental adhesions over on the right lower side. Bladder blade is then placed. Bladder peritoneum was taken off the lower uterine segment sharply. Scalpels and taken low transverse uterine incision is then made. This done the hemostat is used to enter the uterine cavity bluntly and there is loss of clear fluid. Incision is extended bilaterally. Infant's head is then guided through the incision and with gentle fundal pressure delivered. Mouth and nares are bulb suctioned. Is a nuchal cord 2 which is reduced. We then with fundal pressure deliver the rest this infant's body. This is a vigorous viable male infant Apgars are 9 and 9 delivery time is 1352 hrs. After delivery of the infant the umbilical cord is doubly clamped and cut appears to be trivascular. Placenta is then manually extracted intact. Uterus is then externalized and uterine incision demarcated with Still clamps. Uterine incision closed in 0 Vicryl running locked fashion 2 layers. Excellent hemostasis is noted. Excess fluid is removed from the abdomen and pelvis. The uterus, tubes, and ovaries, appear normal for term gestation. The parietal peritoneum was then identified and closed using 0 Vicryl running fashion. There are still some dense adhesions to lower peritoneum which are left alone. The rectus muscles are reapproximated using 0 Vicryl interrupted fashion. Fascia is then closed using 0 PDS. Fascial incision is intact and hemostatic. Subcutaneous tissues and closed using a 3-0 Vicryl. Skin is then closed using zechariah. Sterile dressing is then applied. All counts are correct 3. There are no complications. and mother are stable in the operating room and taken to the birthing suite in satisfactory condition.
[2021-04-09] MEDS: ACETAMINOPHEN TAB 500 MG TAB PO SCH (18:35)
[2021-04-09] MEDS: LACTATED RINGERS 1,000 ML IV SCH ×2 (19:57→23:15)
[2021-04-09] MEDS: IBUPROFEN 600 MG TAB PO SCH (23:14)
[2021-04-09] MEDS: SENNOSIDES-DOCUSATE SODIUM 1 EACH TAB PO SCH (23:15)
[2021-04-10] MEDS: ACETAMINOPHEN TAB 500 MG TAB PO SCH ×6 (01:09→20:08)
[2021-04-10] MEDS: IBUPROFEN 600 MG TAB PO SCH ×5 (04:14→19:49)
[2021-04-10 07:24] LABS: Anisocytosis Slight; Basophils % (A) 0 %; Eosinophils # (A) 0.2 k/uL (0-0.7); Eosinophils % (A) 1 %; HCT 31.5 % (34.0-46.0); Hypochromasia Marked; Lymphocytes # (A) 3.2 k/uL (1.0-4.8); Lymphocytes % (A) 24 %; MCH 23.4 pg (25.0-35.0); MCHC 31.7 g/dL (31.0-37.0); MCV 73.8 fL (80.0-100.0); Mean Platelet Volume 10.5; Microcytosis Moderate; Monocytes # (A) 1.1 k/uL (0-1.0); Monocytes % (A) 8 %; Neutrophils # (A) 8.7 k/uL (1.3-7.7); Neutrophils % (A) 65 %; Platelet Count 121 k/uL (150-450); Poikilocytosis Slight; RBC 4.27 m/uL (3.80-5.40); RDW 17.4 % (11.5-15.5); WBC 13.4 k/uL (3.8-10.6)
[2021-04-10] MEDS: SENNOSIDES-DOCUSATE SODIUM 1 EACH TAB PO SCH ×2 (07:33→20:08)
--- NOTE | 2021-04-10 09:23 | P.PN ---
Progress Note - Text Date: Time:703am 04/10/21 Patient is status post . Patient seen this morning with VAS score of 6. c/o of pruritus, c/o nausea/vomiting, comfortable and doing better today
[2021-04-11] MEDS: IBUPROFEN 600 MG TAB PO SCH ×2 (00:20→06:54)
[2021-04-11] MEDS: ACETAMINOPHEN TAB 500 MG TAB PO SCH ×3 (02:10→11:41)
[2021-04-11] MEDS: SENNOSIDES-DOCUSATE SODIUM 1 EACH TAB PO SCH (08:05)
[2021-04-11 08:49] VITALS: BP 116/72; PULSE 76; RESP 16; TEMP 98.3
--- NOTE | 2021-04-11 08:49 | P.DS ---
Providers Date of admission: 04/09/21 11:27 Expected date of discharge: 04/11/21 Attending physician: Alva Sparrow Primary care physician: Stated None - Discharge Diagnosis(es) (1) Status post repeat low transverse section Current Visit: Yes Status: Acute Hospital Course: Pt presented in active labor. She underwent a repeat low transverse . Post operative course was uncomplicated. Denies N/V, F/C, CP, SOB or calf pain. Kim reg diet, passing flatus and ambulating and voiding normally. Incision is C/D/I . She will be discharged home POD #2 in stable condition to follow up with me in one week. Plan - Discharge Summary New Discharge Prescriptions: New oxyCODONE HCL [OxyIR] 5 mg PO Q4HR PRN #20 tab PRN Reason: Pain Scale 4 - 6 Ibuprofen [Motrin] 600 mg PO Q6H #40 tab No Action Pnv No.95/Ferrous Fum/Folic AC [ Multivitamin Tablet] 1 tab PO DAILY Discharge Medication List Pnv No.95/Ferrous Fum/Folic AC [ Multivitamin Tablet] 1 tab PO DAILY 04/09/21 [History] Ibuprofen [Motrin] 600 mg PO Q6H #40 tab 04/11/21 [Rx] oxyCODONE HCL [OxyIR] 5 mg PO Q4HR PRN #20 tab 04/11/21 [Rx] Follow up Appointment(s)/Referral(s): Alva Sparrow DO [Doctor of Osteopathic Medicine] - 1 Week Discharge Disposition: HOME SELF-CARE
--- NOTE | 2021-04-11 11:16 | P.PNOBGPC ---
Subjective - Subjective Principal diagnosis: s/P RLTCS POD #1 Interval history: Pt seen and examined. Denies N/V, F/C, CP, SOB, calf pain. not voiding yet Patient reports: Reports appetite normal, Reports pain well controlled, Reports ambulating normally : doing well Objective - Vital Signs Latest vital signs: Vital Signs Temp Pulse Resp BP Pulse Ox 04/11/21 08:15 98.3 F 76 16 116/72 100 04/11/21 00:00 98.4 F 67 18 118/63 98 04/10/21 15:49 98.4 F 68 16 109/72 04/10/21 12:00 98.3 F 74 16 105/65 - Exam Lungs: bilateral: normal Chest: Normal S1, Normal S2 Extremities: Present: normal Abdomen: Present: normal appearance, soft. Absent: distention, tenderness Incision: Present: normal, dry, intact Uterus: Present: normal, firm - Labs Labs: Microbiology - Last 24 Hours (Table) 04/09/21 08:55 Urine Culture - Final Urine,Clean Catch Assessment and Plan (1) Status post repeat low transverse section Current Visit: Yes Status: Acute Code(s): Z98.891 - HISTORY OF UTERINE SCAR FROM PREVIOUS SURGERY SNOMED Code(s): 246389707 Plan: 1. cont po care
== END 2021-04-11 11:50 | disposition home or self-care (01) | DRG 788 ==
LOC: FBPOP 08:46 → 4FBP 11:27
PROVIDERS: ADMIT Obstetrics & Gynecology; ATTEND Obstetrics & Gynecology
PROC: 10D00Z1 Extraction of Products of Conception, Low, Open Approach (ICD-10-PCS; principal; 2021-04-09 13:00)
DX: O34.211 Maternal care for low transverse scar from previous cesarean delivery (principal); L29.9 Pruritus, unspecified; O69.81X0 Labor and delivery complicated by cord around neck, without compression, not applicable or unspecified; Z37.0 Single live birth; Z3A.38 38 weeks gestation of pregnancy
CPT/HCPCS: 59025; 80306; 81001; 85025; 86850; 86900; 86901; 87086; 88307; 99213

== ENCOUNTER 2021-06-13 00:18 | Emergency (ER) | payer OTHER ==
[2021-06-13 00:22] VITALS: RESP 16; TEMP 98.3
[2021-06-13 01:00] LABS: Appearance,Urine Cloudy (Clear); Bacteria,Urine Occasional /hpf; Bilirubin,Urine Negative (Negative); Blood,Urine Moderate (Negative); Color,Urine Light Yellow; Glucose,Urine (UA) Negative (Negative); Ketones,Urine Negative (Negative); Leukocyte Esterase,Urine Large (Negative); Mucus,Urine Rare /hpf; Nitrite,Urine Negative (Negative); Protein,Urine 1+ (Negative); RBC,Urine 41 /hpf (0-5); Specific Gravity,Urine 1.009 (1.001-1.035); Squamous Epithelial Cell,Urine 2 /hpf (0-4); Urobilinogen,Urine <2.0 mg/dL (<2.0); WBC,Urine 64 /hpf (0-5)
[2021-06-13] MEDS ORDERED: MORPHINE SULFATE 4 MG/ML SYRINGE IV STA (01:04)
[2021-06-13 01:08] LABS: Anisocytosis Slight; Basophils % (A) 0 %; Eosinophils # (A) 0.3 k/uL (0-0.7); Eosinophils % (A) 3 %; HCT 32.8 % (34.0-46.0); Lymphocytes # (A) 2.8 k/uL (1.0-4.8); Lymphocytes % (A) 28 %; MCH 24.7 pg (25.0-35.0); MCHC 33.7 g/dL (31.0-37.0); MCV 73.4 fL (80.0-100.0); Mean Platelet Volume 9.2; Microcytosis Moderate; Monocytes # (A) 0.7 k/uL (0-1.0); Monocytes % (A) 7 %; Neutrophils # (A) 6.2 k/uL (1.3-7.7); Neutrophils % (A) 61 %; Platelet Count 176 k/uL (150-450); RBC 4.46 m/uL (3.80-5.40); WBC 10.3 k/uL (3.8-10.6)
--- NOTE | 2021-06-13 01:24 | ED ---
Abdominal Pain HPI - General Chief Complaint: Abdominal Pain Stated Complaint: Lt Flank Pain Time Seen by Provider: 06/13/21 00:29 Source: patient Mode of arrival: ambulatory Limitations: no limitations - History of Present Illness MD Complaint: flank pain Onset/Timin -: hour(s) Location: L flank Radiation: none Migration to: no migration Severity: moderate Quality: cramping, aching Consistency: constant Improves With: nothing Worsens With: nothing Associated Symptoms: denies other symptoms - Related Data Home Medications Medication Instructions Recorded Confirmed Pnv No.95/Ferrous Fum/Folic AC 1 tab PO DAILY 04/09/21 04/09/21 [ Multivitamin Tablet] Previous Rx's Medication Instructions Recorded Ibuprofen [Motrin] 600 mg PO Q6H #40 tab 04/11/21 oxyCODONE HCL [OxyIR] 5 mg PO Q4HR PRN #20 tab 04/11/21 Cephalexin [Keflex] 500 mg PO Q6HR #28 cap 06/13/21 Allergies Allergy/AdvReac Type Severity Reaction Status Date / Time polymyxin B sulfate Allergy Intermediate Rash/Hives Verified 06/13/21 00:22 [From Polytrim] trimethoprim [From Polytrim] Allergy Intermediate Rash/Hives Verified 06/13/21 00:22 Review of Systems ROS Statement: Those systems with pertinent positive or pertinent negative responses have been documented in the HPI. ROS Other: All systems not noted in ROS Statement are negative. Constitutional: Denies: fever, chills Respiratory: Denies: cough, dyspnea Cardiovascular: Denies: chest pain, palpitations Gastrointestinal: Reports: abdominal pain. Denies: nausea, vomiting, diarrhea, constipation Genitourinary: Denies: dysuria, frequency, hematuria Musculoskeletal: Denies: back pain Skin: Denies: rash, lesions Neurological: Denies: headache, weakness, numbness, paresthesias Past Medical History Past Medical History: No Reported History Additional Past Medical History / Comment(s): Previous (35 weeks) for placental abruption. History of Any Multi-Drug Resistant Organisms: None Reported Past Surgical History: Section, Cholecystectomy Past Anesthesia/Blood Transfusion Reactions: No Reported Reaction Past Psychological History: No Psychological Hx Reported Smoking Status: Current every day smoker Past Alcohol Use History: None Reported Past Drug Use History: Marijuana - Past Family History Mother Family Medical History: No Reported History General Exam Limitations: no limitations General appearance: alert, in no apparent distress Head exam: Present: atraumatic, normocephalic Eye exam: Present: normal appearance. Absent: scleral icterus, conjunctival injection ENT exam: Present: normal oropharynx Neck exam: Present: normal inspection, full ROM Respiratory exam: Present: normal lung sounds bilaterally. Absent: respiratory distress, wheezes, rales, rhonchi, stridor Cardiovascular Exam: Present: regular rate, normal rhythm, normal heart sounds. Absent: systolic murmur, diastolic murmur, rubs, gallop GI/Abdominal exam: Present: soft, normal bowel sounds. Absent: distended, tenderness, guarding, rebound, rigid, mass, pulsatile mass, hernia Extremities exam: Present: normal inspection, normal capillary refill. Absent: pedal edema, calf tenderness Back exam: Present: normal inspection. Absent: CVA tenderness (R), CVA tenderness (L) Neurological exam: Present: alert Skin exam: Present: warm, dry, intact, normal color. Absent: rash Course Vital Signs 06/13/21 00:19 Temperature 98.3 F Pulse Rate 85 Respiratory 16 Rate Blood Pressure 139/94 O2 Sat by Pulse 98 Oximetry Medical Decision Making - Lab Data Result diagrams: 06/13/21 00:45 06/13/21 00:45 Lab Results 06/13/21 06/13/21 06/13/21 Range/Units 00:45 00:45 00:45 WBC 10.3 (3.8-10.6) k/uL RBC 4.46 (3.80-5.40) m/uL Hgb 11.0 L (11.4-16.0) gm/dL Hct 32.8 L (34.0-46.0) % MCV 73.4 L (80.0-100.0) fL MCH 24.7 L (25.0-35.0) pg MCHC 33.7 (31.0-37.0) g/dL RDW 17.0 H (11.5-15.5) % Plt Count 176 (150-450) k/uL MPV 9.2 Neutrophils % 61 % Lymphocytes % 28 % Monocytes % 7 % Eosinophils % 3 % Basophils % 0 % Neutrophils # 6.2 (1.3-7.7) k/uL Lymphocytes # 2.8 (1.0-4.8) k/uL Monocytes # 0.7 (0-1.0) k/uL Eosinophils # 0.3 (0-0.7) k/uL Basophils # 0.0 (0-0.2) k/uL Anisocytosis Slight Microcytosis Moderate Sodium 141 (137-145) mmol/L Potassium 3.4 L (3.5-5.1) mmol/L Chloride 107 (98-107) mmol/L Carbon Dioxide 25 (22-30) mmol/L Anion Gap 9 mmol/L BUN 9 (7-17) mg/dL Creatinine 0.68 (0.52-1.04) mg/dL Est GFR (CKD-EPI)AfAm >90 (>60 ml/min/1.73 sqM) Est GFR (CKD-EPI)NonAf >90 (>60 ml/min/1.73 sqM) Glucose 86 (74-99) mg/dL Calcium 8.9 (8.4-10.2) mg/dL Total Bilirubin <0.1 L (0.2-1.3) mg/dL AST 35 (14-36) U/L ALT 40 H (4-34) U/L Alkaline Phosphatase 68 (38-126) U/L Total Protein 6.4 (6.3-8.2) g/dL Albumin 3.9 (3.5-5.0) g/dL Amylase 40 (30-110) U/L Lipase 114 (23-300) U/L Urine Color Light Yellow Urine Appearance Cloudy H (Clear) Urine pH 6.0 (5.0-8.0) Ur Specific [place] 1.009 (1.001-1.035) Urine Protein 1+ H (Negative) Urine Glucose (UA) Negative (Negative) Urine Ketones Negative (Negative) Urine Blood Moderate H (Negative) Urine Nitrite Negative (Negative) Urine Bilirubin Negative (Negative) Urine Urobilinogen <2.0 (<2.0) mg/dL Ur Leukocyte Esterase Large H (Negative) Urine RBC 41 H (0-5) /hpf Urine WBC 64 H (0-5) /hpf Ur Squamous Epith Cells 2 (0-4) /hpf Urine Bacteria Occasional H (None) /hpf Urine Mucus Rare H (None) /hpf Urine HCG, Qual (Not Detectd) 06/13/21 Range/Units 00:45 WBC (3.8-10.6) k/uL RBC (3.80-5.40) m/uL Hgb (11.4-16.0) gm/dL Hct (34.0-46.0) % MCV (80.0-100.0) fL MCH (25.0-35.0) pg MCHC (31.0-37.0) g/dL RDW (11.5-15.5) % Plt Count (150-450) k/uL MPV Neutrophils % % Lymphocytes % % Monocytes % % Eosinophils % % Basophils % % Neutrophils # (1.3-7.7) k/uL Lymphocytes # (1.0-4.8) k/uL Monocytes # (0-1.0) k/uL Eosinophils # (0-0.7) k/uL Basophils # (0-0.2) k/uL Anisocytosis Microcytosis Sodium (137-145) mmol/L Potassium (3.5-5.1) mmol/L Chloride (98-107) mmol/L Carbon Dioxide (22-30) mmol/L Anion Gap mmol/L BUN (7-17) mg/dL Creatinine (0.52-1.04) mg/dL Est GFR (CKD-EPI)AfAm (>60 ml/min/1.73 sqM) Est GFR (CKD-EPI)NonAf (>60 ml/min/1.73 sqM) Glucose (74-99) mg/dL Calcium (8.4-10.2) mg/dL Total Bilirubin (0.2-1.3) mg/dL AST (14-36) U/L ALT (4-34) U/L Alkaline Phosphatase (38-126) U/L Total Protein (6.3-8.2) g/dL Albumin (3.5-5.0) g/dL Amylase (30-110) U/L Lipase (23-300) U/L Urine Color Urine Appearance (Clear) Urine pH (5.0-8.0) Ur Specific [place] (1.001-1.035) Urine Protein (Negative) Urine Glucose (UA) (Negative) Urine Ketones (Negative) Urine Blood (Negative) Urine Nitrite (Negative) Urine Bilirubin (Negative) Urine Urobilinogen (<2.0) mg/dL Ur Leukocyte Esterase (Negative) Urine RBC (0-5) /hpf Urine WBC (0-5) /hpf Ur Squamous Epith Cells (0-4) /hpf Urine Bacteria (None) /hpf Urine Mucus (None) /hpf Urine HCG, Qual Not Detected (Not Detectd) Disposition Clinical Impression: Urinary tract infection Disposition: HOME SELF-CARE Condition: Good Instructions (If sedation given, give patient instructions): Urinary Tract Infection in Women (ED) Prescriptions: Cephalexin [Keflex] 500 mg PO Q6HR #28 cap Is patient prescribed a controlled substance at d/c from ED?: No Referrals: None,Stated [Primary Care Provider] - 1-2 days
[2021-06-13 01:25] LABS: ALT 40 U/L (4-34); AST 35 U/L (14-36); African American GFR (CKD) >90 (>60 ml/min/1.73 sqM); Albumin 3.9 g/dL (3.5-5.0); Alkaline Phosphatase 68 U/L (38-126); Amylase 40 U/L (30-110); Anion Gap 9 mmol/L; Blood Urea Nitrogen 9 mg/dL (7-17); Calcium 8.9 mg/dL (8.4-10.2); Carbon Dioxide 25 mmol/L (22-30); Chloride 107 mmol/L (98-107); Glucose 86 mg/dL (74-99); Lipase 114 U/L (23-300); Non-African American GFR(CKD) >90 (>60 ml/min/1.73 sqM); Potassium 3.4 mmol/L (3.5-5.1); Sodium 141 mmol/L (137-145); Total Bilirubin <0.1 mg/dL (0.2-1.3); Total Protein 6.4 g/dL (6.3-8.2)
[2021-06-13 02:49] VITALS: BP 128/88; PULSE 86
== END 2021-06-13 02:49 | disposition home or self-care (01) ==
LOC: EC 00:18
DX: N39.0 Urinary tract infection, site not specified (principal); F17.200 Nicotine dependence, unspecified, uncomplicated; Z88.1 Allergy status to other antibiotic agents; Z88.8 Allergy status to other drugs, medicaments and biological substances
CPT/HCPCS: 36415; 80053; 82150; 83690; 85025; 81001; 81025; 96365; 96375; 99283; J2270; J0696

== ENCOUNTER → 2021-09-24 | Outpatient (CLI) | payer OTHER | END | disposition home or self-care (01) | LOC: LABWHC1 09:51 | PROVIDERS: ATTEND Obstetrics & Gynecology | DX: O20.0 Threatened abortion (principal); Z3A.00 Weeks of gestation of pregnancy not specified | CPT/HCPCS: 36415; 84702 ==

== ENCOUNTER 2021-09-28 00:18 | Emergency (ER) | payer OTHER ==
[2021-09-28 00:32] VITALS: TEMP 97.3
[2021-09-28 01:33] LABS: Anisocytosis Slight; Basophils % (A) 0 %; Eosinophils # (A) 0.2 k/uL (0-0.7); Eosinophils % (A) 3 %; HCT 38.3 % (34.0-46.0); HGB 12.4 gm/dL (11.4-16.0); Lymphocytes # (A) 3.4 k/uL (1.0-4.8); Lymphocytes % (A) 37 %; MCH 26.6 pg (25.0-35.0); MCHC 32.3 g/dL (31.0-37.0); MCV 82.5 fL (80.0-100.0); Mean Platelet Volume 8.9; Monocytes # (A) 0.6 k/uL (0-1.0); Monocytes % (A) 6 %; Neutrophils # (A) 4.8 k/uL (1.3-7.7); Neutrophils % (A) 53 %; Platelet Count 174 k/uL (150-450); RBC 4.65 m/uL (3.80-5.40); RDW 17.2 % (11.5-15.5); WBC 9.2 k/uL (3.8-10.6)
[2021-09-28 01:35] LABS: Appearance,Urine Cloudy (Clear); Bacteria,Urine Rare /hpf; Bilirubin,Urine Negative (Negative); Blood,Urine Large (Negative); Color,Urine Yellow; Glucose,Urine (UA) Negative (Negative); Ketones,Urine Negative (Negative); Leukocyte Esterase,Urine Trace (Negative); Mucus,Urine Rare /hpf; Nitrite,Urine Negative (Negative); PH, Urine 6.5 (5.0-8.0); Protein,Urine Negative (Negative); RBC,Urine 1 /hpf (0-5); Specific Gravity,Urine 1.018 (1.001-1.035); Squamous Epithelial Cell,Urine 8 /hpf (0-4); Urobilinogen,Urine <2.0 mg/dL (<2.0); WBC,Urine 4 /hpf (0-5)
[2021-09-28 01:45] LABS: ALT 16 U/L (4-34); AST 23 U/L (14-36); African American GFR (CKD) >90 (>60 ml/min/1.73 sqM); Albumin 4.2 g/dL (3.5-5.0); Alkaline Phosphatase 61 U/L (38-126); Anion Gap 8 mmol/L; Blood Urea Nitrogen 9 mg/dL (7-17); Calcium 9.3 mg/dL (8.4-10.2); Carbon Dioxide 21 mmol/L (22-30); Chloride 107 mmol/L (98-107); Glucose 95 mg/dL (74-99); Non-African American GFR(CKD) >90 (>60 ml/min/1.73 sqM); Potassium 3.6 mmol/L (3.5-5.1); Sodium 136 mmol/L (137-145); Total Bilirubin 0.2 mg/dL (0.2-1.3); Total Protein 7.1 g/dL (6.3-8.2)
--- NOTE | 2021-09-28 01:54 | US ---
EXAMINATION TYPE: Transabdominal DATE OF EXAM: 09/28/2021 1:37 AM COMPARISON: US, This is first US for this at this facility. CLINICAL HISTORY: Pelvic pain; vag bleeding; 8 weeks. Pain and vaginal bleeding. Hx 2 C-Sections. . EXAM PERFORMED: Transvaginal (TV) and Transabdominal (TA) EXAM MEASUREMENTS: GESTATIONAL AGE / DATING Physician Established: (11 weeks/2 days) EDC: 04/17/2022 Dates by LMP: (12 weeks/2 days) EDC: 04/10/2022 Dates by First Scan: This is first scan at this facility. Dates by Current Scan for: (7 weeks/2 days) EDC: 05/15/2022. Gestational sac seen only at this time. No pole visualized. MATERNAL ANATOMY Uterus: 8.0 x 6.7 x 5.9 cm. Retroverted. Right Ovary: 3.1 x 1.4 x 1.8 cm. Left Ovary: Not visualized. Post CDS / Adnexa: Fluid seen in CDS. Presence of free fluid: Minimal free fluid seen in CDS. Presence of corpus luteal cyst: Not seen. Presence of subchorionic bleed: Hypoechoic area seen adjacent to the gestational sac: 1.0 x 1.6 x 1.8 cm. GESTATION / SURVEY CRL: No pole seen. MSD: 2.53 cm. (7 weeks/2 days) Yolk Sac (normal less than 6mm): Not seen. IUP: Gestational sac seen at this time. Date of LMP: 07/04/2021 Beta HcG (if available): Not available. IMPRESSION: There is apparent intrauterine gestational sac but no pole or yolk sac seen. This could be blig hted ovum. No evidence of ectopic . No adnexal mass.
[2021-09-28 02:00] LABS: HCG,Quantitative Serum 13271.3 mIU/mL
--- NOTE | 2021-09-28 02:25 | ED ---
General Adult HPI - General Chief complaint: Vaginal Bleeding Stated complaint: 12 weeks bleeding and cramps Time Seen by Provider: 09/28/21 00:32 Source: family Mode of arrival: ambulatory Limitations: no limitations - History of Present Illness Initial comments: 21-year-old female patient presents to the emergency department today for evaluation of lower abdominal cramping and light vaginal bleeding. She is G3, P2. Last menstrual period was 07/04/2021. States that she has had several abnormal ultrasounds. States they have been unable to detect heart tones. Plan was to repeat ultrasound in 1 week. She had HCG level of 20,000 three days ago. States that tonight she has had light orange colored spotting, a red streak on the toilet paper, then back to orange colored spotting. States she has been having suprapubic cramping throughout the day. Left low back pain. She denies any passage of blood clots or having to wear a pad. Denies taking anything for pain. Denies history of miscarriage. She sees Dr. Sparrow for OBGYN. Patient de nies any recent rash, fever, chills, cough, shortness of breath, chest pain, nausea, vomiting, diarrhea, constipation, numbness, tingling, dizziness, weakness, hematuria, dysuria, urinary urgency, urinary frequency, headache, visual changes, or any other complaints. - Related Data Home Medications Medication Instructions Recorded Confirmed Pnv No.95/Ferrous Fum/Folic AC 1 tab PO DAILY 04/09/21 04/09/21 [ Multivitamin Tablet] Previous Rx's Medication Instructions Recorded Ibuprofen [Motrin] 600 mg PO Q6H #40 tab 04/11/21 oxyCODONE HCL [OxyIR] 5 mg PO Q4HR PRN #20 tab 04/11/21 Cephalexin [Keflex] 500 mg PO Q6HR #28 cap 06/13/21 Allergies Allergy/AdvReac Type Severity Reaction Status Date / Time polymyxin B sulfate Allergy Intermediate Rash/Hives Verified 09/28/21 00:31 [From Polytrim] trimethoprim [From Polytrim] Allergy Intermediate Rash/Hives Verified 09/28/21 00:31 Review of Systems ROS Statement: Those systems with pertinent positive or pertinent negative responses have been documented in the HPI. ROS Other: All systems not noted in ROS Statement are negative. Past Medical History Past Medical History: No Reported History Additional Past Medical History / Comment(s): Previous (35 weeks) for placental abruption. History of Any Multi-Drug Resistant Organisms: None Reported Past Surgical History: Section, Cholecystectomy Past Anesthesia/Blood Transfusion Reactions: No Reported Reaction Past Psychological History: No Psychological Hx Reported Smoking Status: Current every day smoker Past Alcohol Use History: None Reported Past Drug Use History: Marijuana - Past Family History Mother Family Medical History: No Reported History General Exam Limitations: no limitations General appearance: alert, in no apparent distress, other (This is a well- developed, well-nourished adult female patient in no acute distress. Vital signs upon presentation temperature 97.3F, pulse 85, respirations 18, blood pressure 121/79, pulse ox 99% on room air.) Eye exam: Present: normal appearance, PERRL, EOMI. Absent: scleral icterus, conjunctival injection, periorbital swelling ENT exam: Present: normal exam, normal oropharynx, mucous membranes moist Respiratory exam: Present: normal lung sounds bilaterally. Absent: respiratory distress, wheezes, rales, rhonchi, stridor Cardiovascular Exam: Present: regular rate, normal rhythm, normal heart sounds. Absent: systolic murmur, diastolic murmur, rubs, gallop, clicks GI/Abdominal exam: Present: soft, tenderness (Suprapubic), normal bowel sounds. Absent: distended, guarding, rebound, rigid Neurological exam: Present: alert, oriented X3, CN II-XII intact Psychiatric exam: Present: normal affect, normal mood Skin exam: Present: warm, dry, intact, normal color. Absent: rash Course Vital Signs 09/28/21 00:26 Temperature 97.3 F L Pulse Rate 85 Respiratory 18 Rate Blood Pressure 121/79 O2 Sat by Pulse 99 Oximetry Medical Decision Making - Medical Decision Making 21-year-old female patient presented to the emergency department today for evaluation of lower abdominal cramping, back pain, vaginal spotting. Physical examination did reveal mild suprapubic tenderness. Labs reviewed and did reveal normal hemoglobin. She did have hCG level drawn 13,000, this was 20,000 3 days ago. Ultrasound here today shows likely blighted ovum. I did discuss findings and results with the patient. She'll be discharged to follow-up with instructions to call Dr. Sparrow first thing in the morning. Return parameters were discussed in detail. She verbalizes understanding and agrees with this plan. Case discussed with my attending Dr. Driscoll. - Lab Data Result diagrams: 09/28/21 01:01 09/28/21 01:01 Lab Results 09/28/21 09/28/21 09/28/21 Range/Units 01:01 01:01 01:01 WBC 9.2 (3.8-10.6) k/uL RBC 4.65 (3.80-5.40) m/uL Hgb 12.4 (11.4-16.0) gm/dL Hct 38.3 (34.0-46.0) % MCV 82.5 (80.0-100.0) fL MCH 26.6 (25.0-35.0) pg MCHC 32.3 (31.0-37.0) g/dL RDW 17.2 H (11.5-15.5) % Plt Count 174 (150-450) k/uL MPV 8.9 Neutrophils % 53 % Lymphocytes % 37 % Monocytes % 6 % Eosinophils % 3 % Basophils % 0 % Neutrophils # 4.8 (1.3-7.7) k/uL Lymphocytes # 3.4 (1.0-4.8) k/uL Monocytes # 0.6 (0-1.0) k/uL Eosinophils # 0.2 (0-0.7) k/uL Basophils # 0.0 (0-0.2) k/uL Anisocytosis Slight Sodium 136 L (137-145) mmol/L Potassium 3.6 (3.5-5.1) mmol/L Chloride 107 (98-107) mmol/L Carbon Dioxide 21 L (22-30) mmol/L Anion Gap 8 mmol/L BUN 9 (7-17) mg/dL Creatinine 0.51 L (0.52-1.04) mg/dL Est GFR (CKD-EPI)AfAm >90 (>60 ml/min/1.73 sqM) Est GFR (CKD-EPI)NonAf >90 (>60 ml/min/1.73 sqM) Glucose 95 (74-99) mg/dL Calcium 9.3 (8.4-10.2) mg/dL Total Bilirubin 0.2 (0.2-1.3) mg/dL AST 23 (14-36) U/L ALT 16 (4-34) U/L Alkaline Phosphatase 61 (38-126) U/L Total Protein 7.1 (6.3-8.2) g/dL Albumin 4.2 (3.5-5.0) g/dL HCG, Quant 66359.3 mIU/mL Urine Color Yellow Urine Appearance Cloudy H (Clear) Urine pH 6.5 (5.0-8.0) Ur Specific [place] 1.018 (1.001-1.035) Urine Protein Negative (Negative) Urine Glucose (UA) Negative (Negative) Urine Ketones Negative (Negative) Urine Blood Large H (Negative) Urine Nitrite Negative (Negative) Urine Bilirubin Negative (Negative) Urine Urobilinogen <2.0 (<2.0) mg/dL Ur Leukocyte Esterase Trace H (Negative) Urine RBC 1 (0-5) /hpf Urine WBC 4 (0-5) /hpf Ur Squamous Epith Cells 8 H (0-4) /hpf Urine Bacteria Rare H (None) /hpf Urine Mucus Rare H (None) /hpf - Radiology Data Radiology results: report reviewed, image reviewed Ultrasound of the fetus was obtained. Report was reviewed in its entirety. Im pression by Dr. Pena shows apparent intrauterine gestational sac but no pole or yolk sac seen. This could be a blighted ovum. No evidence of ectopic . No adnexal mass. Disposition Clinical Impression: Blighted ovum Disposition: HOME SELF-CARE Condition: Good Instructions (If sedation given, give patient instructions): Miscarriage (ED) Additional Instructions: Take Tylenol for pain control. Call Dr. Sparrow's office first thing in the morning and inform her of your new symptoms and visit to the emergency department. Return to the emergency department for any new, worsening, or concerning symptoms. Is patient prescribed a controlled substance at d/c from ED?: No Referrals: None,Stated [Primary Care Provider] - 1-2 days Time of Disposition: 02:25
[2021-09-28 02:43] VITALS: BP 114/86; PULSE 81; RESP 20
== END 2021-09-28 02:43 | disposition home or self-care (01) ==
LOC: EC 00:18
DX: O02.0 Blighted ovum and nonhydatidiform mole (principal); O26.891 Other specified pregnancy related conditions, first trimester; O99.331 Smoking (tobacco) complicating pregnancy, first trimester; R10.30 Lower abdominal pain, unspecified; M54.50 Low back pain, unspecified; F17.200 Nicotine dependence, unspecified, uncomplicated; Z3A.12 12 weeks gestation of pregnancy; Z88.1 Allergy status to other antibiotic agents; Z88.8 Allergy status to other drugs, medicaments and biological substances
CPT/HCPCS: 36415; 76801; 76817; 80053; 81001; 84702; 85025; 99284

== ENCOUNTER 2021-09-29 11:36 | Emergency (ER) | payer OTHER ==
[2021-09-29 11:40] VITALS: TEMP 97.6
[2021-09-29] MEDS ORDERED: SODIUM CHLORIDE 0.9% 1,000 ML IV ONE (12:27)
[2021-09-29] MEDS ORDERED: HYDROmorphone 0.5 MG/0.5 ML SYRINGE IVP STA ×2 (12:27→14:30)
--- NOTE | 2021-09-29 12:37 | ED ---
General Adult HPI - General Chief complaint: Vaginal Bleeding Stated complaint: early , vaginal bleeding Time Seen by Provider: 09/29/21 11:58 Source: patient Mode of arrival: ambulatory Limitations: no limitations - History of Present Illness Initial comments: 21-year-old female presents to the emergency room for a chief complaint of vaginal bleeding. Patient is a female currently 12 weeks by LMP but stating 8 weeks . Patient states she started to have vaginal bleeding and pain 2 days ago. Patient came to the ER where she had blood work performed and an ultrasound. HCG was decreasing. Patient had maybe a gesta tional sac noted on ultrasound. Patient states she went home and did call her doctor but had not heard back yet. Patient states the bleeding and pain worsened again today.Patient has no other complaints at this time including shortness of breath, chest pain, abdominal pain, nausea or vomiting, headache, or visual changes. - Related Data Home Medications Medication Instructions Recorded Confirmed Pnv No.95/Ferrous Fum/Folic AC 1 tab PO DAILY 04/09/21 04/09/21 [ Multivitamin Tablet] Previous Rx's Medication Instructions Recorded Ibuprofen [Motrin] 600 mg PO Q6H #40 tab 04/11/21 oxyCODONE HCL [OxyIR] 5 mg PO Q4HR PRN #20 tab 04/11/21 Cephalexin [Keflex] 500 mg PO Q6HR #28 cap 06/13/21 Allergies Allergy/AdvReac Type Severity Reaction Status Date / Time polymyxin B sulfate Allergy Intermediate Rash/Hives Verified 09/29/21 11:40 [From Polytrim] trimethoprim [From Polytrim] Allergy Intermediate Rash/Hives Verified 09/29/21 11:40 Review of Systems ROS Statement: Those systems with pertinent positive or pertinent negative responses have been documented in the HPI. ROS Other: All systems not noted in ROS Statement are negative. Past Medical History Past Medical History: No Reported History Additional Past Medical History / Comment(s): Previous (35 weeks) for placental abruption. History of Any Multi-Drug Resistant Organisms: None Reported Past Surgical History: Section, Cholecystectomy Past Anesthesia/Blood Transfusion Reactions: No Reported Reaction Past Psychological History: No Psychological Hx Reported Smoking Status: Current every day smoker Past Alcohol Use History: None Reported Past Drug Use History: Marijuana - Past Family History Mother Family Medical History: No Reported History General Exam Limitations: no limitations General appearance: alert, in no apparent distress Head exam: Present: atraumatic Eye exam: Present: normal appearance, PERRL, EOMI. Absent: scleral icterus, conjunctival injection ENT exam: Present: normal exam, mucous membranes moist Neck exam: Present: normal inspection, full ROM. Absent: tenderness Respiratory exam: Present: normal lung sounds bilaterally. Absent: respiratory distress, wheezes Cardiovascular Exam: Present: regular rate, normal rhythm, normal heart sounds GI/Abdominal exam: Present: soft, normal bowel sounds. Absent: distended, tenderness External exam: Present: normal external exam. Absent: erythema, swelling, lesions, lacerations, ecchymosis Speculum exam: Present: vaginal bleeding (mild) By manual exam: Present: adnexal tenderness, uterine tenderness. Absent: normal by manual exam Course Vital Signs 09/29/21 11:37 Temperature 97.6 F Pulse Rate 88 Respiratory 20 Rate Blood Pressure 113/75 O2 Sat by Pulse 99 Oximetry Medical Decision Making - Medical Decision Making Vitals are stable. Patient is well-appearing. CBC CMP unremarkable. Patient does have some mild leukocytosis which is likely reactive. HCG is decreasing. It is down to 10,000 from 20,000. Patient is A+ blood type. Physical exam revealed mild vaginal bleeding with clotting. Patient was given pain medication and had significant improvement in pain and symptoms. Ultrasound did show MDS within the lower uterine segment or cervix. Pelvic exam did not reveal any tissue in the cervical cause. Patient does prefer discharge home. Case was discussed with her TRAFFIC OBSERVER who has been trying to follow-up with patient but has not been able to get through. I will send her patient's phone number that she has been using. She is aware of start return parameters and will return to the hospital for any worsening bleeding. - Lab Data Result diagrams: 09/29/21 12:54 09/29/21 12:54 Lab Results 09/29/21 09/29/21 09/29/21 Range/Units 12:54 12:54 12:54 WBC 15.0 H (3.8-10.6) k/uL RBC 4.62 (3.80-5.40) m/uL Hgb 12.8 (11.4-16.0) gm/dL Hct 37.4 (34.0-46.0) % MCV 80.9 (80.0-100.0) fL MCH 27.6 (25.0-35.0) pg MCHC 34.2 (31.0-37.0) g/dL RDW 17.6 H (11.5-15.5) % Plt Count 204 (150-450) k/uL MPV 8.6 Neutrophils % 69 % Lymphocytes % 22 % Monocytes % 6 % Eosinophils % 2 % Basophils % 0 % Neutrophils # 10.3 H (1.3-7.7) k/uL Lymphocytes # 3.3 (1.0-4.8) k/uL Monocytes # 0.9 (0-1.0) k/uL Eosinophils # 0.3 (0-0.7) k/uL Basophils # 0.0 (0-0.2) k/uL Anisocytosis Slight Microcytosis Slight Sodium 138 (137-145) mmol/L Potassium 3.7 (3.5-5.1) mmol/L Chloride 107 (98-107) mmol/L Carbon Dioxide 20 L (22-30) mmol/L Anion Gap 11 mmol/L BUN 6 L (7-17) mg/dL Creatinine 0.60 (0.52-1.04) mg/dL Est GFR (CKD-EPI)AfAm >90 (>60 ml/min/1.73 sqM) Est GFR (CKD-EPI)NonAf >90 (>60 ml/min/1.73 sqM) Glucose 90 (74-99) mg/dL Calcium 9.3 (8.4-10.2) mg/dL Total Bilirubin 0.5 (0.2-1.3) mg/dL AST 23 (14-36) U/L ALT 17 (4-34) U/L Alkaline Phosphatase 73 (38-126) U/L Total Protein 7.2 (6.3-8.2) g/dL Albumin 4.2 (3.5-5.0) g/dL HCG, Quant 20314.7 mIU/mL Blood Type A Positive Blood Type Recheck A Pos Bld Type Recheck Status No Antibody Screen NEGATIVE Spec Expiration Date 10/02/2021 - 2353 Disposition Clinical Impression: Incomplete miscarriage Disposition: HOME SELF-CARE Condition: Good Instructions (If sedation given, give patient instructions): Miscarriage (ED) Additional Instructions: Please follow up with Dr. Sparrow Friday morning. If you're having worsening vaginal bleeding or pain return immediately to the emergency room. Is patient prescribed a controlled substance at d/c from ED?: No Referrals: Claudia Rivera DO [Primary Care Provider] - 1-2 days Alva Sparrow DO [Doctor of Osteopathic Medicine] - 1-2 days Time of Disposition: 15:46
[2021-09-29 13:19] LABS: Anisocytosis Slight; Basophils % (A) 0 %; Eosinophils # (A) 0.3 k/uL (0-0.7); Eosinophils % (A) 2 %; HCT 37.4 % (34.0-46.0); HGB 12.8 gm/dL (11.4-16.0); Lymphocytes # (A) 3.3 k/uL (1.0-4.8); Lymphocytes % (A) 22 %; MCH 27.6 pg (25.0-35.0); MCHC 34.2 g/dL (31.0-37.0); MCV 80.9 fL (80.0-100.0); Mean Platelet Volume 8.6; Microcytosis Slight; Monocytes # (A) 0.9 k/uL (0-1.0); Monocytes % (A) 6 %; Neutrophils # (A) 10.3 k/uL (1.3-7.7); Neutrophils % (A) 69 %; Platelet Count 204 k/uL (150-450); RBC 4.62 m/uL (3.80-5.40); RDW 17.6 % (11.5-15.5)
[2021-09-29 13:35] LABS: ALT 17 U/L (4-34); AST 23 U/L (14-36); African American GFR (CKD) >90 (>60 ml/min/1.73 sqM); Albumin 4.2 g/dL (3.5-5.0); Alkaline Phosphatase 73 U/L (38-126); Anion Gap 11 mmol/L; Blood Urea Nitrogen 6 mg/dL (7-17); Calcium 9.3 mg/dL (8.4-10.2); Carbon Dioxide 20 mmol/L (22-30); Chloride 107 mmol/L (98-107); Glucose 90 mg/dL (74-99); Non-African American GFR(CKD) >90 (>60 ml/min/1.73 sqM); Potassium 3.7 mmol/L (3.5-5.1); Sodium 138 mmol/L (137-145); Total Bilirubin 0.5 mg/dL (0.2-1.3); Total Protein 7.2 g/dL (6.3-8.2)
[2021-09-29 13:52] LABS: HCG,Quantitative Serum 10540.7 mIU/mL
--- NOTE | 2021-09-29 13:58 | US ---
EXAMINATION TYPE: Transabdominal DATE OF EXAM: 09/29/2021 1:41 PM COMPARISON: NONE CLINICAL HISTORY: likely miscarriage. cramping, heavy bleeding with clots EXAM PERFORMED: Transabdominal (TA) - patient denied TV exam at this time EXAM MEASUREMENTS: GESTATIONAL AGE / DATING Physician Established: Not yet established Dates by LMP: (12 weeks/3 days) EDC: 04/10/22 Dates by First Scan: (7 weeks/3 days) EDC: 05/15/22 - MSD Dates by Current Scan for: (7 weeks/4 days) EDC: 05/14/22 - MSD MATERNAL ANATOMY Uterus: 8.0 x 4.4 x 4.6cm Right Ovary: 2.7 x 1.8 x 1.8cm Left Ovary: 3.1 x 1.2 x 1.9cm Post CDS / Adnexa: appears wnl Presence of free fluid: no Presence of corpus luteal cyst: not seen GESTATION / SURVEY MSD: 2.4cm (7 weeks/4 days) - located within DIANA/cervix Yolk Sac (normal less than 6mm): not seen no evidence of pole at this time Date of LMP: 07/04/21 Beta HcG (if available): Not available at this time IMPRESSION: Findings may represent incomplete miscarriage, correlate, patient denied transvaginal exam
[2021-09-29] MEDS ORDERED: ACET/COD 300 MG/30 MG STARTER PACK 6 TAB BTL PO STA (16:03)
[2021-09-29 16:22] VITALS: BP 130/63; PULSE 85; RESP 18
== END 2021-09-29 16:08 | disposition home or self-care (01) ==
LOC: EC 11:36
DX: O03.4 Incomplete spontaneous abortion without complication (principal); O99.111 Other diseases of the blood and blood-forming organs and certain disorders involving the immune mechanism complicating pregnancy, first trimester; O99.331 Smoking (tobacco) complicating pregnancy, first trimester; D72.829 Elevated white blood cell count, unspecified; F17.200 Nicotine dependence, unspecified, uncomplicated; Z88.8 Allergy status to other drugs, medicaments and biological substances; Z88.1 Allergy status to other antibiotic agents; Z90.49 Acquired absence of other specified parts of digestive tract; Z3A.01 Less than 8 weeks gestation of pregnancy; Z67.10 Type A blood, Rh positive
CPT/HCPCS: 86900; 86901; 80053; 85025; 86850; 84702; 76801; 99284; 96374; 96361; 96376; J1170

== ENCOUNTER 2021-09-29 18:02 | Observation (INO) | payer OTHER ==
[2021-09-29] MEDS ORDERED: HYDROmorphone 0.5 MG/0.5 ML SYRINGE IVP STA (18:19)
[2021-09-29] MEDS ORDERED: KETOROLAC 15 MG/ML 1 ML VIAL IVP STA (18:19)
[2021-09-29 18:31] LABS: Anisocytosis Slight; Basophils # (A) 0.1 k/uL (0-0.2); Basophils % (A) 0 %; Eosinophils # (A) 0.4 k/uL (0-0.7); Eosinophils % (A) 2 %; HCT 38.9 % (34.0-46.0); HGB 12.4 gm/dL (11.4-16.0); Lymphocytes # (A) 4.2 k/uL (1.0-4.8); Lymphocytes % (A) 22 %; MCH 26.5 pg (25.0-35.0); MCHC 31.9 g/dL (31.0-37.0); MCV 83.1 fL (80.0-100.0); Mean Platelet Volume 8.7; Monocytes # (A) 1.3 k/uL (0-1.0); Monocytes % (A) 7 %; Neutrophils # (A) 13.1 k/uL (1.3-7.7); Neutrophils % (A) 68 %; Platelet Count 242 k/uL (150-450); RBC 4.68 m/uL (3.80-5.40); RDW 17.2 % (11.5-15.5); WBC 19.2 k/uL (3.8-10.6)
--- NOTE | 2021-09-29 18:36 | ED ---
Female Urogenital HPI - General Chief complaint: Vaginal Bleeding Stated complaint: 12 Weeks pg vag bleeding Time Seen by Provider: 09/29/21 18:14 Source: patient Mode of arrival: wheelchair Limitations: no limitations - History of Present Illness Initial comments: 21 year-old female patient, , presents for evaluation for the second time today for increased vaginal bleeding and lower abdominal pain. Patient is 12 weeks , actively miscarrying. She had multiple abdominal ultrasounds and decreasing HCG over the last few days. States she was discharged around 1545 and since then her pain and bleeding has worsened. States she cannot get co mfortable. She denies fever or chills. Denies difficulty urinating. Patient denies any recent rash, cough, shortness of breath, chest pain, nausea, vomiting, diarrhea, constipation, back pain, numbness, tingling, dizziness, weakness, headache, visual changes, or any other complaints. - Related Data Home Medications Medication Instructions Recorded Confirmed No Known Home Medications 09/29/21 09/29/21 Allergies Allergy/AdvReac Type Severity Reaction Status Date / Time polymyxin B sulfate Allergy Intermediate Rash/Hives Verified 09/29/21 20:08 [From Polytrim] trimethoprim [From Polytrim] Allergy Intermediate Rash/Hives Verified 09/29/21 20:08 Review of Systems ROS Statement: Those systems with pertinent positive or pertinent negative responses have been documented in the HPI. ROS Other: All systems not noted in ROS Statement are negative. Past Medical History Past Medical History: No Reported History Additional Past Medical History / Comment(s): Previous (35 weeks) for placental abruption. History of Any Multi-Drug Resistant Organisms: None Reported Past Surgical History: Section, Cholecystectomy Past Anesthesia/Blood Transfusion Reactions: No Reported Reaction Past Psychological History: No Psychological Hx Reported Smoking Status: Current every day smoker Past Alcohol Use History: None Reported Past Drug Use History: Marijuana - Past Family History Mother Family Medical History: No Reported History General Exam Limitations: no limitations General appearance: alert, in no apparent distress, other (This is a well- developed, well-nourished adult female patient in no acute distress. Vital signs upon presentation. 97.2F, pulse 101, respirations 20, blood pressure 124 radial 5, pulse ox 99% on room air.) ENT exam: Present: normal exam, normal oropharynx, mucous membranes moist Respiratory exam: Present: normal lung sounds bilaterally. Absent: respiratory distress, wheezes, rales, rhonchi, stridor Cardiovascular Exam: Present: regular rate, normal rhythm, normal heart sounds. Absent: systolic murmur, diastolic murmur, rubs, gallop, clicks GI/Abdominal exam: Present: soft, tenderness (Suprapubic), normal bowel sounds. Absent: distended, guarding, rebound, rigid Neurological exam: Present: alert, oriented X3, CN II-XII intact Psychiatric exam: Present: normal affect, normal mood Skin exam: Present: warm, dry, intact, normal color. Absent: rash Course Vital Signs 09/29/21 18:22 Temperature 97.2 F L Pulse Rate 101 H Respiratory 20 Rate Blood Pressure 124/85 O2 Sat by Pulse 99 Oximetry Medical Decision Making - Medical Decision Making 21-year-old female patient presented to the emergency department today for evaluation of increasing vaginal bleeding and abdominal pain. The patient is approximately 12 weeks with abnormal ultrasound showing incomplete . She was discharged around 1545 this afternoon but returned due to worsening pain. Repeated CBC which showed elevated wbc count. Normal hemoglobin. Repeated pelvic exam which showed mild dark red bleeding in the vaginal vault. Cervical os closed and clear. Did discuss the case again with Dr. Sparrow who agrees to admission. Plan is for D&C in the morning. Patient is agreeable with this plan. Pain medication will be provided. Case discussed with my attending Dr. Arceo. - Lab Data Result diagrams: 09/29/21 18:25 Lab Results 09/29/21 Range/Units 18:25 WBC 19.2 H (3.8-10.6) k/uL RBC 4.68 (3.80-5.40) m/uL Hgb 12.4 (11.4-16.0) gm/dL Hct 38.9 (34.0-46.0) % MCV 83.1 (80.0-100.0) fL MCH 26.5 (25.0-35.0) pg MCHC 31.9 (31.0-37.0) g/dL RDW 17.2 H (11.5-15.5) % Plt Count 242 (150-450) k/uL MPV 8.7 Neutrophils % 68 % Lymphocytes % 22 % Monocytes % 7 % Eosinophils % 2 % Basophils % 0 % Neutrophils # 13.1 H (1.3-7.7) k/uL Lymphocytes # 4.2 (1.0-4.8) k/uL Monocytes # 1.3 H (0-1.0) k/uL Eosinophils # 0.4 (0-0.7) k/uL Basophils # 0.1 (0-0.2) k/uL Anisocytosis Slight Disposition Clinical Impression: Incomplete , Intractable pain Disposition: ADMITTED IP TO THIS [facility] Condition: Serious Decision to Admit Reason: Admit from EC Decision Date: 09/29/21 Decision Time: 19:24
[2021-09-29] MEDS ORDERED: ONDANSETRON 4 MG/2 ML VIAL IVP PRN (19:20)
[2021-09-29] MEDS ORDERED: NALOXONE 0.4 MG/ML 1 ML VIAL IV PRN (19:20)
[2021-09-29] MEDS ORDERED: KETOROLAC 15 MG/ML 1 ML VIAL IVP PRN (19:20)
[2021-09-29] MEDS: HYDROmorphone 1 MG/ML 1 ML SYRINGE IVP PRN ×2 (19:58→23:11)
[2021-09-29] MEDS: SODIUM CHLORIDE 0.9% 1,000 ML IV SCH (20:03)
[2021-09-30] MEDS: HYDROmorphone 1 MG/ML 1 ML SYRINGE IVP PRN ×2 (05:31→08:24)
--- NOTE | 2021-09-30 08:05 | P.HPOB ---
History of Present Illness H&P Date: 09/30/21 Chief Complaint: Blighted ovum with intractable pain and bleeding 21-year-old presents after a blighted ovum has been diagnosed. She is supposed to be 12 weeks but ultrasound showing a 7 week gestational sac with no pole or yolk sac. Patient is having some bleeding and her beta hCG went from 20,000-13,000. She came to the ER 3 times and the last time her pain is worsening and bleeding is worsening. She was admitted and is being consented for a suction D&C. Review of Systems All systems: negative Constitutional: Denies chills, Denies fever Eyes: denies blurred vision, denies pain Ears, nose, mouth and throat: Denies headache, Denies sore throat Cardiovascular: Denies chest pain, Denies shortness of breath Respiratory: Denies cough Gastrointestinal: Denies abdominal pain, Denies diarrhea, Denies nausea, Denies vomiting Genitourinary: Denies dysuria, Denies hematuria Musculoskeletal: Denies myalgias Integumentary: Denies pruritus, Denies rash Neurological: Denies numbness, Denies weakness Psychiatric: Denies anxiety, Denies depression Endocrine: Denies fatigue, Denies weight change Past Medical History Past Medical History: No Reported History Additional Past Medical History / Comment(s): Previous (35 weeks) for placental abruption. History of Any Multi-Drug Resistant Organisms: None Reported Past Surgical History: Section, Cholecystectomy Past Anesthesia/Blood Transfusion Reactions: No Reported Reaction Past Psychological History: No Psychological Hx Reported Smoking Status: Current every day smoker Past Alcohol Use History: None Reported Past Drug Use History: Marijuana Additional Drug Use History / Comment(s): pt states smokes less than half a pack a day - Past Family History Mother Family Medical History: No Reported History Medications and Allergies Home Medications Medication Instructions Recorded Confirmed Type No Known Home Medications 09/29/21 09/29/21 History Allergies Allergy/AdvReac Type Severity Reaction Status Date / Time polymyxin B sulfate Allergy Intermediate Rash/Hives Verified 09/29/21 23:02 [From Polytrim] trimethoprim [From Polytrim] Allergy Intermediate Rash/Hives Verified 09/29/21 23:02 Exam Osteopathic Statement: *. No significant issues noted on an osteopathic stru ctural exam other than those noted in the History and Physical/Consult. Vital Signs Temp Pulse Pulse Resp BP BP Pulse Ox 09/30/21 05:43 98.4 F 85 16 95/58 99 09/29/21 23:04 98.4 F 85 18 114/76 99 09/29/21 22:40 98.4 F 85 17 114/76 99 09/29/21 22:25 77 18 120/72 99 09/29/21 18:22 97.2 F L 101 H 20 124/85 99 Intake and Output 09/29/21 09/30/21 09/30/21 22:59 06:59 14:59 Intake Total 0 Balance 0 Intake: Oral 0 Other: Weight 95.25 kg 95.481 kg Heart: Regular rate and rhythm Lungs: Clear to auscultation bilaterally Abdomen: Soft, nontender Extremities: Negative Homans sign Results Result Diagrams: 09/29/21 18:25 Abnormal Lab Results - Last 24 Hours (Table) 09/29/21 Range/Units 18:25 WBC 19.2 H (3.8-10.6) k/uL RDW 17.2 H (11.5-15.5) % Neutrophils # 13.1 H (1.3-7.7) k/uL Monocytes # 1.3 H (0-1.0) k/uL Assessment and Plan (1) Blighted ovum Current Visit: No Status: Acute Code(s): O02.0 - BLIGHTED OVUM AND NONHYDATIDIFORM MOLE SNOMED Code(s): 10099022 (2) Antepartum bleeding, first trimester Current Visit: Yes Status: Acute Code(s): O20.9 - HEMORRHAGE IN EARLY , UNSPECIFIED SNOMED Code(s): 5397396871794202 Plan: 1. suction D&C
[2021-09-30] MEDS: SODIUM CHLORIDE 0.9% 1,000 ML IV SCH (08:10)
[2021-09-30] MEDS ORDERED: HYDROmorphone 0.5 MG/0.5 ML SYRINGE IVP ONE ×2 (11:07→12:05)
[2021-09-30] MEDS ORDERED: IV FLUID CONTINUATION 1,000 ML IV ONE (11:16)
[2021-09-30] MEDS ORDERED: fentaNYL (PF) 50 MCG/ML 2 ML AMP ONE (11:26)
[2021-09-30] MEDS ORDERED: KETOROLAC 15 MG/ML 1 ML VIAL ONE (11:26)
[2021-09-30] MEDS ORDERED: MIDAZOLAM 2 MG/2 ML VIAL ONE (11:26)
[2021-09-30] MEDS ORDERED: LIDOCAINE 1% INJ 10MG/ML (20 ML MDV) ONE (11:26)
[2021-09-30] MEDS ORDERED: PROPOFOL 10 MG/ML 20 ML VIAL IV ONE (11:26)
--- NOTE | 2021-09-30 11:50 | P.OP ---
Date of Procedure: 09/30/21 Preoperative Diagnosis: 1. blighted ovum Postoperative Diagnosis: 1. blighted ovum Procedure(s) Performed: suction D&C Anesthesia: MAC Surgeon: Alva Sparrow Estimated Blood Loss (ml): 50 IV fluids (ml): 100 Urine output (ml): 25 Pathology: other (products of conception) Condition: stable Disposition: PACU Operative Findings: Large amount of products of conception. Cervix was dilated to 1-2 cm at the beginning of the procedure Description of Procedure: Patient was taken to the operating room where general anesthesia was obtained without difficulty. She was prepped and draped in the normal sterile fashion in the dorsal lithotomy position, legs placed in the candycane stirrups. Bladder was drained of all urine. Weighted speculum place in vagina and anterior lip the cervix was grasped with tooth tenaculum. Products were seen at the cervical os room with a ring forcep. The cervix was 30 dilated and a #12 Hegar dilator fit. The #12 curved suction curet was introduced into the uterus and passed several times to obtain all blood and tissue. Sharp curet was used to sure all tissue had been removed. The suction curet was passed a few more times. Hemostasis was achieved. Patient tolerated procedure well, sponge and instrument counts correct 2. She was taken to recovery in stable condition.
[2021-09-30] MEDS ORDERED: SIMETHICONE 80 MG CHEWABLE PO PRN (12:21)
[2021-09-30] MEDS ORDERED: IBUPROFEN 600 MG TAB PO PRN (12:21)
[2021-09-30] MEDS ORDERED: Acetaminophen-Codeine 300-30mg TAB PO STA (12:48)
[2021-09-30 12:50] VITALS: TEMP 98.3
[2021-09-30 13:34] VITALS: RESP 16
[2021-09-30 13:53] VITALS: BP 113/73; PULSE 72
== END 2021-09-30 14:10 | disposition home or self-care (01) ==
LOC: EC 18:02 → 6PED 19:31
PROVIDERS: ADMIT Obstetrics & Gynecology; ATTEND Obstetrics & Gynecology
DX: O02.0 Blighted ovum and nonhydatidiform mole (principal); O03.4 Incomplete spontaneous abortion without complication; O99.331 Smoking (tobacco) complicating pregnancy, first trimester; F17.210 Nicotine dependence, cigarettes, uncomplicated; Z3A.12 12 weeks gestation of pregnancy; Z20.822 Contact with and (suspected) exposure to COVID-19; Z88.1 Allergy status to other antibiotic agents; Z98.891 History of uterine scar from previous surgery; Z90.49 Acquired absence of other specified parts of digestive tract
CPT/HCPCS: 59812; 99285; 96361 ×3; 96376 ×3; 96374; 96375; 36415; 88305; 85025; 87635; G0378 ×2; J2250; J2001; J3010; J1170 ×4; J1885 ×2; J2704